=== PATIENT | female | born 1955 | race Caucasian/White ===

== ENCOUNTER 2020-02-27 14:11 | Emergency (ER) | payer MEDICARE, BC, SELFPAY ==
--- NOTE | 2020-02-27 14:30 | PC.NURSE ---
Left without being seen by nursing staff, left from the registration desk.
== END 2020-02-27 14:30 | disposition left against medical advice (07) ==
PROVIDERS: Emergency Provider Nurse Practitioner Family
DX: Z53.21 Procedure and treatment not carried out due to patient leaving prior to being seen by health care provider (principal)
CPT/HCPCS: 99199

== ENCOUNTER 2023-09-01 11:23 | Outpatient (CLI) | payer MEDICARE, BC, SELFPAY ==
[2023-09-01 12:21] LABS: Hematocrit 43.8 % (37.0-47.0); Hemoglobin 12.9 g/dL (12.0-15.0); Mean Corpuscular HGB Conc 29.5 g/dl (32-36); Mean Corpuscular Hemoglobin 30.9 pg (26-34); Mean Platelet Volume 9.6 fl (7.4-10.4); Platelet Count Result 325 k/mm3 (150-375); Red Blood Count 4.17 M/mm3 (4.2-5.4); Red Cell Distribution Width 13.3 % (11.5-14.5); White Blood Count 4.5 K/mm3 (4.5-10.0)
[2023-09-01 12:29] LABS: Add Urine Microscopic? YES; Appearance Urine Clear (Clear); Bacteria Urine 4+ /hpf; Bilirubin Urine Negative (Negative); Blood Urine Negative (Negative); Color Urine Yellow (Yellow); Glucose Urine UA 3+ mg/dL (Negative); Ketones Urine Negative (Negative); Leukocyte Esterase Ur Negative LEU/UL (Negative); Nitrate Urine Positive (Negative); Non Pathogenic Casts 0-2; Protein Urine Negative (Negative); RBC Urine 0-2 /hpf (0-2); Specific Grav Ur 1.027 (1.001-1.035); Squamous Epithelial Cell Urine None Seen /hpf (Few); Urobilinogen Urine 0.2 mg/dL (<2.0); WBC Urine 0-5 /hpf (0-3)
[2023-09-01 12:32] LABS: Anion Gap 9 mmol/L (8-16); Blood Urea Nitrogen 24 mg/dL (7-17); Calcium 9.4 mg/dL (8.4-10.2); Carbon Dioxide 19 mmol/L (22-30); Chloride 104 mmol/L (98-107); Estimated Glomerular Filt Rate 55; Glucose 195 mg/dL (65-110); INR 0.8; Potassium 4.1 mmol/L (3.4-5.0); Prothrombin Time 11.9 Seconds (11.1-14.7); Sodium 132 mmol/L (137-145)
[2023-09-01 12:33] LABS: Partial Thromboplastin Time 26.7 Seconds (22.3-36.8)
[2023-09-01 13:14] LABS: Hemoglobin A1C 8.6 % (<5.7)
== END 2023-09-01 11:24 | disposition home or self-care (01) ==
LOC: ANHSURGERY 11:29
PROVIDERS: PCP Registered Nurse; Visit Provider Neurological Surgery
DX: Z01.818 Encounter for other preprocedural examination (principal); G56.01 Carpal tunnel syndrome, right upper limb
CPT/HCPCS: 36415; 80048; 83036; 85027; 85610; 85730

== ENCOUNTER 2023-10-04 00:48 | Day surgery (SDC) | payer MEDICARE, BC, SELFPAY ==
[2023-08-31 10:31] VITALS: BMI 27.8
--- NOTE | 2023-08-31 11:53 | PC.NURSE ---
Report to the Outpatient Waiting Room, entrance under the green pavilion located off [facility], at time __9:00AM on date __09/06/23 . Planned Procedure Time: __11:00AM . Time changes happen often and if your time is changed the preop area will call you the afternoon before. - You and your visitor will be asked to self-screen and do not enter if you have any COVID symptoms. - A mask is optional within the hospital at this time. Patients may have clear liquids (water, carbonated beverages, clear teas, apple juice) until 3 hours prior to surgery with a maximum of 20 ounces. - No food from midnight until time of surgery. Take the following medications with a SIP of water the morning of surgery: __ANORO ELLIPTA INHALER, ALBUTEROL INHALER NEEDED DO NOT STOP ANY OF YOUR OTHER PRESCRIPTION MEDICATIONS PRIOR TO SURGERY ?EXCEPT THE FOLLOWING Medications to discontinue per physician ____HOLD ASPIRIN, VITAMINS/SUPPLEMENTS AND SEMAGLUTIDE 7 DAYS PRE-OP PER DR ORDONEZ PER PATIENT Date to take last dose 08/29/23 Please no make-up, nail ivorian, hairspray, perfume, deodorant, or body powder the day of surgery. No jewelry (including any body piercings) or valuables the day of surgery, leave them at home. Please take a shower or bath the night before, or the morning of, surgery with an antibacterial soap. Wear comfortable, loose fitting clothing. - Jewelry must be removed prior to entering the operating room. Rings and piercings that are not removed may be cut off. - The hospital will not accept responsibility for valuables. - Please leave all valuables, including medications, at home the day of surgery. If you are going home after surgery, a licensed interstate bus driver must drive you home. - NO public transportation without another adult if you receive anesthesia. - We recommend that an adult stay with you for 24 hours following discharge. - We also recommend that you do not drive, make important decision, drink alcoholic beverages, or take any drugs that were not prescribed by your health care provider for at least 24 hours after your discharge time. Follow any additional instructions given to you from your surgeon. If you or anyone in your household have experienced Covid symptoms in the past week, please notify your surgeon or the nurse liaison at the phone number below for possible testing. Telephone instructions given to ____PATIENT and asked if any additional questions and then verbalized understanding. Patient advised to call surgeon office or pre surgery nurse liaison [phone] if any additional questions.
--- NOTE | 2023-09-28 13:12 | PC.NURSE ---
Report to the Outpatient Waiting Room, entrance under the green pavilion located off [facility], at time __9:00AM on date _10/04/23 . Planned Procedure Time: __11:00AM . Time changes happen often and if your time is changed the preop area will call you the afternoon before. - You and your visitor will be asked to self-screen and do not enter if you have any COVID symptoms. - A mask is optional within the hospital at this time. Patients may have clear liquids (water, carbonated beverages, clear teas, apple juice) until 3 hours prior to surgery with a maximum of 20 ounces. - No food from midnight until time of surgery. Take the following medications with a SIP of water the morning of surgery: ____ANORO ELLIPTA INHALER. MAY USE ALBUTEROL INHALER NEEDED DO NOT STOP ANY OF YOUR OTHER PRESCRIPTION MEDICATIONS PRIOR TO SURGERY ?EXCEPT THE FOLLOWING Medications to discontinue per physician HOLD ASPIRIN AND ALL VITAMINS/SUPPLEMENTS 7 DAYS PRE-OP PER DR ORDONEZ(PER PATIENT) Date to take last dose 09/26/23 Please no make-up, nail swedish, hairspray, perfume, deodorant, or body powder the day of surgery. No jewelry (including any body piercings) or valuables the day of surgery, leave them at home. Please take a shower or bath the night before, or the morning of, surgery with an antibacterial soap. Wear comfortable, loose fitting clothing. Children are encouraged to wear pajamas. - Jewelry must be removed prior to entering the operating room. Rings and piercings that are not removed may be cut off. - The hospital will not accept responsibility for valuables. - Please leave all valuables, including medications, at home the day of surgery. If you are going home after surgery, a licensed log driver must drive you home. - NO public transportation without another adult if you receive anesthesia. - We recommend that an adult stay with you for 24 hours following discharge. - We also recommend that you do not drive, make important decision, drink alcoholic beverages, or take any drugs that were not prescribed by your health care provider for at least 24 hours after your discharge time. For Pediatric surgeries, we recommend two adults accompany the child home. Follow any additional instructions given to you from your surgeon. If you or anyone in your household have experienced Covid symptoms in the past week, please notify your surgeon or the nurse liaison at the phone number below for possible testing. Telephone instructions given to ___PATIENT and asked if any additional questions and then verbalized understanding. Patient advised to call surgeon office or pre surgery nurse liaison [phone] if any additional questions.
[2023-10-04] MEDS: LACTATED RINGERS 1,000 ML 30 ML IV CONT (10:12)
[2023-10-04 10:43] VITALS: BP 142/66; PULSE 51; RESP 18; TEMP 36.1; O2SAT 95
[2023-10-04 10:43] LABS: Glucose Point of Care 115 mg/dl (65-105)
--- NOTE | 2023-10-04 10:44 | WPDANESEPPF ---
Anes - Initial Pre Proc Eval Procedure: Operation Date: 10/04/23 11:00 Proposed Procedures p Left Carpal Tunnel Release - Agatha Scott MD Date/Time: 10/04/23 10:44 Surgeon: Agatha Scott MD Pre Op Diagnosis: left Carpal Tunnel syndrome Patient Data Age: 68 Gender: F Height: 1.65 m Weight: 75.7 kg Allergies Allergy/AdvReac Type Severity Reaction Status Date / Time Penicillins Allergy Rash Verified 10/04/23 09:58 meperidine [From Demerol] AdvReac Vomiting Verified 10/04/23 09:58 Home Medications Medication Instructions Recorded Confirmed Type albuterol sulfate 90 mcg/actuation 1 inh inhalation Q4H PRN Shortness 08/09/23 10/04/23 History aerosol inhaler Of Breath Or Wheezing aspirin 81 mg tablet,delayed 81 mg PO DAILY 08/09/23 10/04/23 History release (Adult Low Dose Aspirin) coenzyme Q10 200 mg capsule 200 mg PO DAILY 08/09/23 10/04/23 History dapagliflozin propanediol 10 mg 10 mg PO DAILY 08/09/23 10/04/23 History tablet (Farxiga) denosumab 60 mg/mL subcutaneous 60 mg subcut [id number] 08/09/23 10/04/23 History syringe ezetimibe 10 mg tablet 10 mg PO DAILY 08/09/23 10/04/23 History lisinopril 40 mg tablet 40 mg PO QAM 08/09/23 10/04/23 History metformin 500 mg tablet 1,000 mg PO BID 08/09/23 10/04/23 History metoclopramide HCl 5 mg tablet 5 mg PO QID PRN GERD 08/09/23 10/04/23 History multivitamin 1 tablet PO DAILY 08/09/23 10/04/23 History omega-3 fatty acids 1,000 mg 1,000 mg PO BID 08/09/23 10/04/23 History capsule omeprazole 20 mg tablet,delayed 20 mg PO HS 08/09/23 10/04/23 History release pantoprazole 40 mg tablet,delayed 40 mg PO QAM 08/09/23 10/04/23 History release pioglitazone 30 mg tablet 30 mg PO QAM 08/09/23 10/04/23 History rosuvastatin 10 mg tablet 10 mg PO 2XW 08/09/23 10/04/23 History semaglutide 3 mg tablet (Rybelsus) 3 mg PO QAM 08/09/23 10/04/23 History umeclidinium 62.5 mcg-vilanterol 1 inh inhalation DAILY 08/09/23 10/04/23 History 25 mcg/actuation powdr for inhalation (Anoro Ellipta) Laboratory Tests 10/04/23 10:31 POC Capillary Glucose 115 H mg/dl (65-105) Patient hx anesthesia problems: none Family hx anesthesia problems: none Results Review: All pre-operative results and documents have been reviewed as part of the pre-operative evaluation. PMF Past Medical History Medical History History of cancer Family History Family History Father Alcoholism Diabetes mellitus Hypertension Heart disease Mother Hypertension Heart disease Depression Sibling Alcoholism Diabetes mellitus Hypertension Heart disease Grandparent Diabetes mellitus Hypertension Depression Cerebrovascular accident Grandparent Hypertension Heart disease Social History Social History Smoking packs per day: 1 Smoking cigarettes per day: 20.0 Years smoked: 20 Smoking pack-years: 20.00 Smoking status: Former smoker Tobacco type: cigarettes Smoking end date: 12/10/92 Alcohol intake: never Substance use: never Substance use type: does not use Do You Feel Safe in your Home?: Yes Lack of Transportation: No Lack of Food: Never True Current Housing: I Have Housing Concerned About Future Housing: No Difficulty Paying Gas/Electric Bills: No Difficulty Paying for Meds: No Currently Unemployed: No Education: Bachelor's Degree Difficulty w/ Childcare or Family Care: No Living arrangements: alone Spiritual care concerns: No Anes - Eval Final PreProcedure Day of Procedure 10/04/23 10:44 Patient weight: overweight Heart: regular rate and rhythm Lungs: clear to auscultation Airway: Mallampati scale and special considerations (Implants. ) Neurological: alert and oriented Last oral intake: >/= 8 hours A
--- NOTE | 2023-10-04 10:53 | PM.IMHP ---
H&P: HPI History of Present Illness Date/Time: 10/04/23 10:53 Chief Complaint: carpal tunnel syndrome Narrative: Ms. Mcgarry is a? 68-year-old female with history of diabetes, hypertension, coronary artery disease, COPD and breast cancer who was referred by Dr. Hyde for evaluation of carpal tunnel syndrome.? She reports several years of progressive symptoms in the form of numbness in her 2nd through 4th fingers in particular and loss of fine motor function in her hands.? She has seemed this is related to her diabetes, but when she mentioned it to Dr. Hyde on an EMG being performed for her lower extremities, she was told that she had fairly severe bilateral carpal tunnel syndrome.? She denies ever having significant pain in her hands.? Her symptoms are worst 1st thing in the morning.? Her symptoms have progressed to point that she is no longer able to tie her shoes or button clothing. ? She notably has a history of coronary artery disease for which she follows with Dr. Scott at [facility].? She takes a baby aspirin.? She has never had any stents or heart surgery.? She uses inhalers for her COPD but no oxygen.? Her A1c was recently found to be 7.8%, and she was prescribed an additional medication to help with this. Review of Systems Review of Systems: All systems reviewed & are unremarkable except as noted in HPI and below PMFSH Past Medical History Medical History History of cancer Family History Family History Father Alcoholism Diabetes mellitus Hypertension Heart disease Mother Hypertension Heart disease Depression Sibling Alcoholism Diabetes mellitus Hypertension Heart disease Grandparent Diabetes mellitus Hypertension Depression Cerebrovascular accident Grandparent Hypertension Heart disease Social History Social History Smoking packs per day: 1 Smoking cigarettes per day: 20.0 Years smoked: 20 Smoking pack-years: 20.00 Smoking status: Former smoker Tobacco type: cigarettes Smoking end date: 12/10/92 Alcohol intake: never Substance use: never Substance use type: does not use Do You Feel Safe in your Home?: Yes Lack of Transportation: No Lack of Food: Never True Current Housing: I Have Housing Concerned About Future Housing: No Difficulty Paying Gas/Electric Bills: No Difficulty Paying for Meds: No Currently Unemployed: No Education: Bachelor's Degree Difficulty w/ Childcare or Family Care: No Living arrangements: alone Spiritual care concerns: No Meds Home Medications and Allergies Home Medications Medication Instructions Recorded Confirmed Type albuterol sulfate 90 mcg/actuation 1 inh inhalation Q4H PRN Shortness 08/09/23 10/04/23 History aerosol inhaler Of Breath Or Wheezing aspirin 81 mg tablet,delayed 81 mg PO DAILY 08/09/23 10/04/23 History release (Adult Low Dose Aspirin) coenzyme Q10 200 mg capsule 200 mg PO DAILY 08/09/23 10/04/23 History dapagliflozin propanediol 10 mg 10 mg PO DAILY 08/09/23 10/04/23 History tablet (Farxiga) denosumab 60 mg/mL subcutaneous 60 mg subcut [id number] 08/09/23 10/04/23 History syringe ezetimibe 10 mg tablet 10 mg PO DAILY 08/09/23 10/04/23 History lisinopril 40 mg tablet 40 mg PO QAM 08/09/23 10/04/23 History metformin 500 mg tablet 1,000 mg PO BID 08/09/23 10/04/23 History metoclopramide HCl 5 mg tablet 5 mg PO QID PRN GERD 08/09/23 10/04/23 History multivitamin 1 tablet PO DAILY 08/09/23 10/04/23 History omega-3 fatty acids 1,000 mg 1,000 mg PO BID 08/09/23 10/04/23 History capsule omeprazole 20 mg tablet,delayed 20 mg PO HS 08/09/23 10/04/23 History release pantoprazole 40 mg tablet,delayed 40 mg PO QAM 08/09/23 10/04/23 History release pioglitazone 30 mg tabl
--- NOTE | 2023-10-04 10:55 | WPDHPUPDATE1 ---
History and Physical Update Update Date/Time: 10/04/23 10:55 History and Physical has been reviewed, including an updated exam of the patient. There are NO changes in the patient's condition. Risks, benefits, and alternatives have been discussed and questions answered. Patient agrees to proceed with procedure.
[2023-10-04] MEDS: ceFAZolin 2 GM/D5W 50 ML 2 GM/50 ML BAG IVPB (11:08)
[2023-10-04] MEDS: BUPivacaine HCL 0.5% 10 ML AMP INFILTRATE (11:21)
[2023-10-04 11:49] VITALS: BP 116/58; PULSE 74; RESP 14; O2SAT 98
--- NOTE | 2023-10-04 11:50 | PM.OP ---
Procedure Note - Brief Procedure Note - Brief Date of procedure: 10/04/23 left Carpal Tunnel syndrome Post-op diagnosis: Same Procedure performed: Left carpal tunnel release Surgeon: Agatha Scott MD Embedded Nurse: Sharmaine Anesthesia: GETA Findings: Left carpal tunnel release without complication Estimated blood loss (mL): 5 Drains: No Packing: No Pathology: None sent Complications: No immediate complications Condition: Stable Disposition: PACU
--- NOTE | 2023-10-04 11:51 | P.OP_ITS ---
Procedure Note - Detailed Date of Procedure 10/04/23 Pre-op Diagnosis left Carpal Tunnel syndrome Post-op Diagnosis Same Procedure Performed Left carpal tunnel release Surgeon Agatha Scott MD Mobile Application Development Lead Sharmaine Anesthesia General Indications Ms. Mcgarry is a 68-year-old female with history of diabetes, hypertension, coronary artery disease, COPD, and breast cancer presents with several years of progressive numbness in her hands as well as worsening fine motor function.? On physical exam, she does have decreased sensation light touch in the left hand, positive Phalen's bilaterally, and slight opponens pollicis weakness on the right side.? She had a recent EMG showing evidence of severe bilateral median neuropathy at the carpal tunnel.? Given the progression of her weakness in particular, I have recommended proceeding with surgery in the form of a left carpal tunnel release.?Risks were discussed including bleeding, pain, infection, failure to relieve symptoms, recurrent symptoms, and nerve damage. The patient provided written informed consent to proceed. Description of Procedure The patient was brought back to the operating room and transferred supine to the OR table. Sedation was administered by anesthesia. The planned incision was marked on the left hand. The arm was prepped and draped in usual sterile fashion. Time out was conducted. Local anesthesia was injected into the planned incision. A 15-blade scalpel was used to open the planned incision. Bleeding was controlled with the bipolar. The soft tissue was spread bluntly with a Metzenbaum scissors to expose the flexor retinaculum. A self-retaining retractor was placed. A new 15-blade scalpel was used to open the distal portion of the flexor retinaculum. A freer was then placed under the flexor retinaculum to protect the underlying structures. The tenotomy scissors were used to open the proximal portion of the flexor retinaculum. The freer was passed into the proximal portion of the exposure to ensure the carpal tunnel was fully decompressed. Hemostasis was achieved with the bipolar. The incision was copiously irrigated. The incision was closed with 3-0 nylon in vertical mattress fashion. Sterile dressings were applied. The patient was awoken from anesthesia and transferred to PACU without incident. Billing code: [id number] Estimated Blood Loss 5 Drains No Packing No Pathology None sent Complications None Condition Stable Disposition PACU [facility] Billing Surgery - Charge Forward: Surgery Billing
[2023-10-04 12:09] LABS: Glucose Point of Care 97 mg/dl (65-105)
[2023-10-04 12:10] VITALS: BP 116/81; PULSE 70; RESP 14; O2SAT 99
[2023-10-04 12:40] VITALS: BP 135/59; PULSE 69; RESP 14
== END 2023-10-04 12:57 | disposition home or self-care (01) ==
PROVIDERS: PCP Registered Nurse; Visit Provider Neurological Surgery
PROC: (CPT 64721; principal; 2023-10-04 11:00)
DX: G56.02 Carpal tunnel syndrome, left upper limb (principal); I25.10 Atherosclerotic heart disease of native coronary artery without angina pectoris; I10 Essential (primary) hypertension; E11.9 Type 2 diabetes mellitus without complications; J44.9 Chronic obstructive pulmonary disease, unspecified; Z85.3 Personal history of malignant neoplasm of breast; Z79.51 Long term (current) use of inhaled steroids; Z79.82 Long term (current) use of aspirin; Z79.84 Long term (current) use of oral hypoglycemic drugs; Z87.891 Personal history of nicotine dependence
CPT/HCPCS: 64721; 82948; A4565; A9270; J0690; J1100; J2250; J2405; J2704; J3010; J7120

== ENCOUNTER 2023-10-21 16:15 | Emergency (ER) | payer MEDICARE, BC, SELFPAY ==
--- NOTE | ~2023-10-21 | XR_ITS ---
EXAM: XR foot RT min 3V DATE: 10/21/2023 16:30 HISTORY: right foot pain off on for 2 weeks,worsening/no injury . COMPARISON: None available. FINDINGS: Decreased mineralization. No fracture or dislocation. No lytic or blastic lesion. Mild sca ttered degenerative changes. Plantar enthesopathy. No erosion or periosteal change. Soft tissues with in normal limits. IMPRESSION: No acute osseous finding in the right foot. Reviewed, dictated and finalized at location K.
[2023-10-21 16:37] VITALS: BP 137/63; PULSE 80; RESP 16; TEMP 36.6; O2SAT 100
[2023-10-21 16:39] VITALS: BP 137/63; PULSE 80; RESP 16; TEMP 36.6; O2SAT 100
--- NOTE | 2023-10-21 16:48 | ED.EXTPRO ---
HPI - Extremity Problem General Chief complaint: Extremity Problem,Nontraumatic Stated complaint: rt lower extremity pain Time Seen by Provider: 10/21/23 16:18 Source: patient Mode of arrival: ambulatory Limitations: no limitations History of Present Illness HPI Narrative: 5-year-old female presents to [facility] complaints of pain to right foot for the past 2 weeks. Patient reports that 3 weeks ago she started with numbness to the plantar aspect of her right foot after cutting grass. Patient reports that she had started 2 weeks ago with pain to her right foot. Patient reports that the pain became worse 4-5 days ago. 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 Patient has been taking [id number] ibuprofen with minimal relief. Patient denies swelling, erythema, open wounds or bruising. Patient reports that the pain is currently 0/10. Patient reports that pain increases with ambulation MD Complaint: extremity pain Location: right Radiation: none Associated symptoms: denies other symptoms Related Data Home Medications Medication Instructions Recorded Confirmed albuterol sulfate 90 mcg/actuation 1 inh inhalation Q4H Shortness Of 08/09/23 10/04/23 aerosol inhaler Breath Or Wheezing aspirin 81 mg tablet,delayed 81 mg PO DAILY 08/09/23 10/04/23 release (Adult Low Dose Aspirin) coenzyme Q10 200 mg capsule 200 mg PO DAILY 08/09/23 10/04/23 dapagliflozin propanediol 10 mg 10 mg PO DAILY 08/09/23 10/04/23 tablet (Farxiga) denosumab 60 mg/mL subcutaneous 60 mg subcut [id number] 08/09/23 10/04/23 syringe ezetimibe 10 mg tablet 10 mg PO DAILY 08/09/23 10/04/23 lisinopril 40 mg tablet 40 mg PO QAM 08/09/23 10/04/23 metformin 500 mg tablet 1,000 mg PO BID 08/09/23 10/04/23 metoclopramide HCl 5 mg tablet 5 mg PO QID GERD 08/09/23 10/04/23 multivitamin 1 tablet PO DAILY 08/09/23 10/04/23 omega-3 fatty acids 1,000 mg 1,000 mg PO BID 08/09/23 10/04/23 capsule omeprazole 20 mg tablet,delayed 20 mg PO HS 08/09/23 10/04/23 release pantoprazole 40 mg tablet,delayed 40 mg PO QAM 08/09/23 10/04/23 release pioglitazone 30 mg tablet 30 mg PO QAM 08/09/23 10/04/23 rosuvastatin 10 mg tablet 10 mg PO 2XW 08/09/23 10/04/23 semaglutide 3 mg tablet (Rybelsus) 3 mg PO QAM 08/09/23 10/04/23 umeclidinium 62.5 mcg-vilanterol 1 inh inhalation DAILY 08/09/23 10/04/23 25 mcg/actuation powdr for inhalation (Anoro Ellipta) ferrous sulfate 325 mg (65 mg 325 mg PO DAILY 10/21/23 10/21/23 iron) tablet fluticasone propionate 50 1 spray intranasal DAILY 10/21/23 10/21/23 mcg/actuation nasal spray,suspension Allergies Allergy/AdvReac Type Severity Reaction Status Date / Time Penicillins Allergy Rash Verified 10/21/23 16:37 meperidine [From Demerol] AdvReac Vomiting Verified 10/21/23 16:37 Review of Systems Constitutional: Constitutional: Denies fatigue, Denies fever(s) and Denies weakness ENT: Denies vertigo and Denies dizziness Cardiovascular: Cardiovascular: Denies chest pain Respiratory: Respiratory: Denies cough, Denies dyspnea and Denies wheezing Gastrointestinal: Gastrointestinal: Denies diarrhea, Denies nausea and Denies vomiting Musculoskeletal: Musculoskeletal: Reports arthralgias, Denies joint swelling and Denies muscle cramps Comments: Right foot pain Integumentary/Breasts: Skin/Breast: Denies rash Neurologic: Denies dizziness, Denies syncope and Denies headache(s) [facility] Past Medical History Medical History History of cancer Family History Family History Father Alcoholism Diabetes mellitus Hypertension Heart disease Mother Hypertension Heart disease Depression Sibling Alcoholism Diabetes mellitus Hypertension Heart disease Grandparent Diabetes mellitus Hypertension Depression Cerebrovascular accident
== END 2023-10-21 17:05 | disposition home or self-care (01) ==
PROVIDERS: Emergency Provider Nurse Practitioner Family; PCP Registered Nurse
DX: M79.671 Pain in right foot (principal); Z79.82 Long term (current) use of aspirin; Z87.891 Personal history of nicotine dependence
CPT/HCPCS: 73630; 99213; G0463

== ENCOUNTER 2025-01-25 15:36 | Emergency (ER) | payer MEDICARE, BC, SELFPAY ==
--- NOTE | ~2025-01-25 | XR_ITS ---
EXAMINATION: XR chest 2V Exam Date/Time: 01/25/2025 16:06 CDT HISTORY: cough, coarse LL lobe Comparison: None. RESULT: Lines, tubes, and devices: Cholecystectomy clips. Lungs and pleura: 7 mm right upper lung pulmonary nodule. Segmental focus of groundglass opacity in the left midlung. Cardiomediastinal silhouette: Stable. Other: No acute upper abdominal finding. Mild retrolisthesis at T11-12 with severe degenerative valerio ge. Mild anterior wedge deformity at T12 and L1. IMPRESSION: Segmental groundglass opacity in the left midlung concerning for infection. 7 mm right upper lobe pulmonary nodule, recommend nonemergent, outpatient low-dose noncontrast CT of the chest for confirmation and further characterization. Grade 1 retrolisthesis at T11-12 with severe degenerative disc disease at that level. Mild anterior wedge deformity at T12 and L1, presumably chronic in the absence of acute pain/tenderne ss. Reviewed, dictated and finalized at location K. IMPRESSION: Segmental groundglass opacity in the left midlung concerning for infection. 7 mm right upper lobe pulmonary nodule, recommend nonemergent, outpatient low-d ose noncontrast CT of the chest for confirmation and further characterization. Grade 1 retrolisthesis at T11-12 with severe degenerative disc disease at that level. Mild anterior wedge deformity at T12 and L1, presumably chronic in the absence of acute pain/tenderness.
--- OUTSIDE RECORDS SUMMARY | 2025-01-25 15:40 | XMS_ITS | Encounter Summary ---
Author Organization [facility] Address [facility] [place] [address] Care Team Providers Care Full Decator Operator Name Role Phone Kvng Wray MD Primary Care Provider U Emilee Daley APRN Primary Care Provider [phone] Genia Cortes PharmD Unavailable [phone] Zacarias Scott MD Unavailable [phone] Encounter Details Date Type Department Care Team (Late st Contact Info) Description 02/01/2022 MyCThe [employer] Message Enc [facility] Medical Group Family & Internal Medicine [address] [address] Kvng Wray MD Back MRI Social History Tobacco Use Types Packs/Day Years Used Date Smoking Tobacco: Former Cigarettes 1 15 0 10/16/1977 - 10/16/1992 Smokeless Tobacco: Never Alcohol Use Standard Drinks/Week Comments Not Currently 0 (1 standard drink = 0.6 oz pur e alcohol) AUDIT-C Answer Date Recorded Q1: How often do you have a drink containing alc ohol? Never 10/16/2020 Average Number of Drinks Not on file 021 Frequency of Binge Drinking Not on file 12/2020 PHQ-2 Answer Date Recorded PHQ-2 Score - If the patient scores above 3, please move on to questions 3-9 0 02/16/2021 Comments No Sex and Gender Information Value Date Recorded Sex Assigned at Female 06/25/2024 11:30 AM NATURAL FABRICATOR Legal Sex Female 10:25 AM CDT Gender Identity Female 10/22/2021 9:50 AM CDT Sexual Orientation Not on file COVID-19 Exposure Response Date Recorded In the last 10 days, have yo u been in contact with someone who was confirmed or suspected to have Coronavirus/COVID-19? No / Unsure 02/01/2022 9:42 AM CDT documented as of this encounter Progress Notes * Jami Medina RN - 02/03/2022 10:14 AM CDT Please advise. documented in this encounter Plan of Treatment Upcoming Encounters Date Type Department Care Team (Late st Contact Info) Description 02/14/2025 11:20 AM CDT Office Visit [facility] Family & Internal Medicine [facility] [id number] [place] [phone] Emilee Lehman APRN [address] [address] 03/28/2025 10:28 AM CDT Hospital Encounter [facility] [address] [place] [place] [address] Rodrigo Lomeli MD [address] [place] [address] 03/28/2025 10:28 AM CDT - 03/28/2025 10:50 AM CDT Surgery [facility] [address] [place] [address] Rodrigo Lomeli MD [address] [place] [address] EGD 11/14/2025 10:20 AM CDT Office Visit [facility], [address] [place] [phone] Cheryl Hancock MD [address] [place] [address] Scheduled Procedures Name Priority Associated Diagnoses Date/Ti me EGD Gastroesophageal reflux disease, unspecified whether esophagitis present HH (hiatus hernia) RUQ pain 03/28/2025 10:28 AM CDT documented as of this encounter Visit Diagnoses Not on filedocumented in this encounter Additional Health Concerns Infection Onset Date Last Indicated Resolved Time MRSA Comment:02/17/21 +MRSA Nasal 06/09/22 negative nares (JK) 02/18/2021 02/18/2021 COVID-19 Rule Out 10/14/2022 10/14/2022 10/14/2022 3:19 PM CDT Influenza - Seasonal 10/14/2022 10/14/2022 023 12:32 AM CDT COVID-19 Rule Out 06/02/2023 06/02/2023 06/02/2023 10:09 AM NATURAL FABRICATOR Influenza - Seasonal 06/02/2023 06/02/2023 024 12:32 AM NATURAL FABRICATOR COVID-19 Rule Out 06/30/2023 06/30/2023 06/30/2023 4:38 PM NATURAL FABRICATOR Influenza - Seasonal 06/30/2023 06/30/2023 024 12:32 AM NATURAL FABRICATOR COVID-19 Rule Out 11/21/2023 11/21/2023 11/21/2023 12:22 PM CDT Influenza - Seasonal 11/21/2023 11/21/2023 024 12:33 AM CDT COVID-19 Rule Out 07/17/2024 07/17/2024 07/17/2024 1:58 PM NATURAL FABRICATOR Influenza - Seasonal 07/17/2024 07/17/2024 025 12:32 AM NATURAL FABRICATOR Assessment Noted Time PHQ-9 Depression Total Score: 1 02/17/20 10:04 AM CDT documented as of this encounter Care Teams Full Decator Operator Relationship Specialty Start Date End Date Kvng Wray MD PCP - General INTERNAL MEDICINE 10/26/20 08/03/22 Emilee Lehman APRN [address] [place] [address] PCP - General NURSE PRACTITIONER 08/04/22 Genia Cortes, PharmD [address] [place] [address] Lead Manufacturing Technician (Ambulatory) Pharmacist 01/02/23 02/26/23 [place] [address] [place] [address] Consulting Physician CARDIOVASCULAR DISEASE 11/20/24 documented as of this encounter
--- OUTSIDE RECORDS SUMMARY | 2025-01-25 15:40 | XMS_ITS | Encounter Summary ---
Author Organization [facility] Address [facility] [place] [address] Care Team Providers Care Web Development Intern Name Role Phone Kvng Wray MD Primary Care Provider U Emilee Daley APRN Primary Care Provider [phone] Genia Cortes PharmD Unavailable [phone] Zacarias Scott MD Unavailable [phone] Encounter Details Date Type Department Care Team (Late st Contact Info) Description 01/18/2021 MyChart Message Enc [facility] Medical Group Family & Internal Medicine [address] [address] Kvng Wray MD RE: Medication Questions Social History Tobacco Use Types Packs/Day Years Used Date Smoking Tobacco: Former Cigarettes 1 15 0 10/16/1996 - 10/17/2011 Smokeless Tobacco: Never Alcohol Use Standard Drinks/Week Comments Yes 0 (1 standard drink = 0.6 oz pur e alcohol) yearly AUDIT-C Answer Date Recorded Q1: How often do you have a drink containing alc ohol? Never 10/16/2020 Average Number of Drinks Not on file 021 Frequency of Binge Drinking Not on file 12/2020 Comments No Sex and Gender Information Value Date Recorded Sex Assigned at Female 06/25/2024 11:30 AM CREPE SOLE WIRE BRUSHER Legal Sex Female 10:25 AM CDT Gender Identity Female 10/22/2021 9:50 AM CDT Sexual Orientation Not on file COVID-19 Exposure Response Date Recorded In the last month, have you been in contact with someone who was confirmed or suspected to have Coronavirus / COVID-19? No / Unsure 01/08/2021 8:08 AM CDT documented as of this encounter Plan of Treatment Upcoming Encounters Date Type Department Care Team (Late st Contact Info) Description 02/14/2025 11:20 AM CDT Office Visit [facility] Family & Internal Medicine - [place] [address] [place] [address] Emilee Lehman, SHELLFISH FARMING SUPERVISOR [address] [phone] 03/28/2025 10:28 AM CDT Hospital Encounter [facility] [address] [place] [address] Rodrigo Lomeli MD [address] [place] [address] 03/28/2025 10:28 AM CDT - 03/28/2025 10:50 AM CDT Surgery [facility] [address] [place] [address] Rodrigo Lomeli MD [address] [place] [address] EGD 11/14/2025 10:20 AM CDT Office Visit [facility] Multispecialty Care - [address], [address] [phone] Cheryl Hancock MD [address] [place] [address] Scheduled Procedures Name Priority Associated Diagnoses Date/Ti [...] Rule Out 06/02/2023 06/02/2023 06/02/2023 10:09 AM CREPE SOLE WIRE BRUSHER Influenza - Seasonal 06/02/2023 06/02/2023 024 12:32 AM CREPE SOLE WIRE BRUSHER COVID-19 Rule Out 06/30/2023 06/30/2023 06/30/2023 4:38 PM CREPE SOLE WIRE BRUSHER Influenza - Seasonal 06/30/2023 06/30/2023 024 12:32 AM CREPE SOLE WIRE BRUSHER COVID-19 Rule Out 11/21/2023 11/21/2023 11/21/2023 12:22 PM CDT Influenza - Seasonal 11/21/2023 11/21/2023 024 12:33 AM CDT COVID-19 Rule Out 07/17/2024 07/17/2024 07/17/2024 1:58 PM CREPE SOLE WIRE BRUSHER Influenza - Seasonal 07/17/2024 07/17/2024 025 12:32 AM CREPE SOLE WIRE BRUSHER documented as of this encounter Care Teams Web Development Intern Relationship Specialty Start Date End Date Kvng Wray MD PCP - General INTERNAL MEDICINE 10/26/20 08/03/22 Emilee Lehman APRN [address] [facility] [address] [place] [address] PCP - General NURSE PRACTITIONER 08/04/22 Genia Cortes, PharmD [address] [place] [address] Surgical Supplies Sterilizer (Ambulatory) Pharmacist 01/02/23 02/26/23 [place] [address] [address] [address] Consulting Physician CARDIOVASCULAR DISEASE 11/20/24 documented as of this encounter
--- OUTSIDE RECORDS SUMMARY | 2025-01-25 15:40 | XMS_ITS | Encounter Summary ---
Author Organization [facility] Address [facility] [place] [address] Care Team Providers Care Heading Machine Operator Name Role Phone Kvng Wray MD Primary Care Provider U Emilee Daley APRN Primary Care Provider [phone] eGnia Cortes PharmD Unavailable [phone] Zacarias Scott MD Unavailable [phone] Encounter Details Date Type Department Care Team (Late st Contact Info) Description 03/01/[address] [facility] Medical Group Family & Internal Medicine [address] [address] Kvng Wray MD Herniated Disk Treatment Options Social History Tobacco Use Types Packs/Day Years [...] Sex Assigned at Female 06/25/2024 11:30 AM CAR CHECKER Legal Sex Female 10:25 AM CDT Gender Identity Female 10/22/2021 9:50 AM CDT Sexual Orientation Not on file COVID-19 Exposure Response Date Recorded In the last 10 days, have yo u been in contact with someone who was confirmed or suspected to have Coronavirus/COVID-19? No / Unsure 02/24/2022 7:49 AM CDT documented as of this encounter Plan of Treatment Upcoming Encounters Date Type Department Care Team (Late st Contact Info) Description 02/14/2025 11:20 AM CDT Office Visit [facility] Family & Internal Medicine - [place] [address] [place] [phone] Emilee Lehman APRN [address] [address] 03/28/2025 10:28 AM CDT Hospital Encounter [facility] [address] [place] [address] Rodrigo Lomeli MD [address] [place] [address] 03/28/2025 10:28 AM CDT - 03/28/2025 10:50 AM CDT Surgery [facility] [address] [place] [address] Rodrigo Lomeli MD [address] [place] [address] EGD 11/14/2025 10:20 AM CDT Office Visit [facility] Multispecialty Care - [address], [address] [place] [phone] Cheryl Hancock MD [address] [place] [address] Scheduled Procedures Name Priority Associated Diagnoses Date/Ti [...] Rule Out 06/02/2023 06/02/2023 06/02/2023 10:09 AM CAR CHECKER Influenza - Seasonal 06/02/2023 06/02/2023 024 12:32 AM CAR CHECKER COVID-19 Rule Out 06/30/2023 06/30/2023 06/30/2023 4:38 PM CAR CHECKER Influenza - Seasonal 06/30/2023 06/30/2023 024 12:32 AM CAR CHECKER COVID-19 Rule Out 11/21/2023 11/21/2023 11/21/2023 12:22 PM CDT Influenza - Seasonal 11/21/2023 11/21/2023 024 12:33 AM CDT COVID-19 Rule Out 07/17/2024 07/17/2024 07/17/2024 1:58 PM CAR CHECKER Influenza - Seasonal 07/17/2024 07/17/2024 025 12:32 AM CAR CHECKER Assessment Noted Time PHQ-9 Depression Total Score: 1 02/17/20 10:04 AM CDT documented as of this encounter Care Teams Heading Machine Operator Relationship Specialty Start Date End Date Kvng Wray MD PCP - General INTERNAL MEDICINE 10/26/20 08/03/22 Emilee Lehman APRN [address] [place] [address] PCP - General NURSE PRACTITIONER 08/04/22 Genia Cortes, PharmD [address] [place] [address] Conservation Specialist (Ambulatory) Pharmacist 01/02/23 02/26/23 [place] [address] [address] [place] [address] Consulting Physician CARDIOVASCULAR DISEASE 11/20/24 documented as of this encounter
--- OUTSIDE RECORDS SUMMARY | 2025-01-25 15:40 | XMS_ITS | Encounter Summary ---
Author Organization [facility] Address [facility] [place] [address] Care Team Providers Care Packing Floor Worker Name Role Phone Kvng Wray MD Primary Care Provider U Emilee Daley APRN Primary Care Provider [phone] Genia Cortes PharmD Unavailable [phone] Zacarias Scott MD Unavailable [phone] Encounter Details Date Type Department Care Team (Late st Contact Info) Description 12/17/2020 MyChart Message Enc [facility] Medical Group Family & Internal Medicine [address] [address] Kvng Wray MD RE: Other Social History Tobacco Use Types Packs/Day Years [...] Sex Assigned at Female 06/25/2024 11:30 AM DEPUTY COMMONWEALTH'S ATTORNEY Legal Sex Female 10:25 AM CDT Gender Identity Female 10/22/2021 9:50 AM CDT Sexual Orientation Not on file COVID-19 Exposure Response Date Recorded In the last month, have you been in contact with someone who was confirmed or suspected to have Coronavirus / COVID-19? No / Unsure 11/24/2020 2:27 PM CDT documented as of this encounter Progress Notes * Jami Medina RN - 12/21/2020 8:44 AM CDT Sent plan to [facility]-should be calling to set up injections * Wendy Candelario MA - 12/18/2020 8:07 AM CDT Please advise * Jami Medina RN - 12/17/2020 12:47 PM CDT Please advise documented in this encounter Plan of Treatment Upcoming Encounters Date Type Department Care Team (Late st Contact Info) Description 02/14/2025 11:20 AM CDT Office Visit [facility] Medical Group Family & Internal Medicine [facility] [address] [place] [address] Emilee Lehman APRN [address] [address] 03/28/2025 10:28 AM CDT Hospital Encounter [facility] [phone] [place] [address] Rodrigo Lomeli MD [address] [place] [address] 03/28/2025 10:28 AM CDT - 03/28/2025 10:50 AM CDT Surgery [facility] [address] [place] [address] Rodrigo Lomeli MD 3 [facility] [address] [place] [address] EGD 11/14/2025 10:20 AM CDT Office Visit [facility] Medical Group Mult[facility]ialty Care - [facility], [address] [place] [address] Cheryl Hancock MD 3 [place] [address] Scheduled Procedures Name Priority Associated Diagnoses Date/Ti [...] Rule Out 06/02/2023 06/02/2023 06/02/2023 10:09 AM DEPUTY COMMONWEALTH'S ATTORNEY Influenza - Seasonal 06/02/2023 06/02/2023 024 12:32 AM DEPUTY COMMONWEALTH'S ATTORNEY COVID-19 Rule Out 06/30/2023 06/30/2023 06/30/2023 4:38 PM DEPUTY COMMONWEALTH'S ATTORNEY Influenza - Seasonal 06/30/2023 06/30/2023 024 12:32 AM DEPUTY COMMONWEALTH'S ATTORNEY COVID-19 Rule Out 11/21/2023 11/21/2023 11/21/2023 12:22 PM CDT Influenza - Seasonal 11/21/2023 11/21/202311/30/2 024 12:33 AM CDT COVID-19 Rule Out 07/17/2024 07/17/2024 07/17/2024 1:58 PM DEPUTY COMMONWEALTH'S ATTORNEY Influenza - Seasonal 07/17/2024 07/17/2024 025 12:32 AM DEPUTY COMMONWEALTH'S ATTORNEY documented as of this encounter Care Teams Packing Floor Worker Relationship Specialty Start Date End Date Kvng Wray MD PCP - General INTERNAL MEDICINE 10/26/20 08/03/22 Emilee Lehman APRN [address] [place], [place] [phone] PCP - General NURSE PRACTITIONER 08/04/22 Genia Cortes, PharmD [address] [place] [address] Grain Handler (Ambulatory) Pharmacist 01/02/23 02/26/23 [place] [address] [place], [place] [phone] Consulting Physician CARDIOVASCULAR DISEASE 11/20/24 documented as of this encounter
--- OUTSIDE RECORDS SUMMARY | 2025-01-25 15:40 | XMS_ITS | Encounter Summary ---
Author Organization [facility] - [facility] Address [address] [place] [address] Care Team Providers Care Wool Dyer Name Role Phone Emilee Lehman APRN Primary Care Provider [phone] Zacarias Scott MD Unavailable [phone] Encounter Details Date Type Department Care Team (Late st Contact Info) Description 08/03/[address] [place] [address] [facility] Medical Group Multispecialty Care - [address] [place] [address] [employer], [facility] Provider test results Social History Tobacco Use Types Packs/Day Years Used Date Smoking Tobacco: Former Cigarettes 1 15 0 10/16/1977 - 10/16/1992 Smokeless Tobacco: Never Alcohol Use Standard Drinks/Week Comments Not Currently 0 (1 standard drink = 0.6 oz pur e alcohol) AUDIT-C Answer Date Recorded Q1: How often do you have a drink containing alcohol? Monthly or less 08/04/2022 Q2: How many drinks containi ng alcohol do you have on a typical day when you are drinking? Patient does not drink Q3: How often do you have si x or more drinks on one occasion? Never 08/04/2022 PHQ-2 Answer Date Recorded Patient Health Questionnaire-2 Score 0 06/30/2023 Comments No Sex and Gender Information Value Date Recorded Sex Assigned at Female 06/25/2024 11:30 AM FIELD MARKETING ASSOCIATE Legal Sex Female 10:25 AM CDT Gender Identity Female 10/22/2021 9:50 AM CDT Sexual Orientation Not on file documented as of this encounter Functional Status * RETIRED Are you deaf or do you have serious difficulty hearing Answer Date of Assessment Author Status No 06/15/2022 7:00 PM FIELD MARKETING ASSOCIATE Activ e * RETIRED Are you blind or do you have serious difficulty seeing, even when wearing glasses? Answer Date of Assessment Author Status No 06/15/2022 7:00 PM FIELD MARKETING ASSOCIATE Activ e * Do you have serious difficulty walking or climbing stairs? Answer Date of Assessment Author Status No 06/15/2022 7:00 PM Eufemia Lozano RN Active * Do you have difficulty dressing or bathing? Answer Date of Assessment Author Status No 06/15/2022 7:00 PM Eufemia Lozano RN Active * Because of a physical, mental, or emotional condition, do you have difficulty doing errands alone such as visiting a doctor's office or shopping? Answer Date of Assessment Author Status No 06/15/2022 7:00 PM Eufemia Lozano RN Active documented as of this encounter Mental Status * Because of a physical, mental, or emotional condition, do you have serious difficulty concentrating, remembering, or making decisions? Answer Entry Date Author Status No 06/15/2022 7:00 PM Eufemia Lozano RN Active documented in this encounter Plan of Treatment Upcoming Encounters Date Type Department Care Team (Late st Contact Info) Description 02/14/2025 11:20 AM CDT Office Visit [facility] Medical Group Family & Internal Medicine [facility] [address] [place] [address] Emilee Lehman, PNEUMATIC TUBE REPAIRER [address] [facility] [address] [place] [address] 03/28/2025 10:28 AM CDT Hospital Encounter [facility] [address] [place] [address] Rodrigo Lomeli MD [address] [place] [address] 03/28/2025 10:28 AM CDT - 03/28/2025 10:50 AM CDT Surgery [facility] [address] [place] [address] Rodrigo Lomeli MD 3 [facility] [address] [place] [address] EGD 11/14/2025 10:20 AM CDT Office Visit [facility] Medical Group Multispecialty Care - [facility], [address] [place] [address] Cheryl Hancock MD 3 [place] [address] Scheduled Procedures Name Priority Associated Diagnoses Date/Ti me EGD Gastroesophageal reflux disease, unspecified whether esophagitis present HH (hiatus hernia) RUQ pain 03/28/2025 10:28 AM CDT documented as of this encounter Goals Goal Patient Goal Type Associated Problems Recent Progress Patient-Stated? Author Blood Pressure < 140/90 Blood Pressure 120/60(2024 11:06 AM CDT) No Genia Cortes, PharmD Consistently Take Medications as Prescribed Lifestyle Not on track( 023 11:48 AM CDT) No Genia Cortes, PharmD Note: Hypertension: Patient will monitor B/P several times per week and report to physician or CC if B/P consistently >140/90 1. Check B/P several times per week and follow up with your provider as scheduled. 2. Eat healthy diet and stay physically active more than 3 times a week or as indicated by PCP. 3. Take blood pressure medication exactly as prescribed. 4. Patient will maintain a low sodium diet. 5. Patient will call provider with any CP, SOB, visual disturbances, headaches, lightheadedness, dizziness. Patient to take all medications as prescribed and have regular follow ups with provider as scheduled. Establish Plan for Symptom Monitoring Lifestyle Not on track( 023 11:48 AM CDT) No Chemo Cortesa P, PharmD Note: Diabetes: Patient will manage diabetes and report any symptoms of hypo/hyperglycemia to provider. Patient to follow diabetic medication regimen. Patient will maintain a carb consistent diet and avoid concentrated sweets. Patient will monitor blood sugar readings at least twice a day and call provider with consistent readings <80 and >200. If symptoms of excessive hunger, blurred vision, shakiness, light headedness, anxiety present, check blood sugar if able or treat the hypoglycemia. If glucose is less than 70, take 15 grams of glucose that is half a cup of juice or milk or regular soda or 3 glucose tablets and recheck in 15 minutes. Patient will take medications as prescribed. Patient will follow up with provider as scheduled HGB A1C < 7 Result Component 8(08/09/2024 12:00 AM FIELD MARKETING ASSOCIATE) Genia Atkins, PharmD documented as of this encounter Visit Diagnoses Not on filedocumented in this encounter Additional Health Concerns Infection Onset Date Last Indicated Resolved Time MRSA Comment:02/17/21 +MRSA Nasal 06/09/22 negative nares (JK) 02/18/2021 02/18/2021 COVID-19 Rule Out 11/21/2023 11/21/2023 11/21/2023 12:22 PM CDT Influenza - Seasonal 11/21/2023 11/21/2023 024 12:33 AM CDT COVID-19 Rule Out 07/17/2024 07/17/2024 07/17/2024 1:58 PM FIELD MARKETING ASSOCIATE Influenza - Seasonal 07/17/2024 07/17/2024 025 12:32 AM FIELD MARKETING ASSOCIATE Assessment Noted Time PHQ-9 Depression Total Score: 2 08/04/19 23 10:35 AM FIELD MARKETING ASSOCIATE documented as of this encounter Care Teams Wool Dyer Relationship Specialty Start Date End Date Emilee Lehman APRN [address] [employer] [facility] [address] [place], [place] [id number] PCP - General NURSE PRACTITIONER 08/04/22 [place] [address] [employer] [address] [address] Consulting Physician CARDIOVASCULAR DISEASE 11/20/24 documented as of this encounter
--- OUTSIDE RECORDS SUMMARY | 2025-01-25 15:40 | XMS_ITS | Encounter Summary ---
Author Organization [facility] Address [facility] [place] [address] Care Team Providers Care Sampling Theory Teacher Name Role Phone Kvng Wray MD Primary Care Provider U Emilee Daley APRN Primary Care Provider [phone] Genia Cortes PharmD Unavailable [phone] Zacarias Scott MD Unavailable [phone] Encounter Details Date Type Department Care Team (Late st Contact Info) Description 03/04/2021 [facility] Message Enc [facility] Medical Group Family & Internal Medicine [address] [address] [facility] Provider results Social History Tobacco Use Types Packs/Day Years Used Date Smoking Tobacco: Former Cigarettes 1 15 0 10/16/1977 - 10/16/1992 Smokeless Tobacco: Never Alcohol Use Standard Drinks/Week Comments Yes 0 (1 standard drink = 0.6 oz pur e alcohol) Once a year use AUDIT-C Answer Date Recorded Q1: How often [...] Sex Assigned at Female 06/25/2024 11:30 AM HEAD OF BUSINESS DEVELOPMENT Legal Sex Female 10:25 AM CDT Gender Identity Female 10/22/2021 9:50 AM CDT Sexual Orientation Not on file COVID-19 Exposure Response Date Recorded In the last month, have you been in contact with someone who was confirmed or suspected to have Coronavirus / COVID-19? No / Unsure 02/24/2021 7:44 AM CDT documented as of this encounter Plan of Treatment Upcoming Encounters Date Type Department Care Team (Late st Contact Info) Description 02/14/2025 11:20 AM CDT Office Visit [facility] Family & Internal Medicine [facility] [address] [place] [address] Emilee Lehman, WELT RANDER [address] [address] 03/28/2025 10:28 AM CDT Hospital Encounter [facility] [address] [place] [address] Rodrigo Lomeli MD [address] [place] [address] 03/28/2025 10:28 AM CDT - 03/28/2025 10:50 AM CDT Surgery [facility] [address] [place] [address] Rodrigo Lomeli MD [address] [place] [address] EGD 11/14/2025 10:20 AM CDT Office Visit [facility] Multispecialty Care - [address], Suite [facility] [place] [place] [address] Cheryl Hancock MD [address] [place] [address] Scheduled Procedures Name Priority Associated Diagnoses Date/Ti [...] Rule Out 06/02/2023 06/02/2023 06/02/2023 10:09 AM HEAD OF BUSINESS DEVELOPMENT Influenza - Seasonal 06/02/2023 06/02/2023 024 12:32 AM HEAD OF BUSINESS DEVELOPMENT COVID-19 Rule Out 06/30/2023 06/30/2023 06/30/2023 4:38 PM HEAD OF BUSINESS DEVELOPMENT Influenza - Seasonal 06/30/2023 06/30/2023 024 12:32 AM HEAD OF BUSINESS DEVELOPMENT COVID-19 Rule Out 11/21/2023 11/21/2023 11/21/2023 12:22 PM CDT Influenza - Seasonal 11/21/2023 11/21/2023 024 12:33 AM CDT COVID-19 Rule Out 07/17/2024 07/17/2024 07/17/2024 1:58 PM HEAD OF BUSINESS DEVELOPMENT Influenza - Seasonal 07/17/2024 07/17/2024 025 12:32 AM HEAD OF BUSINESS DEVELOPMENT Assessment Noted Time PHQ-9 Depression Total Score: 1 02/17/20 21 10:04 AM CDT documented as of this encounter Care Teams Sampling Theory Teacher Relationship Specialty Start Date End Date Kvng Wray MD PCP - General INTERNAL MEDICINE 10/26/20 08/03/22 Emilee Lehman APRN [address] [place] [address] PCP - General NURSE PRACTITIONER 08/04/22 Genia Cortes, PharmD [address] [place] [address] Erosion Control Coordinator (Ambulatory) Pharmacist 01/02/23 02/26/23 [place] [address] [address] Consulting Physician CARDIOVASCULAR DISEASE 11/20/24 documented as of this encounter
--- OUTSIDE RECORDS SUMMARY | 2025-01-25 15:40 | XMS_ITS | Encounter Summary ---
Author Organization [facility] Address [address] [facility] [place] [address] Care Team Providers Care Broadcast Supervisor Name Role Phone Zulay Carter MD Primary Care Provider [phone] Wes Frazier MD Unavailable [phone] Cielo Connell MD Unavailable Emile Carias MD Unavailable [phone] Last Paul MD Unavailable [phone] Martha Ziegler MD Unavailable [phone] Yakelin Kelley MD Unavailable Zulay Carter MD Unavailable [phone] Lisa Prado MD Unavailable [phone] Tobi Crews MD Unavailable Aditi Leon CHILD DEVELOPMENT TEACHER-INSOLE BUFFER Unavailable [phone] Kvng Wray MD Primary Care Provider + Emilee Lehman CHILD DEVELOPMENT TEACHER-INSOLE BUFFER Primary Care Provider Ariella Lee MD Unavailable [phone] Encounter Details Date Type Department Care Team (Late st Contact Info) Description 07/24/2019 Telephone [facility] Cancer Care - Radiation Oncology [address] [place] [address] Dyana Jorgensen Social History Tobacco Use Types Packs/Day Years Used Date Smoking Tobacco: Former Cigarettes 1 19 0 11/25/1973 - 11/25/1992 Smokeless Tobacco: Never Alcohol Use Standard Drinks/Week Comments No 0 (1 standard drink = 0.6 oz pur e alcohol) rare Comments No Sex and Gender Information Value Date Recorded Sex Assigned at Female 05/27/2020 7:00 AM HORSE RIDING COACH OR INSTRUCTOR Legal Sex Female 6:00 AM HORSE RIDING COACH OR INSTRUCTOR Gender Identity Female 05/27/2020 7:00 AM HORSE RIDING COACH OR INSTRUCTOR Sexual Orientation Straight 03/06/2023 11 :11 AM CDT 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 Not on file Not on file documented as of this encounter Plan of Treatment Upcoming Encounters Date Type Department Care Team (Late st Contact Info) Description 03/03/2025 10:40 AM CDT Office Visit [facility] - Hematology/Oncology [address] [place] [address] Ariella Lee MD [address] [address] 08/11/2025 10:00 AM HORSE RIDING COACH OR INSTRUCTOR Appointment [facility] [address] [place] [address] 09/16/2025 11:00 AM CDT Appointment [facility] Pulmonology [address] [place] [address] 09/17/2025 10:30 AM CDT Office Visit [facility] Pulmonology [address] [facility] [address] [place] [address] [place] [address] [facility] [address] [place] [address] documented as of this encounter Goals Goal Patient Goal Type Associated Problems Recent Progress Patient-Stated? Author Blood Pressure < 140/90 Blood Pressure 132/72(2024 10:54 AM CDT) No Avis, Mikaela, CHILD DEVELOPMENT TEACHER-INSOLE BUFFER HEMOGLOBIN A1C < 7.0 Result Component 8.1( 0 8:38 AM CDT) No Mikaela Albarran APRN-CNP documented as of this encounter Visit Diagnoses Not on filedocumented in this encounter Care Teams Broadcast Supervisor Relationship Specialty [place] [address] [place] [address] PCP - General 07/10/08 11/12/20 [place] [address] [place], [place] [address] PCP - Attributed-MSSP 11/10/18 09/09/20 Aditi Leon APRN-INSOLE BUFFER [address] [place] [address] PCP - Attributed-MSSP 09/10/20 07/01/21 Kvng Wray MD [address] [place] [address] PCP - General 11/13/20 09/12/23 Emilee Lehman CHILD DEVELOPMENT TEACHER-INSOLE BUFFER [address] [address] PCP - General 09/13/23 [place] [address] [place] [address] Pulmonary Disease 01/10/11 [place] [address] [place] [address] Ophthalmology 08/09/12 [place] [address] [place] [address] Otolaryngology 02/03/14 [place] [address] [place] [address] Gastroenterology 02/03/14 [place] [address] [place] [address] Hand Surgery 02/03/14 [place] [address] [place] [address] Hematology and Oncology 08/24/18 [place] [address] [place] [address] General Surgery 02/18/19 [place] [address] [place] [id number] Rheumatology 05/28/20 Ariella Lee MD [address] [facility] [address] [place], [place] [id number] Hematology and Oncology 03/04/24 documented as of this encounter
--- OUTSIDE RECORDS SUMMARY | 2025-01-25 15:40 | XMS_ITS | Encounter Summary ---
Author Organization [facility] Address [facility] [place] [address] Care Team Providers Care Engineering Supervisor Name Role Phone Kvng Wray MD Primary Care Provider U Emilee Daley APRN Primary Care Provider [phone] Genia Cortes PharmD Unavailable Zacarias Scott MD Unavailable [phone] Encounter Details Date Type Department Care Team (Late st Contact Info) Description 05/10/2021 [facility] Message Enc [facility] Medical Group Family & Internal Medicine [address] [address] Kvng Wray MD Bone Density Scan Social History Tobacco Use Types Packs/Day Years [...] Sex Assigned at Female 06/25/2024 11:30 AM TRAFFIC MONITOR SPECIALIST Legal Sex Female 10:25 AM CDT Gender Identity Female 10/22/2021 9:50 AM CDT Sexual Orientation Not on file COVID-19 Exposure Response Date Recorded In the last month, have you been in contact with someone who was confirmed or suspected to have Coronavirus / COVID-19? Unable to assess 05/13/2021 1:13 PM TRAFFIC MONITOR SPECIALIST documented as of this encounter Progress Notes * Jami Medina RN - 05/10/2021 1:52 PM CST Please advise FIC MONITOR SPECIALIST documented in this encounter Plan of Treatment Upcoming Encounters Date Type Department Care Team (Late st Contact Info) Description 02/14/2025 11:20 AM CDT Office Visit [facility] Family & Internal Medicine [facility] [address] [place] [phone] Emilee Lehman APRN [address] [address] 03/28/2025 10:28 AM CDT Hospital Encounter [facility] [address] [place] [address] Rodrigo Lomeli MD [address] [place] [address] 03/28/2025 10:28 AM CDT - 03/28/2025 10:50 AM CDT Surgery [facility] [address] [place] [address] Rodrigo Lomeli MD [address] [place] [address] EGD 11/14/2025 10:20 AM CDT Office Visit [facility] Multispecialty Care - [address] [place] [address] Cheryl Hancock MD 3 [place] [address] Scheduled Procedures Name Priority Associated Diagnoses Date/Ti [...] Rule Out 06/02/2023 06/02/2023 06/02/2023 10:09 AM TRAFFIC MONITOR SPECIALIST Influenza - Seasonal 06/02/2023 06/02/2023 024 12:32 AM TRAFFIC MONITOR SPECIALIST COVID-19 Rule Out 06/30/2023 06/30/2023 06/30/2023 4:38 PM TRAFFIC MONITOR SPECIALIST Influenza - Seasonal 06/30/2023 06/30/2023 024 12:32 AM TRAFFIC MONITOR SPECIALIST COVID-19 Rule Out 11/21/2023 11/21/2023 11/21/2023 12:22 PM CDT Influenza - Seasonal 11/21/2023 11/21/2023 024 12:33 AM CDT COVID-19 Rule Out 07/17/2024 07/17/2024 07/17/2024 1:58 PM TRAFFIC MONITOR SPECIALIST Influenza - Seasonal 07/17/2024 07/17/2024 025 12:32 AM TRAFFIC MONITOR SPECIALIST Assessment Noted Time PHQ-9 Depression Total Score: 1 02/17/20 10:04 AM CDT documented as of this encounter Care Teams Engineering Supervisor Relationship Specialty Start Date End Date Kvng Wray MD PCP - General INTERNAL MEDICINE 10/26/20 08/03/22 Emilee Lehman APRN [address] [place] [address] PCP - General NURSE PRACTITIONER 08/04/22 Genia Cortes, PharmD [address] [place] [address] Engineering Writer (Ambulatory) Pharmacist 01/02/23 02/26/23 [place] [address] [place] [address] Consulting Physician CARDIOVASCULAR DISEASE 11/20/24 documented as of this encounter
--- OUTSIDE RECORDS SUMMARY | 2025-01-25 15:40 | XMS_ITS ---
Author Organization [facility] Address [address] [place] [address] Care Team Providers Care Medical Billing Specialist Name Role Phone Emilee Lehman APRN Primary Care Provider [phone] Zacarias Scott MD Unavailable [phone] Active Problems * This document contains information received from the source organization and may not represent a complete record from that organization. Problem Noted Date Diagnosed Date Polyneuropathy due to type 2 diabetes mellitus ([facility]) 11/07/2024 Enteritis of small intestine due to enterotoxigenic Escherichia coli 08/19/2024 Intestinal infection due to bacteria causing bloody diarrhea 08/19/2024 Hypophosphatemia 08/19/2024 Generalized weakness 08/18/2024 High anion gap metabolic acidosis 08/18/2024 Lower abdominal pain 08/18/2024 Hypovolemia dehydration 08/18/2024 Hyponatremia 08/18/2024 Adrenal gland neoplasm 08/17/2024 Clostridium difficile colitis 08/17/2024 Clostridium difficile infection 08/17/2024 HH (hiatus hernia) 07/05/2024 RUQ pain 07/05/2024 Malignant neoplasm of upper- outer quadrant of left breast in female, estrogen receptor negative ([facility]) 06/03/2024 Overview (06/03/2024): 04/06/20 Aditi Leon APRN-SCRAP METAL PROCESSING WORKER Nurse Practitioner Migraine with aura 06/03/2024 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 ([facility]) 11/28/2023 Carpal tunnel syndrome 11/28/2023 Sacroiliitis 08/28/2023 Facet hypertrophy of lumbar region 08/28/2023 Foraminal stenosis of lumbar region 08/28/2023 Degeneration of lumbar intervertebral disc 06/27 Iron deficiency 04/03/2023 Chronic obstructive pulmonary disease ([facility]) 11/04/2022 Chronic bronchitis ([facility]) 11/04/2022 Biliary dyskinesia 05/02/2022 Overview (05/02/2022): Added automatically from request for surgery [id number] Sciatica 03/09/2022 Lumbosacral disc herniation 03/09/2022 Left sciatic nerve pain 02/01/2022 Chronic rhinitis 07/30/2021 Anemia, unspecified type 02/23/2021 Uncontrolled type 2 diabetes mellitus with hyperglycemia ([facility]) 02/09/2021 Age related osteoporosis 12/21/2020 Type II diabetes mellitus ([facility]) 10/10 BMI 29.0-29.9,adult 10/26/2020 Hx of breast cancer 10/26/2020 Elevated cholesterol 07/10/2008 Overview (06/03/2024): Pravachol- muscle aches 06/2009 Also tried Lipitor in the past. Adjustment reaction 09/17/2007 Benign neoplasm of colon 10/20/2006 Esophageal reflux 07/21/2006 Osteoarthrosis 07/22/2005 Essential hypertension 07/30/2004 Current Treatment and Therapy Plans No current plan information found. Past Treatment and Therapy Plans Resolved Problems Problem Noted Date Diagnosed Date Resolved Date Care Management 01/02/2023 02/27/2023 Cortical age-related cataract of both eyes 02/01/2022 04/03/2023 Preop exam for internal medicine 02/01/2022 05/30/2022 Age-related nuclear cataract of both eyes 07/05/2021 05/07/2023 Acute recurrent maxillary sinusitis 04/29/2021 07/05/2021 Chest pain on exertion 02/23/202108/04 Nose colonized with MRSA 02/23/202101/2023 Right upper quadrant abdominal pain 10/19/2020 04/29/2021
--- OUTSIDE RECORDS SUMMARY | 2025-01-25 15:40 | XMS_ITS | Encounter Summary ---
Author Organization [facility] Address [address] [place] [address] Care Team Providers Care Election Judge Name Role Phone Emilee Lehman APRN Primary Care Provider [phone] Zacarias Scott MD Unavailable [phone] Encounter Details Date Type Department Care Team (Late st Contact Info) Description 07/12/2023 Guidance Softwaret Message Enc [facility] Medical Group Family & Internal Medicine [facility] [address] [place] [address] Emilee eLhman APRN [address] [address] MRI Results Social History Tobacco Use Types Packs/Day Years [...] Sex Assigned at Female 06/25/2024 11:30 AM COLLAR SETTER Legal Sex Female 10:25 AM CDT Gender Identity Female 10/22/2021 9:50 AM CDT Sexual Orientation Not on file documented as of this encounter Functional Status * RETIRED Are you deaf or do you have serious difficulty hearing Answer Date of Assessment Author Status No 06/15/2022 7:00 PM COLLAR SETTER Activ e * RETIRED Are you blind or do you have serious difficulty seeing, even when wearing glasses? Answer Date of Assessment Author Status No 06/15/2022 7:00 PM COLLAR SETTER Activ e * Do you have serious difficulty walking or climbing stairs? Answer Date of Assessment Author Status No 06/15/2022 7:00 PM COLLAR SETTER Eufemia Jimenez RN Active * Do you have difficulty [...] Description 02/14/2025 11:20 AM CDT Office Visit [facility] Medical Group Family & Internal Medicine [facility] [address] [place] [address] Emilee Lehman, DIRECTOR OF ROOMS [address] [facility] [address] [place] [address] 03/28/2025 10:28 AM CDT Hospital Encounter [facility] [address] [place], [place] [address] Rodrigo Lomeli MD [address] [place] [address] 03/28/2025 10:28 AM CDT - 03/28/2025 10:50 AM CDT Surgery [facility] [address] [place] [address] Rodrigo Lomeli MD 3 [facility] [address] [place] [address] EGD 11/14/2025 10:20 AM CDT Office Visit [facility] Medical Group Multispecialty Care - [facility] [address] [facility], [address] [place] [address] Cheryl Hancock MD 3 [place] [address] Scheduled Procedures Name Priority Associated Diagnoses Date/Ti [...] on track( 023 11:48 AM CDT) No Genai Cortes, PharmD Note: Hypertension: Patient will monitor [...] Not on track( 023 11:48 AM CDT) Genia Atkins, PharmD Note: Diabetes: Patient will manage diabetes [...] < 7 Result Component 8(08/09/2024 12:00 AM COLLAR SETTER) Genia Atkins, PharmD documented as of this encounter Visit Diagnoses Not on filedocumented in this encounter Additional Health Concerns Infection Onset Date Last Indicated Resolved Time MRSA Comment:02/17/21 +MRSA Nasal 06/09/22 negative nares (JK) 02/18/2021 02/18/2021 COVID-19 Rule Out 11/21/2023 11/21/2023 11/21/2023 12:22 PM CDT Influenza - Seasonal 11/21/2023 11/21/2023 024 12:33 AM CDT COVID-19 Rule Out 07/17/2024 07/17/2024 07/17/2024 1:58 PM COLLAR SETTER Influenza - Seasonal 07/17/2024 07/17/2024 025 12:32 AM COLLAR SETTER Assessment Noted Time PHQ-9 Depression Total Score: 2 08/04/19 23 10:35 AM COLLAR SETTER documented as of this encounter Care Teams Election Judge Relationship Specialty Start Date End Date Emilee Lehman APRN [address] [address] PCP - General NURSE PRACTITIONER 08/04/22 [place] [address] [place] [address] Consulting Physician CARDIOVASCULAR DISEASE 11/20/24 documented as of this encounter
--- OUTSIDE RECORDS SUMMARY | 2025-01-25 15:40 | XMS_ITS | Encounter Summary ---
Author Organization [facility] Address [address] [place] [address] Care Team Providers Care Lock Plater Name Role Phone Emilee Lehman APRN Primary Care Provider [phone] Zacarias Scott MD Unavailable [phone] Encounter Details Date Type Department Care Team (Late st Contact Info) Description 09/14/2023 SwiftPayMD(TM) by Icon[employer] Datat Message Enc [facility] Medical Group Family & Internal Medicine [facility] [address] [place] [address] Emilee Lehman APRN [address] [address] Medication Refills Social History Tobacco Use Types Packs/Day Years [...] Sex Assigned at Female 06/25/2024 11:30 AM EXPORT SALES MANAGER Legal Sex Female 10:25 AM CDT Gender Identity Female 10/22/2021 9:50 AM CDT Sexual Orientation Not on file documented as of this encounter Functional Status * RETIRED Are you deaf or do you have serious difficulty hearing Answer Date of Assessment Author Status No 06/15/2022 7:00 PM EXPORT SALES MANAGER Activ e * RETIRED Are you blind or do you have serious difficulty seeing, even when wearing glasses? Answer Date of Assessment Author Status No 06/15/2022 7:00 PM EXPORT SALES MANAGER Activ e * Do you have serious difficulty walking or climbing stairs? Answer Date of Assessment Author Status No 06/15/2022 7:00 PM EXPORT SALES MANAGER Eufemia Jimenez RN Active * Do you have difficulty dressing or bathing? Answer Date of Assessment Author Status No 06/15/2022 7:00 PM EXPORT SALES MANAGER Eufemia Jimenez RN Active * Because of a physical, [...] Lozano RN Active documented in this encounter Progress Notes * Addie Valdovinos MA - 09/14/2023 9:58 AM CDT No worries, you have a great day! Addie Martino CMA documented in this encounter Plan of Treatment Upcoming Encounters Date Type Department Care Team (Late st Contact Info) Description 02/14/2025 11:20 AM CDT Office Visit [facility] Medical Group Family & Internal Medicine [address] [address] Emilee Lehman APRN [address] [place] [address] 03/28/2025 10:28 AM CDT Hospital Encounter [facility] [address] [place] [address] Rodrigo Lomeli MD 3 [facility] [address] [place] [address] 03/28/2025 10:28 AM CDT - 03/28/2025 10:50 AM CDT Surgery [facility] [address] [place] [address] Rodrigo Lomeli MD 3 [facility] [address] [place] [address] EGD 11/14/2025 10:20 AM CDT Office Visit [facility] Medical Group Multispecialty Care - [facility] 3 [facility], [address] [place] [address] Cheryl Hancock MD 3 [place] [address] Scheduled Procedures Name Priority Associated Diagnoses Date/Ti [...] < 7 Result Component 8(08/09/2024 12:00 AM EXPORT SALES MANAGER) Geina Atkins, PharmD documented as of this encounter Visit Diagnoses Not on filedocumented in this encounter Additional Health Concerns Infection Onset Date Last Indicated Resolved Time MRSA Comment:02/17/21 +MRSA Nasal 06/09/22 negative nares (JK) 02/18/2021 02/18/2021 COVID-19 Rule Out 11/21/2023 11/21/2023 11/21/2023 12:22 PM CDT Influenza - Seasonal 11/21/2023 11/21/2023 024 12:33 AM CDT COVID-19 Rule Out 07/17/2024 07/17/2024 07/17/2024 1:58 PM EXPORT SALES MANAGER Influenza - Seasonal 07/17/2024 07/17/2024 025 12:32 AM EXPORT SALES MANAGER Assessment Noted Time PHQ-9 Depression Total Score: 2 08/04/19 10:35 AM EXPORT SALES MANAGER documented as of this encounter Care Teams Lock Plater Relationship Specialty Start Date End Date Emilee Lehman APRN [address] [place] [address] PCP - General NURSE PRACTITIONER 08/04/22 [place] [address] [place] [address] Consulting Physician CARDIOVASCULAR DISEASE 11/20/24 documented as of this encounter
--- OUTSIDE RECORDS SUMMARY | 2025-01-25 15:40 | XMS_ITS | Encounter Summary ---
Author Organization [facility] Address [address] [facility] [place] [address] Care Team Providers Care Chief Resource Officer Name Role Phone Zulay Carter MD Primary Care Provider [phone] Wes Frazier MD Unavailable [phone] Cielo Connell MD Unavailable [phone] Emile Carias MD Unavailable [phone] Last Paul MD Unavailable [phone] Martha Ziegler MD Unavailable [phone] Vinnie Gomez MD Unavailable Mi Bejarano MD Unavailable Unavailable Yakelin Kelley MD Unavailable Zulay Carter MD Unavailable Lisa Prado MD Unavailable [phone] Tobi Crews MD Unavailable Aditi Leon CHIROPRACTIC PRACTICE MANAGER-DIE CUTTER Unavailable + [phone] Kvng Wray MD Primary Care Provider + Emilee Lehman CHIROPRACTIC PRACTICE MANAGER-DIE CUTTER Primary Care Provider Ariella Lee MD Unavailable [phone] Reason for Visit * Reason Onset Date Comments MEDICATION REFILL 08/21/2012 Encounter Details Date Type Department Care Team (Latest Contact Info) Description 08/21/2012 Refill TEST MEDICATION REFILL Social History Tobacco Use Types Packs/Day Years Used Date Smoking Tobacco: Former Cigarettes 1 19 0 11/25/1973 - 11/25/1992 Smokeless Tobacco: Never Alcohol Use Standard Drinks/Week Comments Yes 0 (1 standard drink = 0.6 oz pur e alcohol) rare Comments No Sex and Gender Information Value Date Recorded Sex Assigned at Female 05/27/2020 7:00 AM COMPRESSED GAS TESTER Legal Sex Female 6:00 AM COMPRESSED GAS TESTER Gender Identity Female 05/27/2020 7:00 AM COMPRESSED GAS TESTER Sexual Orientation Straight 03/06/2023 11 :11 AM CDT 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 file Not on file Not on file documented as of this encounter Plan of Treatment Upcoming Encounters Date Type Department Care Team (Late st Contact Info) Description 03/03/2025 10:40 AM CDT Office Visit [facility] - Hematology/Oncology [address] [place] [address] Ariella Lee MD [address] [address] 08/11/2025 10:00 AM COMPRESSED GAS TESTER Appointment [facility] [address] [place] [address] 09/16/2025 11:00 AM CDT Appointment [facility] Pulmonology [address] [place] [address] 09/17/2025 10:30 AM CDT Office Visit [facility] Pulmonology [address] [facility] [address] [place] [address] [place] [address] [facility] [address] [place], [place] [id number] documented as of this encounter Visit Diagnoses Not on filedocumented in this encounter Care Teams Chief Resource Officer Relationship Specialty [place] [address] [facility] [address] [place] [address] PCP - General 07/10/08 11/12/20 [place] [address] [place] [address] PCP - Attributed-MSSP 11/10/18 09/09/20 Aditi Leon, CHIROPRACTIC PRACTICE MANAGER-DIE CUTTER [address] [place] [address] PCP - Attributed-MSSP 09/10/20 07/01/21 Kvng Wray MD 4938 [place] [phone] PCP - General 11/13/20 09/12/23 Emilee Lehman, CHIROPRACTIC PRACTICE MANAGER-DIE CUTTER [address] [facility] [address] [place], [place] [id number] PCP - General 09/13/23 [place] [address] [place] [address] Pulmonary Disease 01/10/11 [place] [address] [place] [address] Ophthalmology 08/09/12 [place] [address] [place] [address] Otolaryngology 02/03/14 [place] [address] [place] [address] Gastroenterology 02/03/14 [place] [address] [place] [address] Hand Surgery 02/03/14 [place] [address] [place] [address] Hematology 03/09/16 08/23/18 [place] [address] [place] [address] Hematology and Oncology 03/08/1708/23 [place] [address] [place] [address] Hematology and Oncology 08/24/18 [place] [address] [place] [address] General Surgery 02/18/19 [place] [address] [place] [id number] Rheumatology 05/28/20 Ariella Lee MD 36[address] [facility] 3 [place] [address] Hematology and Oncology 03/04/24 documented as of this encounter
--- OUTSIDE RECORDS SUMMARY | 2025-01-25 15:40 | XMS_ITS | Encounter Summary ---
Author Organization [facility] Address [address] [facility] [place] [address] Care Team Providers Care Burnisher And Bumper Name Role Phone Zulay Carter MD Primary Care Provider [phone] Wes Frazier MD Unavailable [phone] Cielo Connell MD Unavailable [phone] Emile Carias MD Unavailable [phone] Last Paul MD Unavailable [phone] Martha Ziegler MD Unavailable [phone] Vinnie Gomez MD Unavailable Mi Bejarano MD Unavailable Unavailable Yakelin Kelley MD Unavailable Zulay Carter MD Unavailable [phone] Lisa Prado MD Unavailable [phone] Tobi Crews MD Unavailable Aditi Leon SAFETY MANAGER-LEAD QUALITY CONTROL TECHNICIAN Unavailable + [phone] Kvng Wray MD Primary Care Provider + Emilee Lehman SAFETY MANAGER-LEAD QUALITY CONTROL TECHNICIAN Primary Care Provider Ariella Lee MD Unavailable [phone] Reason for Visit * Reason Onset Date Comments MEDICATION REFILL 03/13/2012 Encounter Details Date Type Department Care Team (Latest Contact Info) Description 03/13/2012 Refill TEST MEDICATION REFILL Social History Tobacco Use Types Packs/Day Years Used Date Smoking Tobacco: Former Cigarettes 1 19 0 11/25/1973 - 11/25/1992 Smokeless Tobacco: Never Alcohol Use Standard Drinks/Week Comments Yes 0 (1 standard drink = 0.6 oz pur e alcohol) rare Comments No Sex and Gender Information Value Date Recorded Sex Assigned at Female 05/27/2020 7:00 AM MOLDER SWEEP Legal Sex Female 6:00 AM MOLDER SWEEP Gender Identity Female 05/27/2020 7:00 AM MOLDER SWEEP Sexual Orientation Straight 03/06/2023 11 :11 AM CDT 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 on file Not on file Not on file documented as of this encounter Plan of Treatment Upcoming Encounters Date Type Department Care Team (Late st Contact Info) Description 03/03/2025 10:40 AM CDT Office Visit [facility] - Hematology/Oncology [address] [place] [address] Ariella Lee MD [address] [address] 08/11/2025 10:00 AM MOLDER SWEEP Appointment [facility] [address] [place] [address] 09/16/2025 11:00 AM CDT Appointment [facility] Pulmonology [address] [place] [address] 09/17/2025 10:30 AM CDT Office Visit [facility] Pulmonology [address] [facility] [address] [place] [address] [place] [address] [facility] [address] [place], [place] [id number] documented as of this encounter Visit Diagnoses Not on filedocumented in this encounter Care Teams Burnisher And Bumper Relationship Specialty [place] [address] [facility] [address] [place] [address] PCP - General 07/10/08 11/12/20 [place] [address] [facility] [address] [place] [address] PCP - Attributed-MSSP 11/10/18 09/09/20 Aditi Leon, SAFETY MANAGER-LEAD QUALITY CONTROL TECHNICIAN [address] [place] [address] PCP - Attributed-MSSP 09/10/20 07/01/21 Kvng rWay MD 4938 [place] [phone] PCP - General 11/13/20 09/12/23 Emilee Lehman, SAFETY MANAGER-LEAD QUALITY CONTROL TECHNICIAN [address] [facility] [address] [place], [place] [phone] PCP - General 09/13/23 [place] [address] [facility] [address] [place] [address] Pulmonary Disease 01/10/11 [place] [address] [facility] [address] [place] [address] Ophthalmology 08/09/12 [place] [address] [facility] [address] [place] [address] Otolaryngology 02/03/14 [place] [address] [place] [address] Gastroenterology 02/03/14 [place] [address] [place] [address] Hand Surgery 02/03/14 [place] [address] [place] [address] Hematology 03/09/16 08/23/18 [place] [address] [place] [address] Hematology and Oncology 03/08/1708/23 [place] [address] [place] [address] Hematology and Oncology 08/24/18 [place] [address] [place] [address] General Surgery 02/18/19 [place] [address] [place] [address] Rheumatology 05/28/20 Ariella Lee MD 3665 [facility] 3 [place] [address] Hematology and Oncology 03/04/24 documented as of this encounter
--- OUTSIDE RECORDS SUMMARY | 2025-01-25 15:40 | XMS_ITS | Encounter Summary ---
Author Organization [facility] Address [address] [place] [address] Care Team Providers Care Brush Filler Hand Name Role Phone Emilee Lehman APRN Primary Care Provider [phone] Zac[place] Scott MD Unavailable [phone] Encounter Details Date Type Department Care Team (Late st Contact Info) Description 06/29/2023 [employer] Message Enc [facility] Medical [facility] Family & Internal Medicine [facility] [address] [place] [address] Emilee Lehman APRN [id number] [place] [address] [place] Prior Approval Expiring Social History Tobacco Use Types Packs/Day Years [...] Sex Assigned at Female 06/25/2024 11:30 AM AUTOMOBILE BODY WORKER Legal Sex Female 10:25 AM CDT Gender Identity Female 10/22/2021 9:50 AM CDT Sexual Orientation Not on file documented as of this encounter Functional Status * RETIRED Are you deaf or do you have serious difficulty hearing Answer Date of Assessment Author Status No 06/15/2022 7:00 PM AUTOMOBILE BODY WORKER Activ e * RETIRED Are you blind or do you have serious difficulty seeing, even when wearing glasses? Answer Date of Assessment Author Status No 06/15/2022 7:00 PM AUTOMOBILE BODY WORKER Activ e * Do you have serious [...] 7:00 PM Eufemia Lozano RN Active * Over the past 2 weeks, how often have you been bothered by any of the following problems? Question Answer Date of Assessment Author Status Little interest or pleasure in doing things Not at all 06/30/2023 3:46 PM Raisa Jimenez MA Active Feeling down, depressed, or hopeless Not at all 06/30/2023 3:46 PM Raisa Jimenez MA Activ e Patient Health Questionnaire-2 Score 0 06/30/2023 3:46 PM Raisa Jimenez MA Active * If you checked off any problems on this questionnaire so far, Question Answer Date of Assessment Author Status How difficult have these problems made it for you to do your work, take care of things at home, or get along with other people? Not difficult at all 06/30/2023 3:46 PM Raisa Jimenez MA Active documented as of this encounter Mental Status * Because of a physical, mental, or emotional condition, do you have serious difficulty concentrating, remembering, or making decisions? Answer Entry Date Author Status No 06/15/2022 7:00 PM AUTOMOBILE BODY WORKER Eufemia Jimenez RN Active documented in this encounter Progress Notes * Myranda Hunter MA - 06/29/2023 2:47 PM CST Can you start the PA for pt Lorena? MOBILE BODY WORKER documented in this encounter Plan of Treatment Upcoming Encounters Date Type Department Care Team (Late st Contact Info) Description 02/14/2025 11:20 AM CDT Office Visit [facility] Family & Internal Medicine - [place] [address] [place] [address] Emilee Lehman, STRUCTURAL STEEL WORKER APPRENTICE [address] [address] 03/28/2025 10:28 AM CDT Hospital Encounter [facility] [address] [place] [address] Rodrigo Lomeli MD [address] [place] [address] 03/28/2025 10:28 AM CDT - 03/28/2025 10:50 AM CDT Surgery [facility] [address] [place] [address] Rodrigo Lomeli MD [address] [place] [address] EGD 11/14/2025 10:20 AM CDT Office Visit [facility] Multispecialty Care - [facility] [address] [facility], [address] [place] [address] Cheryl Hancock MD 3 [place] [address] Scheduled Procedures Name Priority Associated Diagnoses Date/Ti [...] 11:48 AM CDT) Genia Atkins, PharmD Note: Hypertension: Patient will monitor B/P [...] < 7 Result Component 8(08/09/2024 12:00 AM AUTOMOBILE BODY WORKER) Genia Atkins, KayaD documented as of this encounter Visit Diagnoses Not on filedocumented in this encounter Additional Health Concerns Infection Onset Date Last Indicated Resolved Time MRSA Comment:02/17/21 +MRSA Nasal 06/09/22 negative nares (JK) 02/18/2021 02/18/2021 COVID-19 Rule Out 06/30/2023 06/30/2023 06/30/2023 4:38 PM AUTOMOBILE BODY WORKER Influenza - Seasonal 06/30/2023 06/30/2023 024 12:32 AM AUTOMOBILE BODY WORKER COVID-19 Rule Out 11/21/2023 11/21/2023 11/21/2023 12:22 PM CDT Influenza - Seasonal 11/21/2023 11/21/2023 024 12:33 AM CDT COVID-19 Rule Out 07/17/2024 07/17/2024 07/17/2024 1:58 PM AUTOMOBILE BODY WORKER Influenza - Seasonal 07/17/2024 07/17/2024 025 12:32 AM AUTOMOBILE BODY WORKER Assessment Noted Time PHQ-9 Depression Total Score: 2 08/04/19 23 10:35 AM AUTOMOBILE BODY WORKER documented as of this encounter Care Teams Brush Filler Hand Relationship Specialty Start Date End Date Emilee Lehman APRN [address] [place] [address] PCP - General NURSE PRACTITIONER 08/04/22 [place] [address] [facility] [address] [place] [address] Consulting Physician CARDIOVASCULAR DISEASE 11/20/24 documented as of this encounter
--- OUTSIDE RECORDS SUMMARY | 2025-01-25 15:40 | XMS_ITS | Encounter Summary ---
Author Organization [facility] Address [address] [place] [address] Care Team Providers Care Plush Finisher Name Role Phone Kvng Wray MD Primary Care Provider U Emilee Daley APRN Primary Care Provider [phone] Genia Cortes PharmD Unavailable [phone] Zacarias Scott MD Unavailable [phone] Encounter Details Date Type Department Care Team (Late st Contact Info) Description 03/23/[address] [facility] Family & Internal Medicine [address] [address] Kvng Wray MD Social History Tobacco Use Types Packs/Day Years [...] Sex Assigned at Female 06/25/2024 11:30 AM PRINCIPAL QUALITY ENGINEER Legal Sex Female 10:25 AM CDT Gender Identity Female 10/22/2021 9:50 AM CDT Sexual Orientation Not on file COVID-19 Exposure Response Date Recorded In the last 10 days, have yo u been in contact with someone who was confirmed or suspected to have Coronavirus/COVID-19? No / Unsure 03/24/2022 3:21 PM CDT documented as of this encounter Plan of Treatment Upcoming Encounters Date Type Department Care Team (Late st Contact Info) Description 02/14/2025 11:20 AM CDT Office Visit [facility] Family & Internal Medicine - [place] [address] [place] [phone] Emilee Lehman, EXECUTIVE PRODUCER PROMOS [address] [address] 03/28/2025 10:28 AM CDT Hospital Encounter [facility] [address] [place] [address] Rodrigo Lomeli MD [address] [place] [address] 03/28/2025 10:28 AM CDT - 03/28/2025 10:50 AM CDT Surgery [facility] [address] [place] [address] Rodrigo Lomeli MD [address] [place] [address] EGD 11/14/2025 10:20 AM CDT Office Visit [facility] Multispecialty Care - [address], [address] [place] [phone] Cheryl Hancock MD [address] [place] [address] Scheduled Procedures Name Priority Associated Diagnoses Date/Ti me EGD Gastroesophageal reflux disease, unspecified whether esophagitis present HH (hiatus hernia) RUQ pain 03/28/2025 10:28 AM CDT documented as of this encounter Visit Diagnoses Diagnosis 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 Gastroesophageal reflux disease, unspecified whether esophagitis present HH (hiatus hernia) Diaphragmatic hernia without mention of obstruction or gangrene RUQ pain Abdominal pain, right upper quadrant documented in this encounter Additional Health Concerns Infection Onset Date Last Indicated Resolved Time MRSA Comment:02/17/21 +MRSA Nasal 06/09/22 negative nares (JK) 02/18/2021 02/18/2021 COVID-19 Rule Out 10/14/2022 10/14/2022 10/14/2022 3:19 PM CDT Influenza - Seasonal 10/14/2022 10/14/2022 023 12:32 AM CDT COVID-19 Rule Out 06/02/2023 06/02/2023 06/02/2023 10:09 AM PRINCIPAL QUALITY ENGINEER Influenza - Seasonal 06/02/2023 06/02/2023 024 12:32 AM PRINCIPAL QUALITY ENGINEER COVID-19 Rule Out 06/30/2023 06/30/2023 06/30/2023 4:38 PM PRINCIPAL QUALITY ENGINEER Influenza - Seasonal 06/30/2023 06/30/2023 024 12:32 AM PRINCIPAL QUALITY ENGINEER COVID-19 Rule Out 11/21/2023 11/21/2023 11/21/2023 12:22 PM CDT Influenza - Seasonal 11/21/2023 11/21/2023 024 12:33 AM CDT COVID-19 Rule Out 07/17/2024 07/17/2024 07/17/2024 1:58 PM PRINCIPAL QUALITY ENGINEER Influenza - Seasonal 07/17/2024 07/17/2024 025 12:32 AM PRINCIPAL QUALITY ENGINEER Assessment Noted Time PHQ-9 Depression Total Score: 1 02/17/20 10:04 AM CDT documented as of this encounter Care Teams Plush Finisher Relationship Specialty Start Date End Date Kvng Wray MD PCP - General INTERNAL MEDICINE 10/26/20 08/03/22 Emilee Lehman APRN [address] [place] [address] PCP - General NURSE PRACTITIONER 08/04/22 Genia Cortes, PharmD [address] [place] [address] Clerical Assigner (Ambulatory) Pharmacist 01/02/23 02/26/23 [place] [address] [place] [address] Consulting Physician CARDIOVASCULAR DISEASE 11/20/24 documented as of this encounter
--- OUTSIDE RECORDS SUMMARY | 2025-01-25 15:40 | XMS_ITS | Encounter Summary ---
Author Organization [facility] Address [facility] [place] [address] Care Team Providers Care Executive Advisor Name Role Phone Kvng Wray MD Primary Care Provider U Emilee Daley APRN Primary Care Provider [phone] Genia Cortes PharmD Unavailable [phone] Zacarias Scott MD Unavailable [phone] Encounter Details Date Type Department Care Team (Late st Contact Info) Description 03/07/2021 [employer] Message Enc [facility] Medical Group Family & Internal Medicine [address] [address] Kvng Wray MD RE: Question Social History Tobacco Use Types Packs/Day Years [...] Sex Assigned at Female 06/25/2024 11:30 AM AQUACULTURIST Legal Sex Female 10:25 AM CDT Gender Identity Female 10/22/2021 9:50 AM CDT Sexual Orientation Not on file COVID-19 Exposure Response Date Recorded In the last month, have you been in contact with someone who was confirmed or suspected to have Coronavirus / COVID-19? No / Unsure 02/24/2021 7:44 AM CDT documented as of this encounter Progress Notes * Jami Medina RN - 03/08/2021 8:17 AM CDT Will route to MD documented in this encounter Plan of Treatment Upcoming Encounters Date Type Department Care Team (Late st Contact Info) Description 02/14/2025 11:20 AM CDT Office Visit [facility] Family & Internal Medicine [facility] [id number] [place] [phone] Emilee Lehman, SOLID CENTER WINDER [address] [place] [address] [address] 03/28/2025 10:28 AM CDT Hospital Encounter [facility] [address] [place] [address] Rodrigo Lomeli MD [address] [place] [address] 03/28/2025 10:28 AM CDT - 03/28/2025 10:50 AM CDT Surgery [facility] [address] [place] [address] Rodrigo Lomeli MD [address] [place] [address] EGD 11/14/2025 10:20 AM CDT Office Visit [facility] Multispecialty Care - [facility] [address] [facility], [address] [place] [phone] Cheryl Hancock MD 3 [place] [address] Scheduled Procedures Name Priority Associated Diagnoses Date/Ti [...] Rule Out 06/02/2023 06/02/2023 06/02/2023 10:09 AM AQUACULTURIST Influenza - Seasonal 06/02/2023 06/02/2023 024 12:32 AM AQUACULTURIST COVID-19 Rule Out 06/30/2023 06/30/2023 06/30/2023 4:38 PM AQUACULTURIST Influenza - Seasonal 06/30/2023 06/30/2023 024 12:32 AM AQUACULTURIST COVID-19 Rule Out 11/21/2023 11/21/2023 11/21/2023 12:22 PM CDT Influenza - Seasonal 11/21/2023 11/21/2023 024 12:33 AM CDT COVID-19 Rule Out 07/17/2024 07/17/2024 07/17/2024 1:58 PM AQUACULTURIST Influenza - Seasonal 07/17/2024 07/17/2024 025 12:32 AM AQUACULTURIST Assessment Noted Time PHQ-9 Depression Total Score: 1 02/17/20 10:04 AM CDT documented as of this encounter Care Teams Executive Advisor Relationship Specialty Start Date End Date Kvng Wray MD PCP - General INTERNAL MEDICINE 10/26/20 08/03/22 Emilee Lehman APRN [address] [place] [address] PCP - General NURSE PRACTITIONER 08/04/22 Genia Cortes, PharmD [address] [place] [address] Decal Maker (Ambulatory) Pharmacist 01/02/23 02/26/23 [place] [address] [place] [address] Consulting Physician CARDIOVASCULAR DISEASE 11/20/24 documented as of this encounter
--- OUTSIDE RECORDS SUMMARY | 2025-01-25 15:40 | XMS_ITS | Encounter Summary ---
Author Organization [facility] Address [address] [facility] [place] [address] Care Team Providers Care Fast Food Fry Cook Name Role Phone Zulay Carter MD Primary Care Provider [phone] Wes Frazier MD Unavailable [phone] Cielo Connell MD Unavailable [phone] Emile Carias MD Unavailable [phone] Last Paul MD Unavailable [phone] Martha Ziegler MD Unavailable [phone] Vinnie Gomez MD Unavailable Mi Bejarano MD Unavailable Unavailable Yakelin Kelley MD Unavailable Zulay Carter MD Unavailable [phone] Lisa Prado MD Unavailable [phone] Tobi Crews MD Unavailable Aditi Leon DIRECTOR INDUSTRIAL RELATIONS-CONSUMER RELATIONS COMPLAINT CLERK Unavailable + [phone] Kvng Wray MD Primary Care Provider + Emilee Lehman DIRECTOR INDUSTRIAL RELATIONS-CONSUMER RELATIONS COMPLAINT CLERK Primary Care Provider Ariella Lee MD Unavailable [phone] Reason for Visit * Reason Onset Date Comments MEDICATION REFILL 06/21/2013 Encounter Details Date Type Department Care Team (Latest Contact Info) Description 06/21/2013 Refill TEST MEDICATION REFILL Social History Tobacco Use Types Packs/Day Years Used Date Smoking Tobacco: Former Cigarettes 1 19 0 11/25/1973 - 11/25/1992 Smokeless Tobacco: Never Alcohol Use Standard Drinks/Week Comments No 0 (1 standard drink = 0.6 oz pur e alcohol) rare Comments No Sex and Gender Information Value Date Recorded Sex Assigned at Female 05/27/2020 7:00 AM SURVEILLANCE SPECIALIST Legal Sex Female 6:00 AM SURVEILLANCE SPECIALIST Gender Identity Female 05/27/2020 7:00 AM SURVEILLANCE SPECIALIST Sexual Orientation Straight 03/06/2023 11 :11 AM CDT 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 Not on file Not on file documented as of this encounter Plan of Treatment Upcoming Encounters Date Type Department Care Team (Late st Contact Info) Description 03/03/2025 10:40 AM CDT Office Visit [facility] - Hematology/Oncology [address] [place] [address] Ariella Lee MD [address] [address] 08/11/2025 10:00 AM SURVEILLANCE SPECIALIST Appointment [facility] [address] [place] [address] 09/16/2025 11:00 AM CDT Appointment [facility] Pulmonology [address] [place] [address] 09/17/2025 10:30 AM CDT Office Visit [facility] Pulmonology [address] [facility] [address] [place] [address] [place] [address] [facility] [address] [place], [place] [id number] documented as of this encounter Visit Diagnoses Not on filedocumented in this encounter Care Teams Fast Food Fry Cook Relationship Specialty [place] [address] [facility] [address] [place] [address] PCP - General 07/10/08 11/12/20 [place] [address] [place] [address] PCP - Attributed-MSSP 11/10/18 09/09/20 Aditi Leon, DIRECTOR INDUSTRIAL RELATIONS-CONSUMER RELATIONS COMPLAINT CLERK [address] [place] [address] [place] [address] PCP - Attributed-MSSP 09/10/20 07/01/21 Kvng Wray MD [address] [place] [phone] PCP - General 11/13/20 09/12/23 Emilee Lehman, DIRECTOR INDUSTRIAL RELATIONS-CONSUMER RELATIONS COMPLAINT CLERK [address] [facility] [address] [place], [place] [id number] PCP - General 09/13/23 [place] [address] [place] [address] Pulmonary Disease 01/10/11 [place] [address] [place] [address] Ophthalmology 08/09/12 [place] [address] [place] [address] Otolaryngology 02/03/14 [place] [address] [place] [address] Gastroenterology 02/03/14 [place] [address] [place] [address] Hand Surgery 02/03/14 [place] [address] [place] [address] Hematology 03/09/16 08/23/18 [place] [address] [place] [address] Hematology and Oncology 03/08/1708/23 [place] [address] [place] [address] Hematology and Oncology 08/24/18 [place] [address] [place] [address] General Surgery 02/18/19 [place] [address] [place] [id number] Rheumatology 05/28/20 Ariella Lee MD [address] [facility] 3 [place] [address] Hematology and Oncology 03/04/24 documented as of this encounter
--- OUTSIDE RECORDS SUMMARY | 2025-01-25 15:40 | XMS_ITS | Encounter Summary ---
Author Organization [facility] Address [facility] [place] [address] Care Team Providers Care Jack Spooler Tender Name Role Phone Kvng Wray MD Primary Care Provider U Emilee Daley APRN Primary Care Provider [phone] Genia Cortes PharmD Unavailable [phone] Zacarias Scott MD Unavailable [phone] Encounter Details Date Type Department Care Team (Late st Contact Info) Description 01/20/2021 studdex Message Enc [facility] Family & Internal Medicine [address] [address] An[facility]bal [facility] Provider RE:n/v Social History Tobacco Use Types Packs/Day Years [...] Sex Assigned at Female 06/25/2024 11:30 AM ICE CREAM CHEF Legal Sex Female 10:25 AM CDT Gender [...] Description 02/14/2025 11:20 AM CDT Office Visit [facility] Family & Internal Medicine [facility] [place] [address] [place] [address] Emilee Lehman, MIQUEL [address] [phone] 03/28/2025 10:28 AM CDT Hospital Encounter [facility] [address] [place] [address] Rodrigo Lomeli MD [address] [place] [address] 03/28/2025 10:28 AM CDT - 03/28/2025 10:50 AM CDT Surgery [facility] [address] [place] [address] Rodrigo Lomeli MD [address] [place] [address] EGD 11/14/2025 10:20 AM CDT Office Visit [facility] Multispecialty Care - [address], [address] [place] [phone] Cheryl Hancock MD [address] [place] [address] Scheduled Procedures Name Priority Associated Diagnoses Date/Ti [...] Rule Out 06/02/2023 06/02/2023 06/02/2023 10:09 AM ICE CREAM CHEF Influenza - Seasonal 06/02/2023 06/02/2023 024 12:32 AM ICE CREAM CHEF COVID-19 Rule Out 06/30/2023 06/30/2023 06/30/2023 4:38 PM ICE CREAM CHEF Influenza - Seasonal 06/30/2023 06/30/2023 024 12:32 AM ICE CREAM CHEF COVID-19 Rule Out 11/21/2023 11/21/2023 11/21/2023 12:22 PM CDT Influenza - Seasonal 11/21/2023 11/21/2023 024 12:33 AM CDT COVID-19 Rule Out 07/17/2024 07/17/2024 07/17/2024 1:58 PM ICE CREAM CHEF Influenza - Seasonal 07/17/2024 07/17/2024 025 12:32 AM ICE CREAM CHEF documented as of this encounter Care Teams Jack Spooler Tender Relationship Specialty Start Date End Date Kvng Wray MD PCP - General INTERNAL MEDICINE 10/26/20 08/03/22 Emilee Lehman APRN [address] [address] PCP - General NURSE PRACTITIONER 08/04/22 Genia Cortes, PharmD [address] [place] [address] Adult Care Provider (Ambulatory) Pharmacist 01/02/23 02/26/23 [place] [address] [address] [address] Consulting Physician CARDIOVASCULAR DISEASE 11/20/24 documented as of this encounter
--- OUTSIDE RECORDS SUMMARY | 2025-01-25 15:40 | XMS_ITS | Encounter Summary ---
Author Organization [facility] Address [address] [facility] [place] [address] Care Team Providers Care Residential Property Consultant Name Role Phone Zulay Carter MD Primary Care Provider [phone] Wes Frazier MD Unavailable [phone] Cielo Connell MD Unavailable [phone] Emile Carias MD Unavailable [phone] Last Paul MD Unavailable [phone] Martha Ziegler MD Unavailable [phone] Vinnie Gomez MD Unavailable Mi Bejarano MD Unavailable Unavailable Yakelin Kelley MD Unavailable Zulay Carter MD Unavailable [phone] Lisa Prado MD Unavailable [phone] Tobi Crews MD Unavailable Aditi Leon BACK ROLLER-ADMINISTRATIVE PERSONAL ASSISTANT Unavailable + [phone] Kvng Wray MD Primary Care Provider + Emilee Lehman BACK ROLLER-ADMINISTRATIVE PERSONAL ASSISTANT Primary Care Provider Ariella Lee MD Unavailable [phone] Reason for Visit * Reason Onset Date Comments MEDICATION REFILL 07/20/2012 Encounter Details Date Type Department Care Team (Latest Contact Info) Description 07/20/2012 Refill TEST MEDICATION REFILL Social History Tobacco Use Types Packs/Day Years Used Date Smoking Tobacco: Former Cigarettes 1 19 0 11/25/1973 - 11/25/1992 Smokeless Tobacco: Never Alcohol Use Standard Drinks/Week Comments Yes 0 (1 standard drink = 0.6 oz pur e alcohol) rare Comments No Sex and Gender Information Value Date Recorded Sex Assigned at Female 05/27/2020 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 Legal Sex Female 6:00 AM PV INSTALLER TECH Gender Identity Female 05/27/2020 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 Sexual Orientation Straight 03/06/2023 11 :11 AM CDT 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 Not on file Not on file Not on file documented as of this encounter Plan of Treatment Upcoming Encounters Date Type Department Care Team (Late st Contact Info) Description 03/03/2025 10:40 AM CDT Office Visit [facility] Physician Group - Hematology/Oncology [address] [place] [address] Ariella Lee MD [address] [address] 08/11/2025 10:00 AM PV INSTALLER TECH Appointment [facility] [address] [place] [address] 09/16/2025 11:00 AM CDT Appointment [facility] Pulmonology [address] [place] [address] 09/17/2025 10:30 AM CDT Office Visit [facility] Pulmonology [address] [facility] [address] [place] [address] [place] [address] [facility] [address] [place], [place] [phone] documented as of this encounter Visit Diagnoses Not on filedocumented in this encounter Care Teams Residential Property Consultant Relationship Specialty [place] [address] [facility] [address] [place] [address] PCP - General 07/10/08 11/12/20 [place] [address] [facility] [place] [address] PCP - Attributed-MSSP 11/10/18 09/09/20 Aditi Leon, BACK ROLLER-ADMINISTRATIVE PERSONAL ASSISTANT [address] [place] [address] PCP - Attributed-MSSP 09/10/20 07/01/21 Kvng Wray MD [address] [place] [phone] PCP - General 11/13/20 09/12/23 Emilee Lehman, BACK ROLLER-ADMINISTRATIVE PERSONAL ASSISTANT [address] [facility] [address] [place], [place] [phone] PCP - General 09/13/23 [place] [address] [facility] [address] [place] [address] Pulmonary Disease 01/10/11 [place] [address] [facility] [place] [address] Ophthalmology 08/09/12 [place] [address] [facility] [address] [place] [address] Otolaryngology 02/03/14 [place] [address] [place] [address] Gastroenterology 02/03/14 [place] [address] [place] [address] Hand Surgery 02/03/14 [place] [address] [place] [address] Hematology 03/09/16 08/23/18 [place] [address] [place] [address] Hematology and Oncology 03/08/1708/23 [place] [address] [place] [address] Hematology and Oncology 08/24/18 [place] [address] [place] [address] General Surgery 02/18/19 [place] [address] [place] [id number] Rheumatology 05/28/20 Ariella Lee MD [address] [facility] [address] [place] [address] Hematology and Oncology 03/04/24 documented as of this encounter
--- OUTSIDE RECORDS SUMMARY | 2025-01-25 15:40 | XMS_ITS | Encounter Summary ---
Author Organization [facility] Address [facility] [place] [address] Care Team Providers Care Hospital Secretary Name Role Phone Kvng Wray MD Primary Care Provider Emilee Cuevas APRN Primary Care Provider [phone] Genia Cortes PharmD Unavailable [phone] Zacarias Scott MD Unavailable [phone] Encounter Details Date Type Department Care Team (Late st Contact Info) Description 01/20/2021 iWeebo Message Enc [facility] Medical Group Family & Internal Medicine [address] [address] Aníbal, [facility] Provider nausea and vomiting Social History Tobacco Use Types Packs/Day Years [...] Sex Assigned at Female 06/25/2024 11:30 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 Legal Sex Female 10:25 AM CDT Gender [...] Description 02/14/2025 11:20 AM CDT Office Visit [facility] Family & Internal Medicine - [place] [address] [place] [address] Emilee Lehman, MIQUEL [address] [facility] [address] [place], [place] [phone] 03/28/2025 10:28 AM CDT Hospital Encounter [facility] [address] [place] [address] Rodrigo Lomeli MD [address] [place] [address] 03/28/2025 10:28 AM CDT - 03/28/2025 10:50 AM CDT Surgery [facility] [address] [place] [address] Rodrigo Lomeli MD [address] [place] [address] EGD 11/14/2025 10:20 AM CDT Office Visit [facility] Multispecialty Care - [address], [address] [address] Cheryl Hancock MD [address] [place] [address] Scheduled Procedures Name Priority Associated Diagnoses Date/Ti [...] Rule Out 06/02/2023 06/02/2023 06/02/2023 10:09 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 Influenza - Seasonal 06/02/2023 06/02/2023 024 12:32 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 COVID-19 Rule Out 06/30/2023 06/30/2023 06/30/2023 4:38 PM ASSEMBLER TRUCK TRAILER Influenza - Seasonal 06/30/2023 06/30/2023 024 12:32 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 COVID-19 Rule Out 11/21/2023 11/21/2023 11/21/2023 12:22 PM CDT Influenza - Seasonal 11/21/2023 11/21/2023 024 12:33 AM CDT COVID-19 Rule Out 07/17/2024 07/17/2024 07/17/2024 1:58 PM ASSEMBLER TRUCK TRAILER Influenza - Seasonal 07/17/2024 07/17/2024 025 12:32 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 documented as of this encounter Care Teams Hospital Secretary Relationship Specialty Start Date End Date Kvng Wray MD PCP - General INTERNAL MEDICINE 10/26/20 08/03/22 Emilee Lehman APRN [address] [address] PCP - General NURSE PRACTITIONER 08/04/22 Genia Cortes, PharmD [address] [place] [address] [employer] (Ambulatory) Pharmacist 01/02/23 02/26/23 [place] [address] [address] [address] Consulting Physician CARDIOVASCULAR DISEASE 11/20/24 documented as of this encounter
--- OUTSIDE RECORDS SUMMARY | 2025-01-25 15:40 | XMS_ITS | Clinical Summary ---
Author Organization [facility] Address [address] [place] [address] Care Team Providers Care Superintendent Building Name Role Phone Wes Frazier MD Unavailable [phone] Cielo Connell MD Unavailable [phone] Emile Carias MD Unavailable [phone] Last Paul MD Unavailable [phone] Martha Ziegler MD Unavailable Yakelin Kelley MD Unavailable Lisa Prado MD Unavailable Tobi Crews MD Unavailable [facility] Lehman [facility] Primary Care Provider Ariella Lee MD Unavailable [phone] Source Comments [facility], formerly [facility],non-owned Affiliates and Associated Physician Practices is amultiple site organization consisting of ambulatory clinics and hospital sitesin [place], [place], [place] and [place]. This disclosure is being madepursuant to the Care Everywhere program and may not contain all information available regarding this patient. Last updated 18.[facility] Allergies Active Allergy Reactions Criticality Noted Date Comments Prochlorperazine Urticaria Medium 03/25/2016 Meperidine Nausea and/or Vomiting Low 03/08/2016 Hmg-Coa-R Inhibitors Other Low 03/17/2016 Other reaction(s): Other (See Comments) Joint pain. Can take pravastatin at a lower dose. Lisinopril Angioedema,Swelling High 11/23/2023 Facial and lip swelling Penicillins Rash Medium 07/10/2008 Pravastatin Sodium Myalgias Medium 07/20/2009 Medications * Be aware that medications may not be up to date on this document. Alwaysverify current medications with the patient. multivitamins (ONE A DAY) tablet Take 1 (one) tablet by mouth once daily Active acetaminophen (TYLENOL) 325 MG tablet Take 2 (two) tablets by mouth every 6 hours 016 Active aspirin (ASPIRIN) 81 MG tablet Take 1 (one) tablet by mouth once daily Active [place]-3 Fatty Acids (FISH OIL PO) Take by mouth 2 times daily Active ezetimibe (ZETIA) 10 MG tablet Take 1 tablet by mouth once daily 30 tablet 5 Active pantoprazole EC (PROTONIX) 40 MG tabletIndications:Bart roesophageal reflux disease without esophagitis TAKE 1 TABLET BY MOUTH TWICE DAILY 30-60 MINUTES BEFORE BREAKFAST AND SUPPER 180 tablet 3 Active fluticasone propionate (FLONASE) 50 MCG/ACT nasal spray SHAKE WELL AND SPRAY TWICE IN EACH NOSTRIL ONCE DAILY Active Denosumab (PROLIA SC)Indications:1ST INJECTION WAS 2020 Inject subcutaneously Every 180 days Reasons: 1ST INJECTION WAS 2020 Active pioglitazone (ACTOS) 15 MG tablet Take 1 (one) tablet by mouth once daily 90 tablet 2 Active rosuvastatin (CRESTOR) 10 MG tablet Take 1 (one) tablet by mouth as directed TAKES IT ON TUESDAYS AND FRIDAYS. Active coenzyme Q10 100 MG capsule Take 200 (two hundred) mg by mouth once daily Active albuterol HFA (Proventil; Ventolin; Proair) 108 (90 Base) MCG/ACT inhalerIndications:Chr onic obstructive pulmonary disease, unspecified COPD type (HCC),Dyspnea on exertion,Chronic rhinitis Inhale 2 (two) puffs by mouth every 6 hours as needed for Shortness of Breath, Wheezing or Cough 54 g 2 022 Active omeprazole (PriLOSEC) 20 MG capsule Take 1 (one) capsule by mouth once daily 022 Active Farxiga 10 MG tablet Take 1 (one) tablet by mouth once daily 023 Active famotidine (Pepcid) 40 MG tablet 024 Active Rybelsus 14 MG tablet Take 1 (one) tablet by mouth once daily 024 Active losartan - hydroCHLOROthiazide (Hyzaar) 50-12.5 MG tablet Take 1 (one) tablet by mouth once daily Active Anoro Ellipta 62.5-25 MCG/ACT inhalerIndications:Chr onic obstructive pulmonary disease, unspecified COPD type (HCC),Shortness of breath INHALE 1 PUFF BY MOUTH DAILY 180 Each 3 025 Active Active Problems Problem Noted Date Diagnosed Date Clostridium difficile infection 08/17/2024 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 Carpal tunnel syndrome 11/28/2023 Iron deficiency 04/03/2023 Chronic obstructive pulmonary disease 11/04/2022 03/06/2023 Biliary dyskinesia 05/02/2022 03/06/2023 Overview (03/06/2023): Added automatically from request for surgery [id number] Lumbosacral disc herniation 03/09/2022 Left sciatic nerve pain 02/01/2022 Age related osteoporosis 12/21/2020 BMI 29.0-29.9,adult 10/26/2020 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 08/19/2019 Gastroesophageal reflux disease with esophagitis 06/26/2018 Overview (08/20/2018): EGD 08/2018 Normal HH Placed on high dose reflux rx trial for supra eso reflux sx Atherosclerosis of aorta (CHRISTINA) 03/23/2018 Overview (05/06/2020): 02/12/20 ct chest abd/pelvis CT Chest/Abd 01/24/18 CT Chest/Abd 01/27/17 Multiple pulmonary nodules d etermined by computed tomography of lung 03/08/2017 Adrenal nodule (CHRISTINA) 03/31/2016 Vitamin D deficiency 10/17/2013 Low back pain 06/25/2009 Overview (01/28/2010): Hx of degen discs and had PT in the distant past 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 Elevated cholesterol 07/10/2008 Overview (07/30/2009): Pravachol- muscle aches 06/2009 Also tried Lipitor in the past. Adjustment reaction 09/17/2007 03/06/2023 Benign neoplasm of colon 10/20/2006 023 Osteoarthrosis 07/22/2005 03/06/2023 CAFL (chronic airflow limitation) (CHRISTINA) Overview (05/06/2020): 08/19/19 Zulay Carter MD Internal Medicine Malignant neoplasm of upper- outer quadrant of left breast in female, estrogen receptor negative (CHRISTINA) Cancer Staging:Clinical stage from 03/09/2016:Stage IIA(T2(2), N0, M0) - Signed by Ariella Lee MD on 03/04/2024 Overview (05/06/2020): 04/06/20 Aditi Leon APRN-NEWS PRODUCTION ASSISTANT Nurse Practitioner Resolved Problems Problem Noted Date Diagnosed Date Resolved Date Chest pain at rest 07/10/2019 0 Assessment & Plan (07/10/2019 4:02 PM VP BIOLOGY): # stress echo within 1 month # f/u within 2 months # cont aspirin Cough 06/26/2018 07/24/2018 Screen for colon cancer 06/26/201808/10 Overview (08/20/2018): Colon 2001 and 2018 neg Next colom 2028 Solitary pulmonary nodule on lung CT 09/08/2016 08/24/2018 Chronic rhinitis 01/07/2011 02/19/2018 Sleep disturbance 11/25/2010 02/19/2018 Malaise and fatigue 11/25/2010 02/20/20 18 Dyspnea on exertion 06/28/2010 02/20/20 18 Chest tightness 06/28/2010 02/19/2018 Overview (08/02/2010): Thallium stress negative 06/2010 at [place]. Dizziness 06/28/2010 02/19/2018 Sinus congestion 07/30/2009 02/19/2018 Overview (07/30/2009): Pt with congestion 4-5 times per year. Used to see ENT 15 years ago. Kidney stone 07/10/2008 03/30/2018 Allergic state 07/10/2008 02/19/2018 Overview (03/12/2015): Heel spur 07/10/2008 02/19/2018 Type 2 diabetes mellitus wit h ophthalmic manifestations 10/20/2006 04/27/2017 Acid reflux 08/24/2018 Immunizations Immunization Administration Dates Next Due INFLUENZA VACCINE, TRIV. (AF LURIA, FLUZONE TRIVALENT; 6MO+) (IIV3) 03/24/2015,03/26/2013 COVID MODERNA 12+ yr 50mcg/0.5mL 04/02/2024,03/12 COVID MODERNA BIVALENT 12Y+ 50MCG/0.5ML 12/27/2022,02/21/2022 Covid Moderna primary monova lent 12+ yr 0.5mL 02/21/2022 Covid Pfizer primary monoval ent 12+ yr 0.3mL Purple cap 08/17/2020,07/20/2020 FLU VACCINE TRI IIV3 SPLIT P F IM (FLUVIRIN) 04/12/2016 INFLUENZA VACCINE 04/17/2023, 3,02/16/2022,2018,04/12/2016 INFLUENZA VACCINE, ADJUVANTE D, QUADR. (FLUAD QUADRIVALENT; 65Y+) (AIIV4) 03/30/2023 INFLUENZA VACCINE, ADJUVANTE D, TRIV. (FLUAD TRIVALENT; 65Y+) (AIIV3) 04/02/2024 INFLUENZA VACCINE, HIGH-DOSE , QUADR. (FLUZONE HIGH-DOSE QUADRIVALENT; 65Y+), 0.7 ML (HD-IIV4) 02/16/2022,03/10/2021,03/18/2020,2017 INFLUENZA VACCINE, QUADR. (A FLURIA, FLUZONE QUADRIVALENT; 6MO+) (IIV4) 03/19/2019 INFLUENZA VACCINE, QUADR. (F LUZONE; FLULAVAL; FLUARIX; AFLURIA QUADRIVALENT; 6MO+), 0.5 ML (IIV4) 03/19/2019,03/08/2017,03/24/2015 PNEUMOCOCCAL PPSV23 09/21/2020,06/25/2013,2004 Pneumococcal Pcv13 Conj 03/30/2018 TD (ADULT), 5 LF TETANUS TOX OID, ADSORBED, PF 06/30/2004 TD (AGE 5-ADULT) 06/30/2004 Family History Medical History Relation Name Comments Cancer - Esophageal Father Diabetes Father Heart Disease Father Cancer - Breast Maternal Aunt Maternal gr eat aunt Arthritis Maternal Grandmother Diabetes Maternal Grandmother Osteoporosis Maternal Grandmother Heart Disease Mother Cancer - Uterine Other Paternal fi rst cousin Stroke Paternal Grandfather Diabetes Sister 1 Heart Disease Sister 1 Hypercholesterolemia Sister 1 Cancer - Thyroid Sister 2 Diabetes Sister 2 Hypercholesterolemia Sister 2 Osteoporosis Sister 2 Relation Name Status Comments Father cancer, heart d isease, Maternal Aunt Maternal Grandfather Maternal Grandmother arthrit is, Mother heart disease, Other Paternal Grandfather stroke Paternal Grandmother Sister 1 Alive DM, heart disea se, high chol, Sister 2 Alive Social History Tobacco Use Types Packs/Day Years Used Date Smoking Tobacco: Former Cigarettes 1 23 0 1970 - 11/25/1992 Passive Smoke Exposure: Past Smokeless Tobacco: Never Tobacco Cessation:Counseling Given: Not Answered Alcohol Use Standard Drinks/Week Comments No 0 (1 standard drink = 0.6 oz pur e alcohol) AUDIT-C Answer Date Recorded Q1: How often do you have a drink containing alcohol? Never 03/04/2024 Q2: How many drinks containi ng alcohol do you have on a typical day when you are drinking? Patient does not drink Q3: How often do you have si x or more drinks on one occasion? Never 03/04/2024 Overall Financial Resource Strain (CARDIA) Answe r Date Recorded How hard is it for you to pa y for the very basics like food, housing, medical care, and heating? Not hard at all 03/04/2024 PHQ-2 Answer Date Recorded Patient Health Questionnaire-2 Score 0 03/04/2024 [facility] - Occupational Stress Questionnaire Answer Date Recorded Do you feel stress - tense, restless, nervous, or anxious, or unable to sleep at night because your mind is troubled all the time - these days? Only a little 03/04/2024 Hunger Vital Sign Answer Date Recorded Within the past 12 months, y ou worried that your food would run out before you got the money to buy more. Never true 03/04/20 24 Within the past 12 months, t he food you bought just didn't last and you didn't have money to get more. Never true 03/04/2024 PRAPARE - Transportation Answer Date Re corded In the past 12 months, has l ack of transportation kept you from medical appointments or from getting medications? No 02/11 In the past 12 months, has l ack of transportation kept you from meetings, work, or from getting things needed for daily living? No 03/04/2024 Housing Stability Vital Sign Answer Lokesh e Recorded In the last 12 months, was t here a time when you were not able to pay the mortgage or rent on time? No 03/04/2024 In the last 12 months, how many places have you lived? 1 03/04/2024 In the last 12 months, was t here a time when you did not have a steady place to sleep or slept in a custodial (including now)? No 03/04/2024 Education Answer Date Recorded What is the highest level of school you have completed or the highest degree you have received? 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 Not on file Not on file Not on file Last Filed Vital Signs Vital Sign Reading Time Taken Comments Blood Pressure 132/72 09/18/2024 10:54 AM CDT Pulse 72 09/18/2024 10:54 AM CDT Temperature 36.4 C (97.5 F) 09/18/2024 10:54 AM CDT Respiratory Rate 18 09/18/2024 10:54 AM CDT Oxygen Saturation 99% 09/18/2024 10:54 AM CDT roomair Inhaled Oxygen Concentration 21% 09/05/2017 1 :42 PM CDT [facility] Weight 73.5 kg (162 lb) 09/18/2024 10:54 AM CDT Height 165.1 cm (5' 5) 09/18/2024 10:54 AM CDT Body Mass Index 26.96 09/18/2024 10:54 AM CDT Plan of Treatment Upcoming Encounters Date Type Department Care Team (Late st Contact Info) Description 03/03/2025 10:40 AM CDT Office Visit [facility] - Hematology/Oncology [address] [place] [address] Ariella Lee MD [address] [place] [address] 08/11/2025 10:00 AM VP [facility] Appointment [facility] [address] [place] [address] 09/16/2025 11:00 AM CDT Appointment [facility] Pulmonology [address] [place] [address] 09/17/2025 10:30 AM CDT Office Visit [facility] - Pulmonology [address] [place] [address] [place] [address] [address] [place] [address] Health Maintenance Due Date Last Done Comments COLOGUARD (AGES 45-75) - COLON CA SCREENING 1955 CT COLONOGRAPHY - COLON CA SCREENING 1955 FIT - COLON CA SCREENING 1955 FLEX SIG - COLON CA SCREENING 1955 MEDICARE AWV 12 MONTHS 1955 ZOSTER VACCINE (1 of 2) 2003 Respiratory Syncytial Virus (RSV) Vaccine Pt: or over 60 yrs (1 - Risk 60-74 years 1-dose series) 2013 DTAP/TDAP/TD VACCINES (3 - Td or Tdap) 06/30/2014 06/30/2004, 06/30/2004 DIABETES-FOOT EXAM WITH MONOFILAMENT 02/19/2020 02/18/2019, 02/18/2019, 10/28/2016, Additional history exists DIABETES RETINOPATHY SCREENING 04/20/2021 04/20/2020, 04/05/2019, 04/03/2019, Additional history exists BONE DENSITY TESTING 05/20/2023 05/20/2021, 02/22/2019, 11/08/2016, Additional history exists DEPRESSION SCREENING 06/12/2024 03/04/2024 DIABETES - URINE PROTEIN SCREENING 06/12/2024 03/02/2023, 09/29/2017, 11/30/2016, Additional history exists COVID-19 VACCINE ( season) 2024 04/02/2024, 03/30/2023, 12/27/2022, Additional history exists INFLUENZA VACCINE (#1) 2025 , 04/17/2023, 03/30/2023, Additional history exists DIABETES-HGB A1C 02/19/2025 08/19/2024, , 06/03/2024, Additional history exists DIABETES-SERUM CREATININE 08/17/20252024, 08/17/2024, 07/08/2024, Additional history exists MAMMOGRAM 08/08/2026 08/08/2024, 06/13, 07/04/2023, Additional history exists COLON MONITORING 08/20/2028 08/20/2018, 08/20/2018 COLONOSCOPY - COLON CA SCREENING 08/20/2028 08/20/2018, 08/20/2018, 06/12/2005 Colorectal Cancer Screening 08/20/2028 HEPATITIS C SCREENING Completed 03/31/2016 PNEUMOCOCCAL VACCINE 50+ Completed 021, 03/30/2018, 06/25/2013, Additional history exists HEPATITIS B VACCINE Aged Out No longe r eligible based on patient's age to complete this topic HIB VACCINE Aged Out No longer eligi ble based on patient's age to complete this topic HPV VACCINE Aged Out No longer eligi ble based on patient's age to complete this topic MENINGOCOCCAL (Group B) VACCINE SHARED DECISION-MAKING Aged Out No longer eligible based on patient's age to complete this topic MENINGOCOCCAL GROUPS A/C/Y/W VACCINE Aged Out No longer eligible based on patient's age to complete this topic Goals Goal Patient Goal Type Associated Problems Recent Progress Patient-Stated? Author Blood Pressure < 140/90 Blood Pressure 132/72(2024 10:54 AM CDT) No Mikaela Albarran APRN-CNP HEMOGLOBIN A1C < 7.0 Result Component 8.1( 0 8:38 AM CDT) No Mikaela Albarran APRN-CNP Procedures Procedure Name Priority Date/Time Associated Diagnosis Comments MAMMO BILAT SCREENING W HARLEY Routine 08/08/2024 10:44 AM [facility] Breast cancer screening by mammogram CREATININE - POCT INTERFACED Routine 02/28/2024 9:33 AM CDT HM DIABETES EYE EXAM Routine 04/20/2020 HEMOGLOBIN A1C W EAG Routine 04/09/2020 8:38 AM CDT Type 2 diabetes mellitus with right eye affected by mild nonproliferative retinopathy without macular edema, without long-term current use of insulin DEXA BONE DENSITY AXIAL SKELETON Routine 02/22/2019 Menopause ENDOSCOPY, COLON, SCREENING Routine 08/20/2018 10:40 AM CDT MICROALB/CREAT RATIO URINE RANDOM PANEL Routine 09/29/2017 7:49 AM CDT Type 2 diabetes mellitus without complication, unspecified whether 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 RECOMMENDATION: Screening mammography in one year, pending no interval breast concerns. Patient was notified of the results at the time of the exam and will see Dr. Amezquita in the breast clinic today. Patient will also receive the exam results by lay letter. OVERALL ASSESSMENT: BI-RADS CATEGORY 2: BENIGN. Report dictated by Nader Osman M.D. (enrollment management vice president). I, Britta Lazar MD, FACR have personally reviewed and interpreted this examination/study. > Interpreting Provider: Britta Lazar MD, FACR on 08/08/2024 3:36 PM Narrative 08/08/2024 3:36 PM [facility] EXAMINATIONS: BILATERAL DIGITAL SCREENING MAMMOGRAM AND BILATERAL BREAST TOMOSYNTHESIS LOCATION: [facility] EXAM DATE: 08/08/2024 HISTORY: Screening. Personal history of left-sided breast malignancy status post breast conservation therapy 07/12/2016. Family history of breast cancer in maternal aunt. COMPARISON: Comparison is made to prior mammograms back to 2016. TECHNIQUE: Tomosynthesis (3D) and reconstructed synthetic 2-D images acquired and reviewed in the bilateral craniocaudal and mediolateral oblique projections. A total of 5 images obtained. Scar marker placed on the left breast. Transpara AI was utilized in the interpretation. BREAST PARENCHYMAL COMPOSITION: Category B: There are scattered areas of fibroglandular density. FINDINGS: There are no suspicious findings or evidence of malignancy on mammography. Changes of left breast conservation surgery. No change from prior. us Janae Amezquita MD MAMMO ORDERABLES Final Resu lt * (ABNORMAL) CREATININE - POCT INTERFACED (02/28/2024 9:33 AM CDT) Creatinine POCT 0.79 0.30 - 1.30 mg/dL 02/28/2024 9:47 AM CDT [facility] eGFR 80(L) >=90 mL/min/1.7 3 m2 02/28/2024 9:47 AM CDT [facility] Blood BLOOD SPECIMEN / Unknown 02/28/2024 9:33 AM CDT 02/28/2024 9:47 AM CDT us Becca Johnson APRN-NEWS PRODUCTION ASSISTANT LAB - POINT OF CARE ORDERAB LES Final Result [facility] [address] [place] [id number], [facility] [phone] * DIABETES EYE EXAM (04/20/2020) us Scanned Document HEALTH MAINTENANCE Final Result * (ABNORMAL) HEMOGLOBIN A1C W EAG (04/09/2020 8:38 AM CDT) Hemoglobin A1c 8.1(H) <5.7 % of total Hgb [facility] Comment: For someone without known diabetes, a hemoglobin A1c value of 6.5% or greater indicates that they may have diabetes and this should be confirmed with a follow-up test. For someone with known diabetes, a value <7% indicates that their diabetes is well controlled and a value greater than or equal to 7% indicates suboptimal control. A1c targets should be individualized based on duration of diabetes, age, comorbid conditions, and other considerations. Currently, no consensus exists regarding use of hemoglobin A1c for diagnosis of diabetes for children. Estimated Average Glucose 186 (calc) [facility] Estimated Average Glucose 10.3 (calc) [facility] Comment: REPORT COMMENT: FASTING:YES Test Performed at: [facility] [address] [place] [address] EJ RODRIGUEZ,DO,MPH Blood BLOOD SPECIMEN / Unknown 04/09/2020 8:38 AM CDT 04/09/2020 8:40 AM CDT us Aditi Leon MOTHER BABY RN-NEWS PRODUCTION ASSISTANT LAB - CHEMISTRY ORDERABL ES Final Result [facility] [id number] [place] [address] * DEXA BONE DENSITY AXIAL SKELETON (02/22/2019) Anatomical Region Laterality Modality Other us Zulay Carter MD DEXA ORDERABLES Final Result * ENDOSCOPY, COLON, SCREENING (08/20/2018 10:40 AM CDT) Report Endoscopy POC _ Patient Name: Ian Mcgarry Procedure Date: 08/20/2018 10:40 AM Date of : 1955 Admit Type: Outpatient Age: 63 Gender: Female Attending MD: Jus Patel MD _ Procedure: Colonoscopy Indications: Screening for colorectal malignant neoplasm, Last colonoscopy: 2001 Providers: Jus Patel MD (Doctor) Referring MD: Zulay Carter MD (Referring MD) Medicines: Monitored Anesthesia Care Complications: No immediate complications. _ Procedure: Pre-Anesthesia Assessment: - Prior to the procedure, a History and Physical was performed, and patient medications and allergies were reviewed. The patient is competent. The risks and benefits of the procedure and the sedation options and risks were discussed with the patient. All questions were answered and informed consent was obtained. Patient identification and proposed procedure were verified by the physician in the pre-procedure area. Mental Status Examination: alert and oriented. Airway Examination: normal oropharyngeal airway and neck mobility. Respiratory Examination: clear to auscultation. CV Examination: normal. Prophylactic Antibiotics: The patient does not require prophylactic antibiotics. Prior Anticoagulants: The patient has taken no previous anticoagulant or antiplatelet agents. ASA Grade Assessment: II - A patient with mild systemic disease. After reviewing the risks and benefits, the patient was deemed in satisfactory condition to undergo the procedure. The anesthesia plan was to use monitored anesthesia care (MAC). Immediately prior to administration of medications, the patient was re-assessed for adequacy to receive sedatives. The heart rate, respiratory rate, oxygen saturations, blood pressure, adequacy of pulmonary ventilation, and response to care were monitored throughout the procedure. The physical status of the patient was re-assessed after the procedure. After I obtained informed consent, the scope was passed under direct vision. Throughout the procedure, the patient's blood pressure, pulse, and oxygen saturations were monitored continuously. The Colonoscope was introduced through the anus and advanced to the cecum, identified by appendiceal orifice and ileocecal valve. The colonoscopy was performed without difficulty. The patient tolerated the procedure well. The quality of the bowel preparation was excellent. Findings: The perianal and digital rectal examinations were normal. Pertinent negatives include no palpable rectal lesions. Non-bleeding internal hemorrhoids were found during retroflexion. The hemorrhoids were moderate. The colon (entire examined portion) appeared normal. _ Impression: - Non-bleeding internal hemorrhoids. - The entire examined colon is normal. - No specimens collected. Recommendation: - Repeat colonoscopy in 10 years for surveillance. - Return to my office PRN. - Return to primary care physician as previously scheduled. Procedure Code(s): --- Professional --- G0121, Colorectal cancer screening; colonoscopy on individual not meeting criteria for high risk --- Technical --- G0121, Colorectal cancer screening; colonoscopy on individual not meeting criteria for high risk Diagnosis Code(s): --- Professional --- Z12.11, Encounter for screening for malignant neoplasm of colon K64.8, Other hemorrhoids --- Technical --- Z12.11, Encounter for screening for malignant neoplasm of colon K64.8, Other hemorrhoids CPT copyright 2017 [employer]. All rights reserved. The codes documented in this report are preliminary and upon floor worker transfer bay review may be revised to meet current compliance requirements. Dr. Jus Patel MD ___ Jus Patel MD 08/20/2018 12:13:26 PM This report has been signed electronically. Number of Addenda: 0 Note Initiated On: 08/20/2018 10:40 AM [facility] 08/20/2018 10:4 0 AM CDT Jus Patel MD GI PROCEDURE ORDERABLES Robin nicolas Result - Final [facility] ISAI [place] [id number] * MICROALB/CREAT RATIO URINE RANDOM PANEL (09/29/2017 7:49 AM CDT) Creatinine Urine 80 mg/dL LAB [employer] BILL Microalbumin Urine <0.5 mg/dL [facility] INSURANCE BILL Microalbumin/Crea tinine Ratio <6 <30 mg/g [facility] INSURANCE BILL Comment:FASTING Urine URINE SPECIMEN OBTAINED BY CLEAN CATCH PROCEDURE / Unknown 09/29/2017 7:49 AM CDT 09/29/2017 Narrative Resulting Agency Comment [facility] [place] [place] [address] [facility] [address] Stevenson ALEX [phone] us Zulay Carter MD LAB - URINE CHEMISTRY ORDERABL ES Final Result Performing Organization Address [facility] de Phone Number [facility] INSURANCE BILL [address] [place] [address] * HEPATITIS B + C PANEL (03/31/2016 9:32 AM CDT) Hepatitis B Virus Surface Antigen Screen Negative Negative [facility] ([facility]) Hepatitis Be Virus Antigen Negative Negative [facility]) Hepatitis B Core Virus Antibody IgM Negative Negative [facility] Hepatitis B Core Virus Antibody Total Negative Negative [facility]) Hepatitis Be Virus Antibody Negative Negative [facility]) Hepatitis B Virus Surface Antibody Non Reactive [facility] Comment: Non Reactive: Inconsistent with immunity, less than 10 mIU/mL Reactive: Consistent with immunity, greater than 9.9 mIU/mL Hepatitis C Antibody <0.1 0.0 - 0.9 s/co ratio [facility]) 03/31/2016 9:32 AM CDT 03/31/2016 12:25 PM CDT Narrative [facility]) - 04/01/2016 2:12 PM CDT Performed at: [address] [place] [id number] Overlock Hemmer: Reji Jose PhD, Phone: [phone] us Mi Bejarano MD LAB - SEROLOGY ORDERABLES Final Result Performing Organization Address [facility] Co de Phone Number [facility] ([facility]) [address] [phone], [facility] from Last 3 Months or Most Recently Relevant to Health Maintenance Insurance MEDICARE [facility] Advance Directives Documents on File Type Date Recorded Patient Paperhanger And Painter Expl anation Adv Directive/Living Will/POA 07/10/2008 Care Teams Superintendent Building Relationship Specialty Start Date End Date Lehman Emilee Janet, MOTHER BABY RN-NEWS PRODUCTION ASSISTANT [address] [place] [address] PCP - General 09/13/23 [place] [address] [place] [address] Pulmonary Disease 01/10/11 [place] [address] [place] [address] Ophthalmology 08/09/12 [place] [address] [place] [address] Otolaryngology 02/03/14 [place] [address] [place] [address] Gastroenterology 02/03/14 [place] [address] [place] [address] Hand Surgery 02/03/14 [place] [address] [place] [address] Hematology and Oncology 08/24/18 [place] [address] [place] [address] General Surgery 02/18/19 [place] [address] [place] [id number] Rheumatology 05/28/20 Ariella Lee MD [address] [address] Hematology and Oncology 03/04/24
--- OUTSIDE RECORDS SUMMARY | 2025-01-25 15:40 | XMS_ITS | Encounter Summary ---
Author Organization [facility] Address [address] [place] [address] Care Team Providers Care Can Filling Room Sweeper Name Role Phone Zulay Carter MD Primary Care Provider [phone] Wes Frazier MD Unavailable [phone] Cielo Connell MD Unavailable [phone] Emile Carias MD Unavailable [phone] Last Paul MD Unavailable [phone] Martha Ziegler MD Unavailable [phone] Vinnie Gomez MD Unavailable Mi Bejarano MD Unavailable Unavailable Yakelin Kelley MD Unavailable Zulay Carter MD Unavailable [phone] Lisa Prado MD Unavailable [phone] Tobi Crews MD Unavailable Aditi Leon EFFICIENCY CLERK-LUMBER TYING MACHINE OPERATOR Unavailable + [phone] Kvng Wray MD Primary Care Provider + Emilee Lehman EFFICIENCY CLERK-LUMBER TYING MACHINE OPERATOR Primary Care Provider Ariella Lee MD Unavailable [phone] Reason for Visit * Reason Onset Date Comments MEDICATION REFILL 07/22/2013 Encounter Details Date Type Department Care Team (Latest Contact Info) Description 07/22/2013 Refill TEST MEDICATION REFILL Social History Tobacco Use Types Packs/Day Years Used Date Smoking Tobacco: Former Cigarettes 1 19 0 11/25/1973 - 11/25/1992 Smokeless Tobacco: Never Alcohol Use Standard Drinks/Week Comments No 0 (1 standard drink = 0.6 oz pur e alcohol) rare Comments No Sex and Gender Information Value Date Recorded Sex Assigned at Female 05/27/2020 7:00 AM CAN FILLING ROOM SWEEPER Legal Sex Female 6:00 AM CAN FILLING ROOM SWEEPER Gender Identity Female 05/27/2020 7:00 AM CAN FILLING ROOM SWEEPER Sexual Orientation Straight 03/06/2023 11 :11 AM CDT 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 Not on file Not on file documented as of this encounter Plan of Treatment Upcoming Encounters Date Type Department Care Team (Late st Contact Info) Description 03/03/2025 10:40 AM CDT Office Visit [facility] - Hematology/Oncology [address] [place] [address] Ariella Lee MD [address] [address] 08/11/2025 10:00 AM CAN FILLING ROOM SWEEPER Appointment [facility] [address] [place] [address] 09/16/2025 11:00 AM CDT Appointment [facility] Pulmonology [address] [place] [address] 09/17/2025 10:30 AM CDT Office Visit [facility] Pulmonology [address] [facility] [address] [place] [address] [place] [address] [facility] [address] [place], [place] [id number] documented as of this encounter Visit Diagnoses Not on filedocumented in this encounter Care Teams Can Filling Room Sweeper Relationship Specialty Start [place] [address] [facility] [address] [place] [address] PCP - General 07/10/08 11/12/20 [place] [address] [place] [address] PCP - Attributed-MSSP 11/10/18 09/09/20 Aditi Leon, EFFICIENCY CLERK-LUMBER TYING MACHINE OPERATOR [address] [place] [address] PCP - Attributed-MSSP 09/10/20 07/01/21 Kvng Wray MD [address]38 [place] [address] PCP - General 11/13/20 09/12/23 Emilee Lehman, EFFICIENCY CLERK-LUMBER TYING MACHINE OPERATOR [address] [facility] [address] [place], [place] [id number] PCP - General 09/13/23 [place] [address] [place] [address] Pulmonary Disease 01/10/11 [place] [address] [place] [address] Ophthalmology 08/09/12 [place] [address] [place] [address] Otolaryngology 02/03/14 [place] [address] [place] [address] Gastroenterology 02/03/14 [place] [address] [place] [address] Hand Surgery 02/03/14 [place] [address] [place] [address] Hematology 03/09/16 08/23/18 [place] [address] [place] [address] Hematology and Oncology 03/08/1708/23 [place] [address] [place] [address] Hematology and Oncology 08/24/18 [place] [address] [place] [address] General Surgery 02/18/19 [place] [address] [place] [address] Rheumatology 05/28/20 Ariella Lee MD 36[address] [facility] [address] [place] [address] Hematology and Oncology 03/04/24 documented as of this encounter
--- OUTSIDE RECORDS SUMMARY | 2025-01-25 15:40 | XMS_ITS | Encounter Summary ---
Author Organization [facility] Address [facility] [place] [address] Care Team Providers Care Circular Clerk Name Role Phone Knvg Wray MD Primary Care Provider U Emilee Daley APRN Primary Care Provider [phone] Genia Cortes PharmD Unavailable [phone] Zacarias Scott MD Unavailable [phone] Encounter Details Date Type Department Care Team (Late st Contact Info) Description 04/15/2021 MyChart Message Enc [facility] Family & Internal Medicine [address] [address] Kvng Wray MD RE: Other [...] Sex Assigned at Female 06/25/2024 11:30 AM SALES CONSULTANT Legal Sex Female 10:25 AM CDT Gender Identity Female 10/22/2021 9:50 AM CDT Sexual Orientation Not on file COVID-19 Exposure Response Date Recorded In the last month, have you been in contact with someone who was confirmed or suspected to have Coronavirus / COVID-19? Unable to assess 04/15/2021 12:24 PM CDT documented as of this encounter Plan of Treatment Upcoming Encounters Date Type Department Care Team (Late st Contact Info) Description 02/14/2025 11:20 AM CDT Office Visit [facility] Family & Internal Medicine - [place] [address] [place] [address] Emilee Lehman, MIQUEL [address] [address] 03/28/2025 10:28 AM CDT Hospital Encounter [facility] [address] [place] [address] Rodrigo Lomeli MD [address] [place] [address] 03/28/2025 10:28 AM CDT - 03/28/2025 10:50 AM CDT Surgery [facility] [address] [place] [address] Rodrigo Lomeli MD [address] [place] [address] EGD 11/14/2025 10:20 AM CDT Office Visit [facility] Multispecialty Care - [address], [address] [place] [address] Cheryl Hancock MD [address] [place] [address] [phone] (work) Scheduled Procedures Name Priority Associated Diagnoses Date/Ti [...] Rule Out 06/02/2023 06/02/2023 06/02/2023 10:09 AM SALES CONSULTANT Influenza - Seasonal 06/02/2023 06/02/2023 024 12:32 AM SALES CONSULTANT COVID-19 Rule Out 06/30/2023 06/30/2023 06/30/2023 4:38 PM SALES CONSULTANT Influenza - Seasonal 06/30/2023 06/30/2023 024 12:32 AM SALES CONSULTANT COVID-19 Rule Out 11/21/2023 11/21/2023 11/21/2023 12:22 PM CDT Influenza - Seasonal 11/21/2023 11/21/2023 024 12:33 AM CDT COVID-19 Rule Out 07/17/2024 07/17/2024 07/17/2024 1:58 PM SALES CONSULTANT Influenza - Seasonal 07/17/2024 07/17/2024 025 12:32 AM SALES CONSULTANT Assessment Noted Time PHQ-9 Depression Total Score: 1 02/17/20 21 10:04 AM CDT documented as of this encounter Care Teams Circular Clerk Relationship Specialty Start Date End Date Kvng Wray MD PCP - General INTERNAL MEDICINE 10/26/20 08/03/22 Emilee Lehman APRN [address] [place] [address] PCP - General NURSE PRACTITIONER 08/04/22 Genia Cortes, PharmD [address] [place] [address] Seafood Farmer (Ambulatory) Pharmacist 01/02/23 02/26/23 [place] [address] [address] [id number] Consulting Physician CARDIOVASCULAR DISEASE 11/20/24 documented as of this encounter
--- OUTSIDE RECORDS SUMMARY | 2025-01-25 15:40 | XMS_ITS | Encounter Summary ---
Author Organization [facility] Address [address] [facility] [address] Care Team Providers Care Resource Management Planner Name Role Phone Zulay Carter MD Primary Care Provider [phone] Wes Frazier MD Unavailable [phone] Cielo Connell MD Unavailable [phone] Emile Carias MD Unavailable [phone] Last Paul MD Unavailable [phone] Martha Ziegler MD Unavailable [phone] Vinnie Gomez MD Unavailable Mi Bejarano MD Unavailable Unavailable Yakelin Kelley MD Unavailable Zulay Carter MD Unavailable [phone] Lisa Prado MD Unavailable [phone] Tobi Crews MD Unavailable Aditi Leon PRODUCTION TRUCK DRIVER-GRADE AND CENTER MARKER Unavailable + [phone] Kvng Wray MD Primary Care Provider + Emilee Lehman PRODUCTION TRUCK DRIVER-GRADE AND CENTER MARKER Primary Care Provider Ariella Lee MD Unavailable [phone] Reason for Visit * Reason Onset Date Comments MEDICATION REFILL 05/18/2015 Encounter Details Date Type Department Care Team (Late Contact Info) Description 05/18/2015 Refill [facility] [address] [place] [address] MEDICATION REFILL Social History Tobacco Use Types Packs/Day Years Used Date Smoking Tobacco: Former Cigarettes 1 19 0 11/25/1973 - 11/25/1992 Smokeless Tobacco: Never Alcohol Use Standard Drinks/Week Comments No 0 (1 standard drink = 0.6 oz pur e alcohol) rare Comments No Sex and Gender Information Value Date Recorded Sex Assigned at Female 05/27/2020 7:00 AM TAILORING TEACHER Legal Sex Female 6:00 AM TAILORING TEACHER Gender Identity Female 05/27/2020 7:00 AM TAILORING TEACHER Sexual Orientation Straight 03/06/2023 11 :11 AM CDT 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 Not on file Not on file documented as of this encounter Plan of Treatment Upcoming Encounters Date Type Department Care Team (Late Contact Info) Description 03/03/2025 10:40 AM CDT Office Visit [facility] - Hematology/Oncology [address] [place] [address] Ariella Lee MD [address] [address] 08/11/2025 10:00 AM TAILORING TEACHER Appointment [facility] [address] [place] [address] 09/16/2025 11:00 AM CDT Appointment [facility] Pulmonology [address] [place] [address] 09/17/2025 10:30 AM CDT Office Visit [facility] Pulmonology [address] [facility] [address] [place] [address] [place] [address] [facility] [address] [place] [address] documented as of this encounter Goals Goal Patient Goal Type Associated Problems Recent Progress Patient-Stated? Author Blood Pressure < 140/90 Blood Pressure 132/72(2024 10:54 AM CDT) No Mikaela Albarran APRN-CNP HEMOGLOBIN A1C < 7.0 Result Component 8.1( 8:38 AM CDT) No Mikaela Albarran APRN-CNP documented as of this encounter Visit Diagnoses Not on filedocumented in this encounter Care Teams Resource Management Planner Relationship Specialty [place] [address] [address] [place] [address] PCP - General 07/10/08 11/12/20 [place] [address] [address] [place] [address] PCP - Attributed-MSSP 11/10/18 09/09/20 Aditi Leon PRODUCTION TRUCK DRIVER-GRADE AND CENTER MARKER [address] [place] [address] PCP - Attributed-MSSP 09/10/20 07/01/21 Kvng Wray MD 4938 [place] [address] PCP - General 11/13/20 09/12/23 Emilee Lehman PRODUCTION TRUCK DRIVER-GRADE AND CENTER MARKER [address] [address] PCP - General 09/13/23 [place] [address] [address] [place] [address] Pulmonary Disease 01/10/11 [place] [address] [place] [address] Ophthalmology 08/09/12 [place] [address] [place] [address] Otolaryngology 02/03/14 [place] [address] [place] [address] Gastroenterology 02/03/14 [place] [address] [place] [phone] Hand Surgery 02/03/14 [place] [address] [facility] [address] [place] [phone] Hematology 03/09/16 08/23/18 [place] [address] [place] [address] Hematology and Oncology 03/08/1708/23 [place] [address] [facility] [address] [address] [place] [phone] Hematology and Oncology 08/24/18 [place] [address] [place] [address] General Surgery 02/18/19 [place] [address] [place] [phone] Rheumatology 05/28/20 Ariella Lee MD [address] [facility] 3 [place] [address] Hematology and Oncology 03/04/24 documented as of this encounter
--- OUTSIDE RECORDS SUMMARY | 2025-01-25 15:40 | XMS_ITS ---
Author Organization [facility] Address [address] [facility] [place] [address] Care Team Providers Care Supervisor Carbon Electrodes Name Role Phone Wes Frazier MD Unavailable Cielo Connell MD Unavailable [phone] Emile Carias MD Unavailable [phone] Last Paul MD Unavailable [phone] Martha Ziegler MD Unavailable Yakelin Kelley MD Unavailable Lisa Prado MD Unavailable [phone] Tobi Crews MD Unavailable Emilee Lehman TECHNICAL PROGRAMS MANAGER-[facility] Primary Care Provider Ariella Lee MD Unavailable [phone] Active Problems Problem Noted Date Diagnosed Date Clostridium difficile infection 08/17/2024 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 Carpal tunnel syndrome 11/28/2023 Iron deficiency 04/03/2023 Chronic obstructive pulmonary disease 11/04/2022 03/06/2023 Biliary dyskinesia 05/02/2022 03/06/2023 Overview (03/06/2023): Added automatically from request for surgery [id number] Lumbosacral disc herniation 03/09/2022 Left sciatic nerve pain 02/01/2022 Age related osteoporosis 12/21/2020 BMI 29.0-29.9,adult 10/26/2020 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 Elevated cholesterol [...] MD on 03/04/2024 Overview (05/06/2020): 04/06/20 Aditi Leon, TECHNICAL PROGRAMS MANAGER-UMBRELLA FRAME MAKER Nurse Practitioner Current Treatment and Therapy Plans No current plan information found. Past Treatment and Therapy Plans No past plan information found. Lifetime Dose Tracking * Chemical Lifetime Dose Automatic Entry Manual Entr y Dose Length Product 4,721 mGy-cm 4,721 mGy-cm 0 mGy-cm Resolved Problems Problem Noted Date Diagnosed Date Resolved Date Chest pain at rest 07/10/2019 0 Assessment & Plan (07/10/2019 4:02 PM CAREER PLACEMENT SPECIALIST): # stress echo within 1 month # [...]
--- OUTSIDE RECORDS SUMMARY | 2025-01-25 15:40 | XMS_ITS | Encounter Summary ---
Author Organization [facility] Address [facility] [place] [address] Care Team Providers Care Surveying Technician Name Role Phone Emilee Lehman APRN Primary Care Provider [phone] Genia Cortes PharmD Unavailable [phone] Zacarias Scott MD Unavailable [phone] Encounter Details Date Type Department Care Team (Late st Contact Info) Description 10/12/2022 MyCMapSenset Message Enc [facility] Family & Internal Medicine [facility] [address] [place] [address] Emilee Lehman APRN [address] [address] Medical Clearance for Upcoming Cataract Surgery Social History Tobacco Use Types Packs/Day Years [...] Date Recorded Patient Health Questionnaire-2 Score 0 08/19/2022 Comments No Sex and Gender Information Value Date Recorded Sex Assigned at Female 06/25/2024 11:30 AM DIRECTOR OF FIELD COORDINATION Legal Sex Female 10:25 AM CDT Gender Identity Female 10/22/2021 9:50 AM CDT Sexual Orientation Not on file COVID-19 Exposure Response Date Recorded In the last 10 days, have yo u been in contact with someone who was confirmed or suspected to have Coronavirus/COVID-19? No / Unsure 10/14/2022 2:37 PM CDT documented as of this encounter Functional Status * RETIRED Are you deaf or do you have serious difficulty hearing Answer Date of Assessment Author Status No 06/15/2022 7:00 PM DIRECTOR OF FIELD COORDINATION Activ e * RETIRED Are you blind or do you have serious difficulty seeing, even when wearing glasses? Answer Date of Assessment Author Status No 06/15/2022 7:00 PM DIRECTOR OF FIELD COORDINATION Activ e * Do you have serious [...] Author Status No 06/15/2022 7:00 PM Eufemia Lozano, RN Active documented as of this encounter [...] Description 02/14/2025 11:20 AM CDT Office Visit [facility] Family & Internal Medicine [facility] [address] [place] [address] Emilee Lehman APRN [address] [place] [address] 03/28/2025 10:28 AM CDT Hospital Encounter [facility] [address] [place] [address] Rodrigo Lomeli MD [address] [address] 03/28/2025 10:28 AM CDT - 03/28/2025 10:50 AM CDT Surgery [facility] [address] [place] [address] Rodrigo Lomeli MD [address] [place] [address] EGD 11/14/2025 10:20 AM CDT Office Visit [facility] Group Multispecialty Care - [address], [address] [place] [address] Cheryl Hancock MD [address] [place] [address] Scheduled Procedures Name Priority Associated Diagnoses Date/Ti [...] Rule Out 06/02/2023 06/02/2023 06/02/2023 10:09 AM DIRECTOR OF FIELD COORDINATION Influenza - Seasonal 06/02/2023 06/02/2023 024 12:32 AM DIRECTOR OF FIELD COORDINATION COVID-19 Rule Out 06/30/2023 06/30/2023 06/30/2023 4:38 PM DIRECTOR OF FIELD COORDINATION Influenza - Seasonal 06/30/2023 06/30/2023 024 12:32 AM DIRECTOR OF FIELD COORDINATION COVID-19 Rule Out 11/21/2023 11/21/2023 11/21/2023 12:22 PM CDT Influenza - Seasonal 11/21/2023 11/21/2023 024 12:33 AM CDT COVID-19 Rule Out 07/17/2024 07/17/2024 07/17/2024 1:58 PM DIRECTOR OF FIELD COORDINATION Influenza - Seasonal 07/17/2024 07/17/2024 025 12:32 AM DIRECTOR OF FIELD COORDINATION Assessment Noted Time PHQ-9 Depression Total Score: 2 08/04/19 10:35 AM DIRECTOR OF FIELD COORDINATION documented as of this encounter Care Teams Surveying Technician Relationship Specialty Start Date End Date Emilee Lehman APRN [address] [place], [place] [id number] PCP - General NURSE PRACTITIONER 08/04/22 Genia Cortes, PharmD [address] [place] [address] Tenter Frame Operator (Ambulatory) Pharmacist 01/02/23 02/26/23 [place] [address] [place] [address] Consulting Physician CARDIOVASCULAR DISEASE 11/20/24 documented as of this encounter
--- OUTSIDE RECORDS SUMMARY | 2025-01-25 15:40 | XMS_ITS | Encounter Summary ---
Author Organization [facility] Address [facility] [place] [address] Care Team Providers Care Telecommunications Repairer Name Role Phone LehmanEmilee Janet LAFLEUR Primary Care Provider [phone] Genia Cortes PharmD Unavailable [phone] Zacarias Scott MD Unavailable Encounter Details Date Type Department Care Team (Latest Contact Info) Description 08/08/2022 MyChart Message Enc [facility] G[facility]ology Special[facility] [address] [address] Rodrigo Lomeli MD [address] [place] [address] Question About Approval for Insurance Purposed Social History Tobacco Use Types Packs/Day Years [...] Date Recorded Patient Health Questionnaire-2 Score 0 08/04/2022 Comments No Sex and Gender Information Value Date Recorded Sex Assigned at Female 06/25/2024 11:30 AM JEWEL INSERTER Legal Sex Female 10:25 AM CDT Gender Identity Female 10/22/2021 9:50 AM CDT Sexual Orientation Not on file COVID-19 Exposure Response Date Recorded In the last 10 days, have yo u been in contact with someone who was confirmed or suspected to have Coronavirus/COVID-19? No / Unsure 08/04/2022 9:55 AM JEWEL INSERTER documented as of this encounter Functional Status * RETIRED Are you deaf or do you have serious difficulty hearing Answer Date of Assessment Author Status No 06/15/2022 7:00 PM JEWEL INSERTER Activ e * RETIRED Are you blind or do you have serious difficulty seeing, even when wearing glasses? Answer Date of Assessment Author Status No 06/15/2022 7:00 PM JEWEL INSERTER Activ e * Do you have serious difficulty walking or climbing stairs? Answer Date of Assessment Author Status No 06/15/2022 7:00 PM JEWEL INSERTER Eufemia Jimenez RN Active * Do you [...] Description 02/14/2025 11:20 AM CDT Office Visit [facility] Family & Internal Medicine [facility] [address] [place] [address] Emilee Lehman, POPULATION HEALTH COACH [address] [place] [address] 03/28/2025 10:28 AM CDT Hospital Encounter [facility] [address] [place] [address] Rodrigo Lomeli MD [address] [address] 03/28/2025 10:28 AM CDT - 03/28/2025 10:50 AM CDT Surgery [facility] [address] [place] [address] Rodrigo Lomeli MD [address] [place] [address] EGD 11/14/2025 10:20 AM CDT Office Visit [facility] Multispecialty Care - [address], [address] [place] [address] Cheryl Hancock MD [address] [place] [address] Scheduled Procedures Name Priority Associated Diagnoses Date/Ti [...] PM CDT Influenza - Seasonal 10/14/2022 10/14/2022 05/ 023 12:32 AM CDT COVID-19 Rule Out 06/02/2023 06/02/2023 06/02/2023 10:09 AM JEWEL INSERTER Influenza - Seasonal 06/02/2023 06/02/2023 024 12:32 AM JEWEL INSERTER COVID-19 Rule Out 06/30/2023 06/30/2023 06/30/2023 4:38 PM JEWEL INSERTER Influenza - Seasonal 06/30/2023 06/30/2023 024 12:32 AM JEWEL INSERTER COVID-19 Rule Out 11/21/2023 11/21/2023 11/21/2023 12:22 PM CDT Influenza - Seasonal 11/21/2023 11/21/2023 024 12:33 AM CDT COVID-19 Rule Out 07/17/2024 07/17/2024 07/17/2024 1:58 PM JEWEL INSERTER Influenza - Seasonal 07/17/2024 07/17/2024 025 12:32 AM JEWEL INSERTER Assessment Noted Time PHQ-9 Depression Total Score: 2 08/04/19 10:35 AM JEWEL INSERTER documented as of this encounter Care Teams Telecommunications Repairer Relationship Specialty Start Date End Date Emilee Lehman APRN [address] [place], [place] [id number] PCP - General NURSE PRACTITIONER 08/04/22 Genia Cortes, PharmD [address] [place] [address] Journalism Intern (Ambulatory) Pharmacist 01/02/23 02/26/23 [place] [address] [place] [address] Consulting Physician CARDIOVASCULAR DISEASE 11/20/24 documented as of this encounter
--- OUTSIDE RECORDS SUMMARY | 2025-01-25 15:40 | XMS_ITS | Encounter Summary ---
Author Organization [facility] Address [address] [place] [address] Care Team Providers Care Care Taker Name Role Phone Zulay Carter MD Primary Care Provider [phone] Wes Frazier MD Unavailable [phone] Cielo Connell MD Unavailable [phone] Emile Carias MD Unavailable [phone] Last Paul MD Unavailable Martha Ziegler MD Unavailable [phone] Vinnie Gomez MD Unavailable Mi Bejarano MD Unavailable Unavailable Yakelin Kelley MD Unavailable Zulay Carter MD Unavailable Lisa Prado MD Unavailable [phone] Tobi Crews MD Unavailable Aditi Leon STUDIO GRIP-HAT BAND ATTACHER Unavailable [phone] Kvng Wray MD Primary Care Provider + Emilee Lehman STUDIO GRIP-HAT BAND ATTACHER Primary Care Provider Ariella Lee MD Unavailable [phone] Encounter Details Date Type Department Care Team (Late Contact Info) Description 08/07/2008 SS Outpatient Visit [facility] Last Mcintosh MD [address] [place] [address] Social History Tobacco Use Types Packs/Day Years Used Date Smoking Tobacco: Never Alcohol Use Standard Drinks/Week Comments Yes 0 (1 standard drink = 0.6 oz pur e alcohol) rare Comments Unknown Sex and Gender Information Value Date Recorded Sex Assigned at Female 05/27/2020 7:00 AM CONTRACT DESIGN AGENT Legal Sex Female 6:00 AM CONTRACT DESIGN AGENT Gender Identity Female 05/27/2020 7:00 AM CONTRACT DESIGN AGENT Sexual Orientation Straight 03/06/2023 11 :11 AM CDT documented as of this encounter Plan of Treatment Upcoming Encounters Date Type Department Care Team (Late Contact Info) Description 03/03/2025 10:40 AM CDT Office Visit [facility] - Hematology/Oncology [address] [place] [phone] Ariella Lee MD [address] [address] 08/11/2025 10:00 AM CONTRACT DESIGN AGENT Appointment [facility] [address] [place] [address] 09/16/2025 11:00 AM CDT Appointment [facility] Pulmonology [address] [place] [address] 09/17/2025 10:30 AM CDT Office Visit [facility] - Pulmonology [address] [facility] [address] [place] [address] [place] [address] [facility] [address] [place] [address] documented as of this encounter Visit Diagnoses Not on filedocumented in this encounter Care Teams Care Taker Relationship Specialty [place] [address] [place], [place] [id number] PCP - General 07/10/08 11/12/20 [place] [address] [facility] [address] [place] [address] PCP - Attributed-MSSP 11/10/18 09/09/20 Aditi Leon, STUDIO GRIP-HAT BAND ATTACHER [address] [facility] [address] [place] [address] PCP - Attributed-MSSP 09/10/20 07/01/21 Kvng Wray MD [address] [place] [phone] PCP - General 11/13/20 09/12/23 Emilee Lehman, STUDIO GRIP-HAT BAND ATTACHER [address] [facility] [address] [id number] PCP - General 09/13/23 [place] [address] [facility] [address] [place] [address] Pulmonary Disease 01/10/11 [place] [address] [place] [address] Ophthalmology 08/09/12 [place] [address] [facility] [address] [place] [address] Otolaryngology 02/03/14 [place] [address] [place] [address] Gastroenterology 02/03/14 [place] [address] [place] [address] Hand Surgery 02/03/14 [place] [address] [place] [address] Hematology 03/09/16 08/23/18 [place] [address] [place] [address] Hematology and Oncology 03/08/1708/23 [place] [address] [place] [address] Hematology and Oncology 08/24/18 [place] [address] [place] [address] General Surgery 02/18/19 [place] [address] [place] [id number] Rheumatology 05/28/20 Ariella Lee MD [address] [facility] [address] [place] [address] Hematology and Oncology 03/04/24 documented as of this encounter
--- OUTSIDE RECORDS SUMMARY | 2025-01-25 15:40 | XMS_ITS | Patient Health Record ---
Author Organization [facility] [place] ([address]) Address [address] [place] [address] Care Team Providers Care Senior Category Manager Name Role Phone Radha Lehman Primary Care Provider Dr. Alistair Olsen Unavailable [phone] Allergies Allergen (clinical drug ingredient) Drug/Non Drug Allergy documented on EMR Reaction Allergy Type Onset Date Status meperidine Demerol vomiting Drug Allergy Active penicillin V Penicillin V Potassium rash Drug Allergy Active lisinopril Lisinopril angioedema Drug Allergy Acti ve Reason For Referral No Information Medications Medication SIG (Take, Route, Frequency, Duration) Notes Start Date End Date Status metFORMIN HCl ER 500 MG 1 tab(s) orally once a day Active Ezetimibe 10 MG 1 tab(s) orally once a day Active Rosuvastatin Calcium 10 MG 1 tab(s) orally once a day Active Omeprazole 20 MG 1 cap(s) orally once a day Active Pantoprazole Sodium 40 MG 1 tab(s) orally once a day Active Pioglitazone HCl 30 MG 1 tab(s) orally once a day Active Farxiga 10 MG 1 tab(s) orally once a day Active Lisinopril 40 MG 1 tab(s) orally once a day Not-Taking Losartan Potassium 50 MG 1 tablet Orally Once a day Active Mucinex 600 MG 1 tab(s) orally every 12 hours Active Colace 100 MG 1 cap(s) orally 2 times a day Active Tums 500 MG 1 tab(s) chewed once a day Active Ferrous Sulfate *Please review a nd pick correct strength-formulati on from Medispan options. If intended option is not shown, discontinue and re-order from Quick Search* Active Fish Oil 500 MG 1 cap(s) orally once a day Active Co Q 10 100 MG 1 cap(s) orally once a day Active Aspirin 81 MG 1 tab(s) chewed once a day Active Ibuprofen 400 MG 1 tab(s) orally every 6 hours Active Problems Problem Type SNOMED Code ICD Code Onset Dates Problem Status W/U Status Risk Notes Problem Polyneuropathy due to type 2 diabetes mellitus (115731003) Type 2 diabetes mellitus with diabetic polyneuropathy (E11.42) Active confirmed Problem Chronic migraine without aura, non-refractory (disorder) (079231664379491) Migraine without aura, not intractable, without status migrainosus (G43.009) Active confirmed Problem Migraine with aura (7918959) Migraine with aura, not intractable, without status migrainosus (G43.109) Active confirmed Problem Chronic migraine without aura, non-intractable (445810480623701) Chronic migraine without aura, not intractable, without status migrainosus (G43.709) Active confirmed Problem Carpal tunnel syndrome (76807277) Carpal tunnel syndrome, right upper limb (G56.01) Active confirmed Problem 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 (8883257) 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 Problem 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) (1555534607441046 3) 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 Problem Degeneration of lumbar intervertebral disc (54759812) Other intervertebral disc degeneration, lumbar region (M51.36) Active confirmed Problem Carpal tunnel syndrome (93669454) Carpal tunnel syndrome, bilateral upper limbs (G56.03) Active confirmed Vital Signs Oximetry 98 % 02/01/2024 Blood pressure diastolic 71 mm Hg 02/01/2024 Height 63.3 in 02/01/2024 Blood pressure systolic 139 mm Hg 02/01/2024 Weight 170.6 lbs 02/01/2024 BMI 29.93 kg/m2 02/01/2024 Encounters Encounter Location Date Provider Diagnosis [facility] [address] [facility] [address] [place] [address] 02/01/2024 Alistair Hyde Type 2 diabetes mellitus with diabetic polyneuropathy E11.42 ; Drug-induced polyneuropathy G62.0 ; Other intervertebral disc degeneration, lumbar region M51.36 and Carpal tunnel syndrome, right upper limb G56.01 Assessments Encounter Date Diagnosis (ICD Code) Assessment Notes Treatment Notes Treatment Clinical Notes Section Notes 02/01/2024 Type 2 diabetes mellitus with diabetic polyneuropathy (ICD-10 - E11.42) Stable, unchanged. Monitor. 02/01/2024 Drug-induced polyneuropathy (ICD-10 - G62.0) Stable, unchanged. Monitor. 02/01/2024 Other intervertebral disc degeneration, lumbar region (ICD-10 - M51.36) Improved after PT. Continue PT HEP. 02/01/2024 Carpal tunnel syndrome, right upper limb (ICD-10 - G56.01) Proceed with right carpal tunnel release. Plan Of Treatment Pending Test Test Name Order Date EMG (Electromyography) - 2 (two) Extremi ties 07/20/2023 Insurance Providers Payer Name Payer Address Payer Phone Subscriber Number Group Number Insured Name Patient Relationship to Insured Coverage Start Date Coverage End Date [employer] (Medicare) Attention Claims [address] [place] [address] [id number] Mary Mcgarry Self - patient is the insured 8 [facility] [address] [place] [address] [id number] Mary Mcgarry Self - patient is the insured 0 Medical (General) History Medical History History ICD Code DM2 HLD HTN CAD Breast Cancer GERD Lumbar DDD OA Surgical History Surgery Date(Month/Year) S/p breast lumpectomy S/p CCK S/p upper endoscopy S/p hysterectomy
--- OUTSIDE RECORDS SUMMARY | 2025-01-25 15:40 | XMS_ITS | Encounter Summary ---
Author Organization [facility] Address [facility] [place] [address] Care Team Providers Care Administrative Personal Assistant Name Role Phone Kvng Wray MD Primary Care Provider U Emilee Daley APRN Primary Care Provider [phone] Genia Cortes PharmD Unavailable [phone] Zacarias Scott MD Unavailable [phone] Encounter Details Date Type Department Care Team (Late st Contact Info) Description 03/04/2021 Skinfix Message Enc [facility] Medical [facility] Family & Internal Medicine [address] [address] [facility] Provider results Social History Tobacco Use Types [...] Sex Assigned at Female 06/25/2024 11:30 AM MEDICAL LABORATORY SCIENTIST Legal Sex Female 10:25 AM CDT Gender [...] Description 02/14/2025 11:20 AM CDT Office Visit [facility] Family & Internal Medicine [facility] [address] [place] [phone] Emilee Lehman, LOCKER ROOM MANAGER [address] [address] 03/28/2025 10:28 AM CDT Hospital Encounter [facility] [address] [place] [place] [address] Rodrigo Lomeli MD [address] [place] [address] 03/28/2025 10:28 AM CDT - 03/28/2025 10:50 AM CDT Surgery [facility] [address] [place] [place] [address] Rodrigo Lomeli MD [address] [place] [address] EGD 11/14/2025 10:20 AM CDT Office Visit [facility] Multispecialty Care - [address], Suite [facility] [place] [address] Cheryl Hancock MD [address] [place] [address] Scheduled Procedures Name Priority Associated Diagnoses Date/Ti [...] Rule Out 06/02/2023 06/02/2023 06/02/2023 10:09 AM MEDICAL LABORATORY SCIENTIST Influenza - Seasonal 06/02/2023 06/02/2023 024 12:32 AM MEDICAL LABORATORY SCIENTIST COVID-19 Rule Out 06/30/2023 06/30/2023 06/30/2023 4:38 PM MEDICAL LABORATORY SCIENTIST Influenza - Seasonal 06/30/2023 06/30/2023 024 12:32 AM MEDICAL LABORATORY SCIENTIST COVID-19 Rule Out 11/21/2023 11/21/2023 11/21/2023 12:22 PM CDT Influenza - Seasonal 11/21/2023 11/21/2023 024 12:33 AM CDT COVID-19 Rule Out 07/17/2024 07/17/2024 07/17/2024 1:58 PM MEDICAL LABORATORY SCIENTIST Influenza - Seasonal 07/17/2024 07/17/2024 025 12:32 AM MEDICAL LABORATORY SCIENTIST Assessment Noted Time PHQ-9 Depression Total Score: 1 02/17/20 21 10:04 AM CDT documented as of this encounter Care Teams Administrative Personal Assistant Relationship Specialty Start Date End Date Kvng Wray MD PCP - General INTERNAL MEDICINE 10/26/20 08/03/22 Emilee Lehman APRN [address] [place] [address] PCP - General NURSE PRACTITIONER 08/04/22 Genia Cortes, PharmD [address] [place] [address] Csr Retail (Ambulatory) Pharmacist 01/02/23 02/26/23 [place] [address] [address] Consulting Physician CARDIOVASCULAR DISEASE 11/20/24 documented as of this encounter
--- OUTSIDE RECORDS SUMMARY | 2025-01-25 15:40 | XMS_ITS | Encounter Summary ---
Author Organization [facility] Address [facility] [place] [address] Care Team Providers Care Pharmacy Director Name Role Phone Emilee Lehman APRN Primary Care Provider [phone] Zacarias Scott MD Unavailable [phone] Encounter Details Date Type Department Care Team (Late st Contact Info) Description 04/24/2023 Icanbesponsoredt Message Enc [facility] Medical Group Family & Internal Medicine [facility] [address] [place] [address] Emilee Lehman APRN [address] [address] Testing for Neurology Appointment Social History Tobacco Use Types Packs/Day Years [...] Date Recorded Patient Health Questionnaire-2 Score 0 01/02/2023 Comments No Sex and Gender Information Value Date Recorded Sex Assigned at Female 06/25/2024 11:30 AM LIGHTING ENGINEERING TECHNICIAN Legal Sex Female 10:25 AM CDT Gender Identity Female 10/22/2021 9:50 AM CDT Sexual Orientation Not on file documented as of this encounter Functional Status * RETIRED Are you deaf or do you have serious difficulty hearing Answer Date of Assessment Author Status No 06/15/2022 7:00 PM LIGHTING ENGINEERING TECHNICIAN Activ e * RETIRED Are you blind or do you have serious difficulty seeing, even when wearing glasses? Answer Date of Assessment Author Status No 06/15/2022 7:00 PM LIGHTING ENGINEERING TECHNICIAN Activ e * Do you have serious difficulty walking or climbing stairs? Answer Date of Assessment Author Status No 06/15/2022 7:00 PM LIGHTING ENGINEERING TECHNICIAN Eufemia Jimenez RN Active * Do you have difficulty dressing or bathing? Answer Date of Assessment Author Status No 06/15/2022 7:00 PM LIGHTING ENGINEERING TECHNICIAN Eufemia Jimenez RN Active * Because of a physical, mental, or emotional condition, do you have difficulty doing errands alone such as visiting a doctor's office or shopping? Answer Date of Assessment Author Status No 06/15/2022 7:00 PM LIGHTING ENGINEERING TECHNICIAN Eufemia Jimenez RN Active documented as of this encounter Mental Status * Because of a physical, mental, or emotional condition, do you have serious difficulty concentrating, remembering, or making decisions? Answer Entry Date Author Status No 06/15/2022 7:00 PM LIGHTING ENGINEERING TECHNICIAN Eufemia Jimenez RN Active documented in this encounter Progress Notes * Emilee Lehman APRN - 04/24/2023 7:36 PM CST Ok for MRI lumbar spine WO con. Lumbar radiculopathy. Low back pain radiating into right lower extremity to the ankle. No known injury. TING ENGINEERING TECHNICIAN * Devaughn Trejo RN - 04/24/2023 4:34 PM CST Please advise on what imaging you would like and dx? TING ENGINEERING TECHNICIAN * Myranda Hunter MA - 04/24/2023 4:34 PM CST Ok for mri order? TING ENGINEERING TECHNICIAN documented in this encounter Plan of Treatment Upcoming Encounters Date Type Department Care Team (Late st Contact Info) Description 02/14/2025 11:20 AM CDT Office Visit [facility] Family & Internal Medicine - [place] [address] [place] [address] Emilee Lehman, TYPE INSPECTOR [address] [address] 03/28/2025 10:28 AM CDT Hospital Encounter [facility] [address] [place] [address] Rodrgio Lomeli MD [address] [place] [address] 03/28/2025 10:28 AM CDT - 03/28/2025 10:50 AM CDT Surgery [facility] [address] [place] [address] Rodrigo Lomeli MD [address] [place] [address] EGD 11/14/2025 10:20 AM CDT Office Visit [facility] Multispecialty Care - [facility] [address] [place] [address], [address] [place] [phone] Cheryl Hancock MD [address] [place] [address] Scheduled Procedures Name Priority Associated Diagnoses Date/Ti me EGD Gastroesophageal reflux disease, unspecified whether esophagitis present HH (hiatus hernia) RUQ pain 03/28/2025 10:28 AM CDT documented as of this encounter Goals Goal Patient Goal Type Associated Problems Recent Progress Patient-Stated? Author Blood Pressure < 140/90 Blood Pressure 120/60(2024 11:06 AM CDT) No Genia Cortes, PharmKasey Consistently Take Medications as Prescribed Lifestyle Not on track( 023 11:48 AM CDT) No Genia Cortes, Elvira Note: Hypertension: Patient will monitor B/P several [...] AM CDT) No Genia Cortes, PharmD Note: Diabetes: Patient will manage diabetes [...] < 7 Result Component 8(08/09/2024 12:00 AM LIGHTING ENGINEERING TECHNICIAN) No Genia Cortes, PharmD documented as of this encounter Visit Diagnoses Not on filedocumented in this encounter Additional Health Concerns Infection Onset Date Last Indicated Resolved Time MRSA Comment:02/17/21 +MRSA Nasal 06/09/22 negative nares (JK) 02/18/2021 02/18/2021 COVID-19 Rule Out 06/02/2023 06/02/2023 06/02/2023 10:09 AM LIGHTING ENGINEERING TECHNICIAN Influenza - Seasonal 06/02/2023 06/02/2023 024 12:32 AM LIGHTING ENGINEERING TECHNICIAN COVID-19 Rule Out 06/30/2023 06/30/2023 06/30/2023 4:38 PM LIGHTING ENGINEERING TECHNICIAN Influenza - Seasonal 06/30/2023 06/30/2023 024 12:32 AM LIGHTING ENGINEERING TECHNICIAN COVID-19 Rule Out 11/21/2023 11/21/2023 11/21/2023 12:22 PM CDT Influenza - Seasonal 11/21/2023 11/21/2023 024 12:33 AM CDT COVID-19 Rule Out 07/17/2024 07/17/2024 07/17/2024 1:58 PM LIGHTING ENGINEERING TECHNICIAN Influenza - Seasonal 07/17/2024 07/17/2024 025 12:32 AM LIGHTING ENGINEERING TECHNICIAN Assessment Noted Time PHQ-9 Depression Total Score: 2 08/04/19 23 10:35 AM LIGHTING ENGINEERING TECHNICIAN documented as of this encounter Care Teams Pharmacy Director Relationship Specialty Start Date End Date Emilee Lehman APRN [address] [facility] [address] [place] [address] PCP - General NURSE PRACTITIONER 08/04/22 [place] [address] [facility] [address] [place] [address] Consulting Physician CARDIOVASCULAR DISEASE 11/20/24 documented as of this encounter
--- OUTSIDE RECORDS SUMMARY | 2025-01-25 15:40 | XMS_ITS | Encounter Summary ---
Author Organization [facility] Address [facility] [place] [address] Care Team Providers Care Metal Fabrication Supervisor Name Role Phone Emilee Lehman APRN Primary Care Provider [phone] Zacarias Scott MD Unavailable [phone] Encounter Details Date Type Department Care Team (Late st Contact Info) Description 01/16/2025 Results [facility] [address] [place] [phone] Genia Herndon, VEHICLE DYNAMICS ENGINEER [address] [address] [place] PHARM NUC STRESS TEST 1 DAY W TRACING Social History Tobacco Use Types Packs/Day Years [...] Date Recorded Patient Health Questionnaire-2 Score 0 11/14/2024 Comments No Sex and Gender Information Value Date Recorded Sex Assigned at Female 06/25/2024 11:30 AM LONG FILLER CIGAR ROLLER MACHINE Legal Sex Female 10:25 AM CDT Gender Identity Female 10/22/2021 9:50 AM CDT Sexual Orientation Not on file documented as of this encounter Functional Status * RETIRED Are you deaf or do you have serious difficulty hearing Answer Date of Assessment Author Status No 06/15/2022 7:00 PM LONG FILLER CIGAR ROLLER MACHINE Activ e * RETIRED Are you blind or do you have serious difficulty seeing, even when wearing glasses? Answer Date of Assessment Author Status No 06/15/2022 7:00 PM LONG FILLER CIGAR ROLLER MACHINE Activ e * Do you have serious difficulty walking or climbing stairs? Answer Date of Assessment Author Status No 06/15/2022 7:00 PM LONG FILLER CIGAR ROLLER MACHINE Eufemia Jimenez RN Active * Do you have difficulty dressing or bathing? Answer Date of Assessment Author Status No 06/15/2022 7:00 PM LONG FILLER CIGAR ROLLER MACHINE Eufemia Jimenez RN Active * Because of a physical, mental, or emotional condition, do you have difficulty doing errands alone such as visiting a doctor's office or shopping? Answer Date of Assessment Author Status No 06/15/2022 7:00 PM LONG FILLER CIGAR ROLLER MACHINE Eufemia Jimenez RN Active documented as of this encounter Mental Status * Because of a physical, mental, or emotional condition, do you have serious difficulty concentrating, remembering, or making decisions? Answer Entry Date Author Status No 06/15/2022 7:00 PM LONG FILLER CIGAR ROLLER MACHINE Eufemia Jimenez RN Active documented in this encounter Plan of Treatment Upcoming Encounters Date Type Department Care Team (Late st Contact Info) Description 02/14/2025 11:20 AM CDT Office Visit [facility] Medical [facility] Family & Internal Medicine [facility] [address] [place] [address] Emilee Lehman, MIQUEL [address] [facility] [address] [place] [address] 03/28/2025 10:28 AM CDT Hospital Encounter [facility] [address] [place], [place] [phone] Rodrigo Lomeli MD 3 [place] 4[address]79 03/28/2025 10:28 AM CDT - 03/28/2025 10:50 AM CDT Surgery [facility] Surgery [address] [place] [address] Rodrigo Lomeli MD 3 [facility] [address] [place] [address] EGD 11/14/2025 10:20 AM CDT Office Visit [facility] Medical Group Mult[facility]ialty Care - [facility] 3 [facility], [address] [place] [address] Cheryl Hancock MD 3 [place] [address] Scheduled Procedures Name Priority Associated Diagnoses Date/Ti [...] < 7 Result Component 8(08/09/2024 12:00 AM LONG FILLER CIGAR ROLLER MACHINE) Genia Atkins, PharmD documented as of this encounter Visit Diagnoses Not on filedocumented in this encounter Additional Health Concerns Infection Onset Date Last Indicated Resolved Time MRSA Comment:02/17/21 +MRSA Nasal 06/09/22 negative nares (JK) 02/18/2021 02/18/2021 Assessment Noted Time PHQ-9 Depression Total Score: 0 07/05/19 25 2:58 PM LONG FILLER CIGAR ROLLER MACHINE documented as of this encounter Care Teams Metal Fabrication Supervisor Relationship Specialty Start Date End Date Emilee Lehman APRN [address] [address] [place] [address] PCP - General NURSE PRACTITIONER 08/04/22 [place] [address] [facility] [address] [place] [address] Consulting Physician CARDIOVASCULAR DISEASE 11/20/24 documented as of this encounter
--- OUTSIDE RECORDS SUMMARY | 2025-01-25 15:40 | XMS_ITS | Encounter Summary ---
Author Organization [facility] Address [facility] [place] [address] Care Team Providers Care Cost Engineer Name Role Phone Fallon Emilee Gonzales APRN Primary Care Provider [phone] Zacarias Scott MD Unavailable [phone] Encounter Details Date Type Department Care Team (Latest Contact Info) Description 08/31/2023 ShipBobt Message Enc [facility] [address] [address] Rodrigo Lomeli MD [address] [place] [address] Pantoprazole Refill Social History Tobacco Use Types Packs/Day Years [...] Sex Assigned at Female 06/25/2024 11:30 AM MAKEUP ARTISTRY INSTRUCTOR Legal Sex Female 10:25 AM CDT Gender Identity Female 10/22/2021 9:50 AM CDT Sexual Orientation Not on file documented as of this encounter Functional Status * RETIRED Are you deaf or do you have serious difficulty hearing Answer Date of Assessment Author Status No 06/15/2022 7:00 PM MAKEUP ARTISTRY INSTRUCTOR Activ e * RETIRED Are you blind or do you have serious difficulty seeing, even when wearing glasses? Answer Date of Assessment Author Status No 06/15/2022 7:00 PM MAKEUP ARTISTRY INSTRUCTOR Activ e * Do you have serious difficulty walking or climbing stairs? Answer Date of Assessment Author Status No 06/15/2022 7:00 PM MAKEUP ARTISTRY INSTRUCTOR Eufemia Jimenez RN Active * Do you [...] Description 02/14/2025 11:20 AM CDT Office Visit [facility] Medical Group Family & Internal Medicine [facility] [address] [place] [address] Emilee Lehman, INGOT SUPERVISOR [address] [facility] [address] [place] [address] 03/28/2025 10:28 AM CDT Hospital Encounter [facility] [address] [place], [place] [phone] Rodrigo Lomeli MD [address] [place] [address] 03/28/2025 10:28 AM CDT - 03/28/2025 10:50 AM CDT Surgery [facility] Surgery [address] [place] [address] Rodrigo Lomeli MD 3 [facility] [address] [place] [address] EGD 11/14/2025 10:20 AM CDT Office Visit [facility] Medical Group Multispecialty Care - [facility] 3 [facility], [address] [place] [address] Cheryl Hancock MD 3 [place] [address] Scheduled Procedures Name Priority Associated Diagnoses Date/Ti wa EGD Gastroesophageal reflux disease, unspecified whether esophagitis [...] < 7 Result Component 8(08/09/2024 12:00 AM MAKEUP ARTISTRY INSTRUCTOR) Genia Atkins, PharmD documented as of this encounter Visit Diagnoses Not on filedocumented in this encounter Additional Health Concerns Infection Onset Date Last Indicated Resolved Time MRSA Comment:02/17/21 +MRSA Nasal 06/09/22 negative nares (JK) 02/18/2021 02/18/2021 COVID-19 Rule Out 11/21/2023 11/21/2023 11/21/2023 12:22 PM CDT Influenza - Seasonal 11/21/2023 11/21/2023 024 12:33 AM CDT COVID-19 Rule Out 07/17/2024 07/17/2024 07/17/2024 1:58 PM MAKEUP ARTISTRY INSTRUCTOR Influenza - Seasonal 07/17/2024 07/17/2024 025 12:32 AM MAKEUP ARTISTRY INSTRUCTOR Assessment Noted Time PHQ-9 Depression Total Score: 2 08/04/19 23 10:35 AM MAKEUP ARTISTRY INSTRUCTOR documented as of this encounter Care Teams Cost Engineer Relationship Specialty Start Date End Date Emilee Lehman APRN [address] [address] PCP - General NURSE PRACTITIONER 08/04/22 [place] [address] [place] [address] Consulting Physician CARDIOVASCULAR DISEASE 11/20/24 documented as of this encounter
--- OUTSIDE RECORDS SUMMARY | 2025-01-25 15:40 | XMS_ITS | Encounter Summary ---
Author Organization [facility] Address [facility] [place] [address] Care Team Providers Care Medical Record Technician Name Role Phone Kvng Wray MD Primary Care Provider U Emilee Daley APRN Primary Care Provider [phone] Genia Cortes PharmD Unavailable Zacarias Scott MD Unavailable [phone] Encounter Details Date Type Department Care Team (Late st Contact Info) Description 12/21/2020 Therapy Plan [facility] Medical Group Family & Internal Medicine [address] [address] Kvng Wray MD Social History [...] Sex Assigned at Female 06/25/2024 11:30 AM ACCOUNT SERVICES ASSOCIATE Legal Sex Female 10:25 AM CDT [...] Description 02/14/2025 11:20 AM CDT Office Visit [facility] Family & Internal Medicine - [place] [address] [place] [phone] Emilee Lehman, OPTICIANRY TEACHER [address] [phone] 03/28/2025 10:28 AM CDT Hospital Encounter [facility] [address] [place] [address] Rodrigo Lomeli MD [address] [place] [address] 03/28/2025 10:28 AM CDT - 03/28/2025 10:50 AM CDT Surgery [facility] [address] [place] [address] Rodrigo Lomeli MD [address] [place] [address] EGD 11/14/2025 10:20 AM CDT Office Visit [facility] Multispecialty Care - [address], [address] [phone] Cheryl Hancock MD [address] [place] [address] Scheduled Procedures Name Priority Associated Diagnoses Date/Ti [...] Rule Out 06/02/2023 06/02/2023 06/02/2023 10:09 AM ACCOUNT SERVICES ASSOCIATE Influenza - Seasonal 06/02/2023 06/02/2023 024 12:32 AM ACCOUNT SERVICES ASSOCIATE COVID-19 Rule Out 06/30/2023 06/30/2023 06/30/2023 4:38 PM ACCOUNT SERVICES ASSOCIATE Influenza - Seasonal 06/30/2023 06/30/2023 024 12:32 AM ACCOUNT SERVICES ASSOCIATE COVID-19 Rule Out 11/21/2023 11/21/2023 11/21/2023 12:22 PM CDT Influenza - Seasonal 11/21/2023 11/21/2023 024 12:33 AM CDT COVID-19 Rule Out 07/17/2024 07/17/2024 07/17/2024 1:58 PM ACCOUNT SERVICES ASSOCIATE Influenza - Seasonal 07/17/2024 07/17/2024 025 12:32 AM ACCOUNT SERVICES ASSOCIATE documented as of this encounter Care Teams Medical Record Technician Relationship Specialty Start Date End Date Kvng Wray MD PCP - General INTERNAL MEDICINE 10/26/20 08/03/22 Emilee Lehman APRN [phone] [address] PCP - General NURSE PRACTITIONER 08/04/22 Genia Cortes, PharmD [address] [place] [address] Book Cleaner (Ambulatory) Pharmacist 01/02/23 02/26/23 [place] [address] [address] Consulting Physician CARDIOVASCULAR DISEASE 11/20/24 documented as of this encounter
--- OUTSIDE RECORDS SUMMARY | 2025-01-25 15:40 | XMS_ITS | Encounter Summary ---
Author Organization [facility] Address [facility] [place] [address] Care Team Providers Care Cardiac Care Nurse Name Role Phone Kvng Wray MD Primary Care Provider U Emilee Daley APRN Primary Care Provider [phone] Genia Cortes PharmD Unavailable [phone] Zacarias Scott MD Unavailable [phone] Encounter Details Date Type Department Care Team (Late st Contact Info) Description 02/17/2021 MyChart Message Enc [facility] Medical Group Family & Internal Medicine [address] [address] Kvng Wray MD RE: Question [...] Sex Assigned at Female 06/25/2024 11:30 AM FLASK FITTER Legal Sex Female 10:25 AM CDT Gender Identity Female 10/22/2021 9:50 AM CDT Sexual Orientation Not on file COVID-19 Exposure Response Date Recorded In the last month, have you been in contact with someone who was confirmed or suspected to have Coronavirus / COVID-19? No / Unsure 02/17/2021 12:01 PM CDT documented as of this encounter Plan of Treatment Upcoming Encounters Date Type Department Care Team (Late st Contact Info) Description 02/14/2025 11:20 AM CDT Office Visit [facility] Medical [facility] Family & Internal Medicine - [place] [address] [place] [phone] Emilee Lehman APRN [address] [address] 03/28/2025 10:28 AM CDT Hospital Encounter [facility] [address] [place] [address] Rodrigo Lomeli MD [address] [place] [address] 03/28/2025 10:28 AM CDT - 03/28/2025 10:50 AM CDT Surgery [facility] [address] [place] [address] Rodrigo Lomeli MD [address] [place] [address] EGD 11/14/2025 10:20 AM CDT Office Visit [facility] Multispecialty Care - [address], [address] [place] [phone] Cheryl Hancock MD [address] [place] [address] Scheduled Procedures Name Priority Associated Diagnoses Date/Ti [...] Rule Out 06/02/2023 06/02/2023 06/02/2023 10:09 AM FLASK FITTER Influenza - Seasonal 06/02/2023 06/02/2023 024 12:32 AM FLASK FITTER COVID-19 Rule Out 06/30/2023 06/30/2023 06/30/2023 4:38 PM FLASK FITTER Influenza - Seasonal 06/30/2023 06/30/2023 024 12:32 AM FLASK FITTER COVID-19 Rule Out 11/21/2023 11/21/2023 11/21/2023 12:22 PM CDT Influenza - Seasonal 11/21/2023 11/21/2023 024 12:33 AM CDT COVID-19 Rule Out 07/17/2024 07/17/2024 07/17/2024 1:58 PM FLASK FITTER Influenza - Seasonal 07/17/2024 07/17/2024 025 12:32 AM FLASK FITTER Assessment Noted Time PHQ-9 Depression Total Score: 1 02/17/20 10:04 AM CDT documented as of this encounter Care Teams Cardiac Care Nurse Relationship Specialty Start Date End Date Kvng Wray MD PCP - General INTERNAL MEDICINE 10/26/20 08/03/22 Emilee Lehman APRN [address] [place] [phone] (Work) PCP - General NURSE PRACTITIONER 08/04/22 Genia Cortes, PharmD [address] [place] [address] Label Paster (Ambulatory) Pharmacist 01/02/23 02/26/23 [place] [address] [address] [facility] [address] [place] [address] Consulting Physician CARDIOVASCULAR DISEASE 11/20/24 documented as of this encounter
--- OUTSIDE RECORDS SUMMARY | 2025-01-25 15:40 | XMS_ITS | Encounter Summary ---
Author Organization [facility] Address [address] [place] [address] Care Team Providers Care Shipyard Painter Helper Name Role Phone Zulay Carter MD Primary Care Provider [phone] Wes Frazier MD Unavailable [phone] Cielo Connell MD Unavailable [phone] Emile Carias MD Unavailable [phone] Last Paul MD Unavailable [phone] Martha Ziegler MD Unavailable [phone] Vinnie Gomez MD Unavailable Mi Bejarano MD Unavailable Unavailable Yakelin Kelley MD Unavailable Zulay Carter MD Unavailable [phone] Lisa Prado MD Unavailable [phone] Tobi Crews MD Unavailable Aditi Leon DIGITAL ACCOUNT SUPERVISOR-STATION DETECTIVE Unavailable + [phone] Kvng Wray MD Primary Care Provider + Emilee Lehman DIGITAL ACCOUNT SUPERVISOR-STATION DETECTIVE Primary Care Provider Ariella Lee MD Unavailable [phone] Reason for Visit * Reason Onset Date Comments MEDICATION REFILL 08/20/2012 Encounter Details Date Type Department Care Team (Latest Contact Info) Description 08/20/2012 Refill TEST MEDICATION REFILL Social History Tobacco Use Types Packs/Day Years Used Date Smoking Tobacco: Former Cigarettes 1 19 0 11/25/1973 - 11/25/1992 Smokeless Tobacco: Never Alcohol Use Standard Drinks/Week Comments Yes 0 (1 standard drink = 0.6 oz pur e alcohol) rare Comments No Sex and Gender Information Value Date Recorded Sex Assigned at Female 05/27/2020 7:00 AM SPIRITUAL COUNSELOR Legal Sex Female 6:00 AM SPIRITUAL COUNSELOR Gender Identity Female 05/27/2020 7:00 AM SPIRITUAL COUNSELOR Sexual Orientation Straight 03/06/2023 11 :11 AM CDT 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 Physician Group - Hematology/Oncology [address] [place] [address] Ariella Lee MD [address] [address] 08/11/2025 10:00 AM SPIRITUAL COUNSELOR [facility]ointment [facility] [address] [place] [address] 09/16/2025 11:00 AM CDT Appointment [facility] Pulmonology [address] [place] [address] 09/17/2025 10:30 AM CDT Office Visit [facility]ology [address] [facility] [address] [place] [address] [place] [address] [facility] [address] [place], [place] [phone] documented as of this encounter Visit Diagnoses Not on filedocumented in this encounter Care Teams Shipyard Painter Helper Relationship Specialty [place] [address] [facility] [address] [place] [address] PCP - General 07/10/08 11/12/20 [place] [address] [place] [address] PCP - Attributed-MSSP 11/10/18 09/09/20 Aditi Leon, DIGITAL ACCOUNT SUPERVISOR-STATION DETECTIVE [address] [facility] [address] [place] [address] PCP - Attributed-MSSP 09/10/20 07/01/21 Kvng Wray MD [address] [place] [phone] PCP - General 11/13/20 09/12/23 Emilee Lehman, DIGITAL ACCOUNT SUPERVISOR-STATION DETECTIVE [address] [facility] [address] [place], [place] [phone] PCP - General 09/13/23 [place] [address] [place] [address] Pulmonary Disease 01/10/11 [place] [address] [place] [address] Ophthalmology 08/09/12 [place] [address] [place] [address] Otolaryngology 02/03/14 [place] [address] [place] [address] Gastroenterology 02/03/14 [place] [address] [place] [address] Hand Surgery 02/03/14 [place] [address] [place] [address] Hematology 03/09/16 08/23/18 [place] [address] [place] [address] Hematology and Oncology 03/08/1708/23 [place] [address] [place] [address] Hematology and Oncology 08/24/18 [place] [address] [place] [address] General Surgery 02/18/19 [place] [address] [place] [phone] Rheumatology 05/28/20 Ariella Lee MD [address] [facility] 3 [place] [address] Hematology and Oncology 03/04/24 documented as of this encounter
--- OUTSIDE RECORDS SUMMARY | 2025-01-25 15:40 | XMS_ITS | Encounter Summary ---
Author Organization [facility] Address [facility] [place] [address] Care Team Providers Care Pet Walker Name Role Phone Kvng Wray MD Primary Care Provider U Emilee Daley APRN Primary Care Provider [phone] Genia Cortes PharmD Unavailable [phone] Zacarias Scott MD Unavailable [phone] Reason for Referral * Injection (Routine) - Closed Specialty Diagnoses / Procedures Referred By Contac t Referred To Contact INFUSION THERAPY Diagnoses Age related osteoporosis Procedures INJ,DENOSUMAB,1 MG (XGEVA,PROLIA) For Prolia 60mg SQ every 6 mos x 2 doses [facility] [address] [place] [address] Phone: tel: Referral ID Status Reason Start Date Expiration Date V isits Requested Visits Authorized [id number] Closed Specialty Services 12/21/2020 01/21/2022 2 2 Scheduling Instructions For Prolia 60mg SQ q 6 mos x 2 doses Encounter Details Date Type Department Care Team (Late st Contact Info) Description 12/21/2020 Therapy Plan [facility] [address] [place] [address] Kvng Wray MD Social History Tobacco Use [...] Sex Assigned at Female 06/25/2024 11:30 AM INSULATION CUTTER AND FORMER Legal Sex Female 10:25 AM CDT Gender [...] Description 02/14/2025 11:20 AM CDT Office Visit [facility] Medical Group Family & Internal Medicine [facility] [address] [place] [address] Emilee Lehman APRN [address] [phone] 03/28/2025 10:28 AM CDT Hospital Encounter [facility] [address] [place] [address] Rodrigo Lomeli MD [address] [phone] 03/28/2025 10:28 AM CDT - 03/28/2025 10:50 AM CDT Surgery [facility] [address] [place] [address] Rodrigo Lomeli MD [address] [address] EGD 11/14/2025 10:20 AM CDT Office Visit [facility] Medical Group Multispecialty Care - [facility] 3 [facility], [address] [place] [address] Cheryl Hancock MD 3 [place] [address] Scheduled Procedures Name Priority Associated Diagnoses Date/Ti me EGD Gastroesophageal reflux disease, unspecified whether esophagitis present HH (hiatus hernia) RUQ pain 03/28/2025 10:28 AM CDT Scheduled Referrals Name Type Priority Associated Diagnoses Orde r Schedule Ambulatory referral to Infusion Therapy Referral Routine Age related osteoporosis Ordered: 12/21/2020 documented as of this encounter Visit Diagnoses [...] Rule Out 06/02/2023 06/02/2023 06/02/2023 10:09 AM INSULATION CUTTER AND FORMER Influenza - Seasonal 06/02/2023 06/02/2023 024 12:32 AM INSULATION CUTTER AND FORMER COVID-19 Rule Out 06/30/2023 06/30/2023 06/30/2023 4:38 PM INSULATION CUTTER AND FORMER Influenza - Seasonal 06/30/2023 06/30/2023 024 12:32 AM INSULATION CUTTER AND FORMER COVID-19 Rule Out 11/21/2023 11/21/2023 11/21/2023 12:22 PM CDT Influenza - Seasonal 11/21/2023 11/21/2023 024 12:33 AM CDT COVID-19 Rule Out 07/17/2024 07/17/2024 07/17/2024 1:58 PM INSULATION CUTTER AND FORMER Influenza - Seasonal 07/17/2024 07/17/2024 025 12:32 AM INSULATION CUTTER AND FORMER documented as of this encounter Care Teams Pet Walker Relationship Specialty Start Date End Date Kvng Wray MD PCP - General INTERNAL MEDICINE 10/26/20 08/03/22 Emilee Lehman APRN [address] [address] [facility] [address] [place] [address] PCP - General NURSE PRACTITIONER 08/04/22 Genia Cortes, PharmD [address] [place] [address] Dietetic Technician (Ambulatory) Pharmacist 01/02/23 02/26/23 [place] [address] [address] [place], [place] [address] Consulting Physician CARDIOVASCULAR DISEASE 11/20/24 documented as of this encounter
--- OUTSIDE RECORDS SUMMARY | 2025-01-25 15:41 | XMS_ITS | Encounter Summary ---
Author Organization [facility] Address [facility] [place] [address] Care Team Providers Care Tilt Tray Driver Name Role Phone Kvng Wray MD Primary Care Provider U Emilee Daley APRN Primary Care Provider [phone] Genia Cortes PharmD Unavailable [phone] Zacarias Scott MD Unavailable Encounter Details Date Type Department Care Team (Late st Contact Info) Description 05/17/2022 Off[employer] Message Enc [facility] Medical [facility] Family & Internal Medicine [address] [address] Kvng Wray MD OffScale shows conversation on May 15 Social History Tobacco Use Types Packs/Day Years [...] Sex Assigned at Female 06/25/2024 11:30 AM GLYCERIN SUPERVISOR Legal Sex Female 10:25 AM CDT Gender Identity Female 10/22/2021 9:50 AM CDT Sexual Orientation Not on file COVID-19 Exposure Response Date Recorded In the last 10 days, have yo u been in contact with someone who was confirmed or suspected to have Coronavirus/COVID-19? Unable to assess 05/19/2022 12:06 PM GLYCERIN SUPERVISOR documented as of this encounter Plan of Treatment Upcoming Encounters Date Type Department Care Team (Late st Contact Info) Description 02/14/2025 11:20 AM CDT Office Visit [facility] Family & Internal Medicine - [place] [address] [place] [phone] Emilee Lehman APRN [address] [address] 03/28/2025 10:28 AM CDT Hospital Encounter [facility] [address] [place] [address] Rodrigo Lomeli MD [address] [place] [address] 03/28/2025 10:28 AM CDT - 03/28/2025 10:50 AM CDT Surgery [facility] [address] [place] [address] Rodrigo Lomeli MD [address] [place] [address] EGD 11/14/2025 10:20 AM CDT Office Visit [facility] Multispecialty Care - [address], [address] [place] [address] Cheryl Hancock MD 3 [place] [address] Scheduled Procedures Name Priority Associated Diagnoses Date/Ti [...] Rule Out 06/02/2023 06/02/2023 06/02/2023 10:09 AM GLYCERIN SUPERVISOR Influenza - Seasonal 06/02/2023 06/02/2023 024 12:32 AM GLYCERIN SUPERVISOR COVID-19 Rule Out 06/30/2023 06/30/2023 06/30/2023 4:38 PM GLYCERIN SUPERVISOR Influenza - Seasonal 06/30/2023 06/30/2023 024 12:32 AM GLYCERIN SUPERVISOR COVID-19 Rule Out 11/21/2023 11/21/2023 11/21/2023 12:22 PM CDT Influenza - Seasonal 11/21/2023 11/21/2023 024 12:33 AM CDT COVID-19 Rule Out 07/17/2024 07/17/2024 07/17/2024 1:58 PM GLYCERIN SUPERVISOR Influenza - Seasonal 07/17/2024 07/17/2024 025 12:32 AM GLYCERIN SUPERVISOR Assessment Noted Time PHQ-9 Depression Total Score: 1 02/17/20 10:04 AM CDT documented as of this encounter Care Teams Tilt Tray Driver Relationship Specialty Start Date End Date Kvng Wray MD PCP - General INTERNAL MEDICINE 10/26/20 08/03/22 Emilee Lehman APRN [address] [phone] PCP - General NURSE PRACTITIONER 08/04/22 Genia Cortes, PharmD [address] [place] [address] Machine Tracer (Ambulatory) Pharmacist 01/02/23 02/26/23 [place] [address] [place] [address] Consulting Physician CARDIOVASCULAR DISEASE 11/20/24 documented as of this encounter
--- OUTSIDE RECORDS SUMMARY | 2025-01-25 15:41 | XMS_ITS ---
Author Organization Counts Include [facility] [employer] [place] ([address]) Address [address] [place] [address] Care Team Providers Care Director [employer] Name Role Phone Radha Lehman Primary Care Provider UnavailDr. Alistair Gilbert Unavailable [phone] [employer]Migration, Provider Unavailable Unavailab le Allergies Allergen (clinical drug ingredient) Drug/Non Drug Allergy documented on EMR Reaction Allergy Type Onset Date Status meperidine Demerol vomiting Drug Allergy Active penicillin V Penicillin V Potassium rash Drug Allergy Active REASON FOR VISIT [facility] To [facility] Conversion Encounter Medications Medication SIG (Take, Route, Frequency, Duration) Notes Start Date End Date Status Pantoprazole Sodium 40 MG 1 tab(s) orally once a day Active Farxiga 10 MG 1 tab(s) orally once a day Active Pioglitazone HCl 30 MG 1 tab(s) orally once a day Active metFORMIN HCl ER 500 MG 1 tab(s) orally once a day Active Lisinopril 40 MG 1 tab(s) orally once a day Active Co Q 10 100 MG 1 cap(s) orally once a day Active Fish Oil 500 MG 1 cap(s) orally once a day Active Omeprazole 20 MG 1 cap(s) orally once a day Active Rosuvastatin Calcium 10 MG 1 tab(s) orally once a day Active Ezetimibe 10 MG 1 tab(s) orally once a day Active Ibuprofen 400 MG 1 tab(s) orally every 6 hours Active Aspirin 81 MG 1 tab(s) chewed once a day Active Colace 100 MG 1 cap(s) orally 2 times a day Active Mucinex 600 MG 1 tab(s) orally every 12 hours Active Tums 500 MG 1 tab(s) chewed once a day Active Ferrous Sulfate *Please review a nd pick correct strength-formulatio n from Medispan options. If intended option is not shown, discontinue and re-order from Quick Search* Active Encounters Encounter Location Date Provider Diagnosis [address] [address] 11/25/2023 Provider ZZ-Migration Plan Of Treatment No Information Progress Notes * Mary BHANDARIDOB:1955 (69 yo F)Acc No.[id number]:11/25/2023 Patient: Mary PALAFOX Provider: Brannon Rojo :1955 A ge:68 Y S ex:Female Date:11/25/2023 Address:[address] [place], [place] [address] Pcp:Radha Lehman Subjective: * Chief Complaints: * 1 . Multum To Medispan Conversion Encounter. * Medical History: * Medications: T aking Ferrous Sulfate , Notes to Pharmacist: *Please review and pick correct strength-formulation from Medispan options. If intended option is not shown, discontinue and re-order from Quick Search*, Taking Tums 500 MG Tablet Chewable 1 tab(s) chewed once a day , Taking Colace 100 MG Capsule 1 cap(s) orally 2 times a day , Taking Mucinex 600 MG Tablet Extended Release 12 Hour 1 tab(s) orally every 12 hours , Taking Ibuprofen 400 MG Tablet 1 tab(s) orally every 6 hours , Taking Aspirin 81 MG Tablet Chewable 1 tab(s) chewed once a day , Taking Co Q 10 100 MG Capsule 1 cap(s) orally once a day , Taking Fish Oil 500 MG Capsule 1 cap(s) orally once a day , Taking Omeprazole 20 MG Capsule Delayed Release 1 cap(s) orally once a day , Taking Rosuvastatin Calcium 10 MG Tablet 1 tab(s) orally once a day , Taking Ezetimibe 10 MG Tablet 1 tab(s) orally once a day , Taking metFORMIN HCl ER 500 MG Tablet Extended Release 24 Hour 1 tab(s) orally once a day , Taking Lisinopril 40 MG Tablet 1 tab(s) orally once a day , Taking Farxiga 10 MG Tablet 1 tab(s) orally once a day , Taking Pioglitazone HCl 30 MG Tablet 1 tab(s) orally once a day , Taking Pantoprazole Sodium 40 MG Tablet Delayed Release 1 tab(s) orally once a day * Allergies: P enicillin V Potassium: rash - Side Effects, Demerol: vomiting - Side Effects. Objective: * Vitals: Assessment: Plan: * Treatment: * Billing Information: * Visit Code: * Procedure Codes: * Electronic signature of Keiko SCHAFFER-Migration on 01/25/2025 at 03:41 PM CDT Sign off status: Pending * Provider: Brannon smith Migration Date: 11/25/2023 Generated for Christine jarrell/Dylan/Vane on: 01/25/2025 03:41 PM CDT
--- OUTSIDE RECORDS SUMMARY | 2025-01-25 15:41 | XMS_ITS | Encounter Summary ---
Author Organization [facility] Address [facility] [place] [address] Care Team Providers Care Elevator Conductor Name Role Phone Kvng Wray MD Primary Care Provider U Emilee Daley APRN Primary Care Provider [phone] Genia Cortes PharmD Unavailable [phone] Zacarias Scott MD Unavailable [phone] Encounter Details Date Type Department Care Team (Late st Contact Info) Description 05/17/2022 Fugoot Message Enc [facility] General Surgery [address], [facility] [address] [place] [address] Boyd Taylor MD [address] [id number] Blood Work Question Social History Tobacco Use Types Packs/Day [...] Sex Assigned at Female 06/25/2024 11:30 AM TITLE SEARCH MANAGER Legal Sex Female 10:25 AM CDT Gender Identity Female 10/22/2021 9:50 AM CDT Sexual Orientation Not on file COVID-19 Exposure Response Date Recorded In the last 10 days, have yo u been in contact with someone who was confirmed or suspected to have Coronavirus/COVID-19? Unable to assess 05/19/2022 12:06 PM TITLE SEARCH MANAGER documented as of this encounter Progress Notes * Alex Quijano MA - 05/19/2022 11:53 AM CST LM for the patient to call me back. E SEARCH MANAGER documented in this encounter Plan of Treatment Upcoming Encounters Date Type Department Care Team (Late st Contact Info) Description 02/14/2025 11:20 AM CDT Office Visit [facility] Family & Internal Medicine [facility] [address] [place] [address] Emilee Lehman APRN [address] [phone] 03/28/2025 10:28 AM CDT Hospital Encounter [facility] [address] [place] [address] Rodrigo Lomeli MD [address] [address] 03/28/2025 10:28 AM CDT - 03/28/2025 10:50 AM CDT Surgery [facility] [address] [place] [address] Rodrigo Lomeli MD [address] [phone] EGD 11/14/2025 10:20 AM CDT Office Visit [facility] Multispecialty Care - [facility] 3 [facility], [address] [place] [address] Cheryl Hancock MD 3 [place] [address] Scheduled Procedures Name Priority Associated Diagnoses Date/Ti [...] Rule Out 06/02/2023 06/02/2023 06/02/2023 10:09 AM TITLE SEARCH MANAGER Influenza - Seasonal 06/02/2023 06/02/2023 024 12:32 AM TITLE SEARCH MANAGER COVID-19 Rule Out 06/30/2023 06/30/2023 06/30/2023 4:38 PM TITLE SEARCH MANAGER Influenza - Seasonal 06/30/2023 06/30/2023 024 12:32 AM TITLE SEARCH MANAGER COVID-19 Rule Out 11/21/2023 11/21/2023 11/21/2023 12:22 PM CDT Influenza - Seasonal 11/21/2023 11/21/2023 024 12:33 AM CDT COVID-19 Rule Out 07/17/2024 07/17/2024 07/17/2024 1:58 PM TITLE SEARCH MANAGER Influenza - Seasonal 07/17/2024 07/17/2024 025 12:32 AM TITLE SEARCH MANAGER Assessment Noted Time PHQ-9 Depression Total Score: 1 02/17/20 21 10:04 AM CDT documented as of this encounter Care Teams Elevator Conductor Relationship Specialty Start Date End Date vKng Wray MD PCP - General INTERNAL MEDICINE 10/26/20 08/03/22 Emilee Lehman APRN [address] [place], [place] [phone] PCP - General NURSE PRACTITIONER 08/04/22 Genia Cortes, PharmD [address] [place] [address] Retort Cooler (Ambulatory) Pharmacist 01/02/23 02/26/23 [place] [address] [place], [place] [phone] Consulting Physician CARDIOVASCULAR DISEASE 11/20/24 documented as of this encounter
--- OUTSIDE RECORDS SUMMARY | 2025-01-25 15:41 | XMS_ITS | Encounter Summary ---
Author Organization [facility] Address [facility] [place] [address] Care Team Providers Care Beadworker Name Role Phone Emilee Lehman Janet LAFLEUR Primary Care Provider [phone] Zacarias Scott MD Unavailable [phone] Encounter Details Date Type Department Care Team (Late st Contact Info) Description 12/31/2024 [employer] Message [facility] [address] [place] [address] Zacarias Scott MD [address] [address] Question About Test Preparation Social History Tobacco Use Types Packs/Day Years [...] Sex Assigned at Female 06/25/2024 11:30 AM WARP CLAMPER Legal Sex Female 10:25 AM CDT Gender Identity Female 10/22/2021 9:50 AM CDT Sexual Orientation Not on file documented as of this encounter Functional Status * RETIRED Are you deaf or do you have serious difficulty hearing Answer Date of Assessment Author Status No 06/15/2022 7:00 PM WARP CLAMPER Activ e * RETIRED Are you blind or do you have serious difficulty seeing, even when wearing glasses? Answer Date of Assessment Author Status No 06/15/2022 7:00 PM WARP CLAMPER Activ e * Do you have serious difficulty walking or climbing stairs? Answer Date of Assessment Author Status No 06/15/2022 7:00 PM WARP CLAMPER Eufemia Jimenez RN Active * Do you [...] Description 02/14/2025 11:20 AM CDT Office Visit [facility] Medical Group Family & Internal Medicine [facility] [address] [place] [address] Emilee Lehman, BIOFUELS PRODUCT DEVELOPMENT MANAGER [address] [facility] [address] [place] [address] 03/28/2025 10:28 AM CDT Hospital Encounter [facility] [address] [place], [place] [phone] Rodrigo Lomeli MD [address] [place] [address] 03/28/2025 10:28 AM CDT - 03/28/2025 10:50 AM CDT Surgery [facility] [address] [place] [address] Rodrigo Lomeli MD 3 [facility] [address] [place] [address] EGD 11/14/2025 10:20 AM CDT Office Visit [facility] Medical Group Multispecialty Care - [facility] [address] [facility], [address] [place] [address] Cheryl Hancock MD 3 [place] [address] Scheduled Procedures Name Priority Associated Diagnoses Date/Ti [...] < 7 Result Component 8(08/09/2024 12:00 AM WARP CLAMPER) Genia Atkins, PharmD documented as of this encounter Visit Diagnoses Not on filedocumented in this encounter Additional Health Concerns Infection Onset Date Last Indicated Resolved Time MRSA Comment:02/17/21 +MRSA Nasal 06/09/22 negative nares (JK) 02/18/2021 02/18/2021 Assessment Noted Time PHQ-9 Depression Total Score: 0 07/05/19 25 2:58 PM WARP CLAMPER documented as of this encounter Care Teams Beadworker Relationship Specialty Start Date End Date Emilee Lehman APRN [address] [place] [address] PCP - General NURSE PRACTITIONER 08/04/22 [place] [address] [address] [place] [address] Consulting Physician CARDIOVASCULAR DISEASE 11/20/24 documented as of this encounter
--- OUTSIDE RECORDS SUMMARY | 2025-01-25 15:41 | XMS_ITS | Encounter Summary ---
Author Organization [facility] Address [address] [place] [address] Care Team Providers Care Paperhanger And Painter Name Role Phone Emilee Lehman APRN Primary Care Provider [phone] Genia Cortes PharmD Unavailable [phone] Zacarias Scott MD Unavailable [phone] Encounter Details Date Type Department Care Team (Late st Contact Info) Description 11/22/2022 [employer] Message Enc [facility] Medical Group Family & Internal Medicine [address] [address] [facility] Social History Tobacco Use Types Packs/Day Years [...] Date Recorded Patient Health Questionnaire-2 Score 0 11/04/2022 Comments No Sex and Gender Information Value Date Recorded Sex Assigned at Female 06/25/2024 11:30 AM BANKING OFFICER Legal Sex Female 10:25 AM CDT Gender Identity Female 10/22/2021 9:50 AM CDT Sexual Orientation Not on file COVID-19 Exposure Response Date Recorded In the last 10 days, have yo u been in contact with someone who was confirmed or suspected to have Coronavirus/COVID-19? No / Unsure 11/17/2022 12:47 PM CDT documented as of this encounter Functional Status * RETIRED Are you deaf or do you have serious difficulty hearing Answer Date of Assessment Author Status No 06/15/2022 7:00 PM BANKING OFFICER Activ e * RETIRED Are you blind or do you have serious difficulty seeing, even when wearing glasses? Answer Date of Assessment Author Status No 06/15/2022 7:00 PM BANKING OFFICER Activ e * Do you have serious [...] Description 02/14/2025 11:20 AM CDT Office Visit [facility] Medical Group Family & Internal Medicine [facility] [address] [place] [address] Emilee Lehman APRN [address] [address] 03/28/2025 10:28 AM CDT Hospital Encounter [facility] [address] [place], [place] [phone] Rodrigo Lomeli MD 3 [facility] [address] [place] [address] 03/28/2025 10:28 AM CDT - 03/28/2025 10:50 AM CDT Surgery [facility] [address] [place] [address] Rodrigo Lomeli MD 3 [facility] [address] [place] [address] EGD 11/14/2025 10:20 AM CDT Office Visit [facility] Medical Group Multispecialty Care - [address], [address] [place] [address] Cheryl Hancock MD 3 [place] [address] Scheduled Procedures Name Priority Associated Diagnoses Date/Ti [...] Rule Out 06/02/2023 06/02/2023 06/02/2023 10:09 AM BANKING OFFICER Influenza - Seasonal 06/02/2023 06/02/2023 024 12:32 AM BANKING OFFICER COVID-19 Rule Out 06/30/2023 06/30/2023 06/30/2023 4:38 PM BANKING OFFICER Influenza - Seasonal 06/30/2023 06/30/2023 024 12:32 AM BANKING OFFICER COVID-19 Rule Out 11/21/2023 11/21/2023 11/21/2023 12:22 PM CDT Influenza - Seasonal 11/21/2023 11/21/2023 024 12:33 AM CDT COVID-19 Rule Out 07/17/2024 07/17/2024 07/17/2024 1:58 PM BANKING OFFICER Influenza - Seasonal 07/17/2024 07/17/2024 025 12:32 AM BANKING OFFICER Assessment Noted Time PHQ-9 Depression Total Score: 2 08/04/19 10:35 AM BANKING OFFICER documented as of this encounter Care Teams Paperhanger And Painter Relationship Specialty Start Date End Date Emilee Lehman APRN [address] [facility] [address] [place] [address] PCP - General NURSE PRACTITIONER 08/04/22 Genia Cortes, PharmD [address] [place] [address] Supervisor Cigar Making Machine (Ambulatory) Pharmacist 01/02/23 02/26/23 [place] [address] [place], [place] [id number] Consulting Physician CARDIOVASCULAR DISEASE 11/20/24 documented as of this encounter
--- OUTSIDE RECORDS SUMMARY | 2025-01-25 15:41 | XMS_ITS | Encounter Summary ---
Author Organization [facility] Address [address] [place] [address] Care Team Providers Care Veterans Services Specialist Name Role Phone Emilee Lehman APRN Primary Care Provider [phone] Genia Cortes PharmD Unavailable [phone] Zacarias Scott MD Unavailable [phone] Encounter Details Date Type Department Care Team (Late st Contact Info) Description 12/07/[address] [facility] - [facility] [address] [place] [address] Aníbal, [facility] Provider Air Quality Message Social History Tobacco Use Types Packs/Day Years [...] Sex Assigned at Female 06/25/2024 11:30 AM ANIMAL CAREGIVER Legal Sex Female 10:25 AM CDT Gender [...] Assessment Author Status No 06/15/2022 7:00 PM ANIMAL CAREGIVER Activ e * RETIRED Are you blind or do you have serious difficulty seeing, even when wearing glasses? Answer Date of Assessment Author Status No 06/15/2022 7:00 PM ANIMAL CAREGIVER Activ e * Do you have serious [...] 11:20 AM CDT Office Visit [facility] Family & Internal Medicine [facility] [address] [place] [address] Emilee Lehman APRN [address] [address] 03/28/2025 10:28 AM CDT Hospital Encounter [facility] [address] [place] [address] Rodrigo Lomeli MD 3 [facility] [address] [place] [address] 03/28/2025 10:28 AM CDT - 03/28/2025 10:50 AM CDT Surgery [facility] Surgery [address] [place] [address] Rodrigo Lomeli MD 3 [facility] [address] [place] [address] EGD 11/14/2025 10:20 AM CDT Office Visit [facility] Multispecialty Care - [address], [address] [place] [address] Cheryl Hancock MD 3 [place] [address] Scheduled Procedures Name Priority Associated Diagnoses Date/Ti [...] Rule Out 06/02/2023 06/02/2023 06/02/2023 10:09 AM ANIMAL CAREGIVER Influenza - Seasonal 06/02/2023 06/02/2023 024 12:32 AM ANIMAL CAREGIVER COVID-19 Rule Out 06/30/2023 06/30/2023 06/30/2023 4:38 PM ANIMAL CAREGIVER Influenza - Seasonal 06/30/2023 06/30/2023 024 12:32 AM ANIMAL CAREGIVER COVID-19 Rule Out 11/21/2023 11/21/2023 11/21/2023 12:22 PM CDT Influenza - Seasonal 11/21/2023 11/21/2023 024 12:33 AM CDT COVID-19 Rule Out 07/17/2024 07/17/2024 07/17/2024 1:58 PM ANIMAL CAREGIVER Influenza - Seasonal 07/17/2024 07/17/2024 025 12:32 AM ANIMAL CAREGIVER Assessment Noted Time PHQ-9 Depression Total Score: 2 08/04/19 10:35 AM ANIMAL CAREGIVER documented as of this encounter Care Teams Veterans Services Specialist Relationship Specialty Start Date End Date Emilee Lehman APRN [address] [place], [place] [phone] PCP - General NURSE PRACTITIONER 08/04/22 Genia Cortes, PharmD [address] [place] [address] Litigation Partner (Ambulatory) Pharmacist 01/02/23 02/26/23 [place] [address] [address] [place] [address] Consulting Physician CARDIOVASCULAR DISEASE 11/20/24 documented as of this encounter
--- OUTSIDE RECORDS SUMMARY | 2025-01-25 15:41 | XMS_ITS | Encounter Summary ---
Author Organization [facility] Address [facility] [place] [address] Care Team Providers Care Wine Merchant Name Role Phone Emilee Lehman Janet LAFLEUR Primary Care Provider [phone] Zacarias Scott MD Unavailable [phone] Encounter Details Date Type Department Care Team (Late st Contact Info) Description 01/14/2025 Endosense Message [facility] [address] [place] [phone] Zacarias Scott MD [address] [address] Question About Taking Medications Before Stress Echo Social History Tobacco Use Types Packs/Day Years [...] Sex Assigned at Female 06/25/2024 11:30 AM TOP LIFT COMPRESSER Legal Sex Female 10:25 AM CDT Gender Identity Female 10/22/2021 9:50 AM CDT Sexual Orientation Not on file documented as of this encounter Functional Status * RETIRED Are you deaf or do you have serious difficulty hearing Answer Date of Assessment Author Status No 06/15/2022 7:00 PM TOP LIFT COMPRESSER Activ e * RETIRED Are you blind or do you have serious difficulty seeing, even when wearing glasses? Answer Date of Assessment Author Status No 06/15/2022 7:00 PM TOP LIFT COMPRESSER Activ e * Do you have serious difficulty walking or climbing stairs? Answer Date of Assessment Author Status No 06/15/2022 7:00 PM TOP LIFT COMPRESSER Eufemia Jimenez RN Active * Do you have difficulty dressing or bathing? Answer Date of Assessment Author Status No 06/15/2022 7:00 PM TOP LIFT COMPRESSER Eufemia Jimenez, NADIA Active * Because of a physical, mental, or emotional condition, do you have difficulty doing errands alone such as visiting a doctor's office or shopping? Answer Date of Assessment Author Status No 06/15/2022 7:00 PM TOP LIFT COMPRESSER Eufemia Jimenez RN Active documented as of this encounter Mental Status * Because of a physical, mental, or emotional condition, do you have serious difficulty concentrating, remembering, or making decisions? Answer Entry Date Author Status No 06/15/2022 7:00 PM TOP LIFT COMPRESSER Eufemia Jimenez RN Active documented in this encounter Progress Notes * AZUCENA Watts - 01/15/2025 3:04 PM CDT Can you call her? documented in this encounter Plan of Treatment Upcoming Encounters Date Type Department Care Team (Late st Contact Info) Description 02/14/2025 11:20 AM CDT Office Visit [facility] Family & Internal Medicine [facility] [address] [place] [address] Emilee Lehman APRN [address] [place] [address] 03/28/2025 10:28 AM CDT Hospital Encounter [facility] [address] [place] [address] Rodrigo Lomeli MD 3 [facility] [address] [place] [address] 03/28/2025 10:28 AM CDT - 03/28/2025 10:50 AM CDT Surgery [facility] [address] [place] [address] Rodrigo Lomeli MD [address] [place] [address] EGD 11/14/2025 10:20 AM CDT Office Visit [facility] Multispecialty Care - [address], [address] [place] [address] Cheryl Hancock MD [address] [place] [address] Scheduled Procedures Name Priority Associated Diagnoses Date/Ti [...] < 7 Result Component 8(08/09/2024 12:00 AM TOP LIFT COMPRESSER) Genia Atkins, PharmD documented as of this encounter Visit Diagnoses Not on filedocumented in this encounter Additional Health Concerns Infection Onset Date Last Indicated Resolved Time MRSA Comment:02/17/21 +MRSA Nasal 06/09/22 negative nares (JK) 02/18/2021 02/18/2021 Assessment Noted Time PHQ-9 Depression Total Score: 0 07/05/19 25 2:58 PM TOP LIFT COMPRESSER documented as of this encounter Care Teams Wine Merchant Relationship Specialty Start Date End Date Emilee Lehman APRN [address] [place] [address] PCP - General NURSE PRACTITIONER 08/04/22 [place] [address] [address] [address] Consulting Physician CARDIOVASCULAR DISEASE 11/20/24 documented as of this encounter
--- OUTSIDE RECORDS SUMMARY | 2025-01-25 15:41 | XMS_ITS | Encounter Summary ---
Author Organization [facility] Address [address] [facility] [place] [address] Care Team Providers Care Outside Sales Manager Name Role Phone Zulay Carter MD Primary Care Provider [phone] Wes Frazier MD Unavailable [phone] Cielo Connell MD Unavailable [phone] Emiel Carias MD Unavailable [phone] Last Paul MD Unavailable [phone] Martha Ziegler MD Unavailable [phone] Vinnie Gomez MD Unavailable Mi Bejarano MD Unavailable Unavailable Yakelin Kelley MD Unavailable Zulay Carter MD Unavailable [phone] Lisa Prado MD Unavailable [phone] Tobi Crews MD Unavailable Aditi Leon LEASING SALES CONSULTANT-CAN TOP SETTER Unavailable [phone] Kvng Wray MD Primary Care Provider + Emilee Lehman LEASING SALES CONSULTANT-CAN TOP SETTER Primary Care Provider Ariella Lee MD Unavailable [phone] Encounter Details Date Type Department Care Team (Late Contact Info) Description 03/18/2016 [facility] Outpatient Visit [facility] - Family Medicine [address] [facility] [address] [place] [address] [place] [address] [facility] [address] [place] [address] Social History Tobacco Use Types Packs/Day Years Used Date Smoking Tobacco: Former Cigarettes 1 19 0 11/25/1973 - 11/25/1992 Smokeless Tobacco: Never Alcohol Use Standard Drinks/Week Comments No 0 (1 standard drink = 0.6 oz pur e alcohol) rare Comments No Sex and Gender Information Value Date Recorded Sex Assigned at Female 05/27/2020 7:00 AM HIGH SCHOOL ACADEMIC COACH Legal Sex Female 6:00 AM HIGH SCHOOL ACADEMIC COACH Gender Identity Female 05/27/2020 7:00 AM HIGH SCHOOL ACADEMIC COACH Sexual Orientation Straight 03/06/2023 11 :11 AM CDT 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 Not on file Not on file Not on file documented as of this encounter Plan of Treatment Upcoming Encounters Date Type Department Care Team (Late Contact Info) Description 03/03/2025 10:40 AM CDT Office Visit [facility] - Hematology/Oncology [address] [place] [phone] Ariella Lee MD [address] [address] 08/11/2025 10:00 AM HIGH SCHOOL ACADEMIC COACH Appointment [facility] [address] [place] [address] 09/16/2025 11:00 AM CDT Appointment [facility] [address] [place] [address] 09/17/2025 10:30 AM CDT Office Visit [facility] Pulmonology [address] [facility] [address] [place] [address] [place] [address] [facility] [address] [place] [address] documented as of this encounter Goals Goal Patient Goal Type Associated Problems Recent Progress Patient-Stated? Author Blood Pressure < 140/90 Blood Pressure 132/72(2024 10:54 AM CDT) No Mikaela Albarran APRN-CNP HEMOGLOBIN A1C < 7.0 Result Component 8.1( 0 8:38 AM CDT) No Mikaela Albarran APRN-CNP documented as of this encounter Visit Diagnoses Not on filedocumented in this encounter Care Teams Outside Sales Manager Relationship Specialty [place] [address] [employer] [address] [place] [address] PCP - General 07/10/08 11/12/20 [place] [address] [address] [address] [place] [address] PCP - Attributed-MSSP 11/10/18 09/09/20 Aditi Leon APRN-CAN TOP SETTER [address] [employer] [address] [place] [address] PCP - Attributed-MSSP 09/10/20 07/01/21 Kvng Wray MD [address] [place] [address] PCP - General 11/13/20 09/12/23 Emilee Lehman LEASING SALES CONSULTANT-CAN TOP SETTER [address] [facility] [address] [place] [address] PCP - General 09/13/23 [place] [address] [employer] [address] [place], [place] [id number] Pulmonary Disease 01/10/11 [place] [address] [place] [address] Ophthalmology 08/09/12 [place] [address] [place] [address] Otolaryngology 02/03/14 [place] [address] [place] [address] Gastroenterology 02/03/14 [place] [address] [place] [address] Hand Surgery 02/03/14 [place] [address] [place] [address] Hematology 03/09/16 08/23/18 [place] [address] [place] [address] Hematology and Oncology 03/08/1708/23 [place] [address] [place] [id number] Hematology and Oncology 08/24/18 [place] [address] [place] [address] General Surgery 02/18/19 [place] [address] [place] [phone] Rheumatology 05/28/20 Ariella Lee MD [address] [address] Hematology and Oncology 03/04/24 documented as of this encounter
--- OUTSIDE RECORDS SUMMARY | 2025-01-25 15:41 | XMS_ITS | Encounter Summary ---
Author Organization [facility] Address [address] [place] [address] Care Team Providers Care Delimer Name Role Phone Emilee Lehman APRN Primary Care Provider [phone] Zacarias Scott MD Unavailable [phone] Encounter Details Date Type Department Care Team (Late st Contact Info) Description 08/27/2024 Room 8 Studiot Message Enc [facility] [address] [place] [address] Emilee Lehman APRN [address] [address] Question about Losartin with HCTZ Social History Tobacco Use Types Packs/Day Years [...] Date Recorded Patient Health Questionnaire-2 Score 0 07/05/2024 Comments No Sex and Gender Information Value Date Recorded Sex Assigned at Female 06/25/2024 11:30 AM BUILDINGS AND GROUNDS SUPERINTENDENT Legal Sex Female 10:25 AM CDT Gender Identity Female 10/22/2021 9:50 AM CDT Sexual Orientation Not on file documented as of this encounter Functional Status * RETIRED Are you deaf or do you have serious difficulty hearing Answer Date of Assessment Author Status No 06/15/2022 7:00 PM BUILDINGS AND GROUNDS SUPERINTENDENT Activ e * RETIRED Are you blind or do you have serious difficulty seeing, even when wearing glasses? Answer Date of Assessment Author Status No 06/15/2022 7:00 PM BUILDINGS AND GROUNDS SUPERINTENDENT Activ e * Do you have serious difficulty walking or climbing stairs? Answer Date of Assessment Author Status No 06/15/2022 7:00 PM BUILDINGS AND GROUNDS SUPERINTENDENT Eufemia Jimenez RN Active * Do you have difficulty dressing or bathing? Answer Date of Assessment Author Status No 06/15/2022 7:00 PM BUILDINGS AND GROUNDS SUPERINTENDENT Eufemia Jimenez, NADIA Active * Because of a physical, mental, or emotional condition, do you have difficulty doing errands alone such as visiting a doctor's office or shopping? Answer Date of Assessment Author Status No 06/15/2022 7:00 PM BUILDINGS AND GROUNDS SUPERINTENDENT Eufemia Jiemnez RN Active documented as of this encounter Mental Status * Because of a physical, mental, or emotional condition, do you have serious difficulty concentrating, remembering, or making decisions? Answer Entry Date Author Status No 06/15/2022 7:00 PM BUILDINGS AND GROUNDS SUPERINTENDENT Eufemia Jimenez RN Active documented in this encounter Progress Notes * Emilee Lehman APRN - 08/27/2024 3:28 PM CDT Ok to resume losartan- HCTZ documented in this encounter Plan of Treatment Upcoming Encounters Date Type Department Care Team (Late st Contact Info) Description 02/14/2025 11:20 AM CDT Office Visit [facility] Family & Internal Medicine [address] [address] Emilee Lehman APRN [address] [place], [place] [id number] 03/28/2025 10:28 AM CDT Hospital Encounter [facility] [address] [place] [address] Rodrigo Lomeli MD 3 [facility] [address] [place] [address] 03/28/2025 10:28 AM CDT - 03/28/2025 10:50 AM CDT Surgery [facility] [address] [place] [address] Rodrigo Lomeli MD 3 [facility] [address] [place] [address] EGD 11/14/2025 10:20 AM CDT Office Visit [facility] Multispecialty Care - [facility] [address] [facility], [address] [place] [address] Cheryl Hancock MD [address] [place] [address] Scheduled Procedures Name Priority Associated Diagnoses Date/Ti [...] < 7 Result Component 8(08/09/2024 12:00 AM BUILDINGS AND GROUNDS SUPERINTENDENT) Genia Atkins, PharmD documented as of this encounter Visit Diagnoses Not on filedocumented in this encounter Additional Health Concerns Infection Onset Date Last Indicated Resolved Time MRSA Comment:02/17/21 +MRSA Nasal 06/09/22 negative nares (JK) 02/18/2021 02/18/2021 Assessment Noted Time PHQ-9 Depression Total Score: 0 07/05/19 25 2:58 PM BUILDINGS AND GROUNDS SUPERINTENDENT documented as of this encounter Care Teams Delimer Relationship Specialty Start Date End Date Emilee Lehman APRN [address] [place] [address] PCP - General NURSE PRACTITIONER 08/04/22 [place] [address] [address] [address] Consulting Physician CARDIOVASCULAR DISEASE 11/20/24 documented as of this encounter
--- OUTSIDE RECORDS SUMMARY | 2025-01-25 15:41 | XMS_ITS | Clinical Summary ---
Author Organization [facility] Address [address] [place] [address] Care Team Providers Care Polysom Tech Name Role Phone Emilee Lehman APRN Primary Care Provider [phone] Zacarias Scott MD Unavailable [phone] Allergies Active Allergy Reactions Criticality Noted Date Comments Lisinopril Swelling,Angioedema High 11/23/2023 Facial and lip swelling Meperidine Nausea and Vomiting Low 10/13/1980 Penicillin G Unknown 01/13/2022 Penicillins Rash,Hives Medium 10/13/1980 Prochlorperazine Rash,Unknown Medium 10/13/1981 Medications * This document contains information received from the source organization and may not represent a complete record from that organization. denosumab 60 MG/ML injection Inject 1 Dose into the skin every 6 (six) months. Active omega-3 acid 1000 MG capsule Take 1 capsule (1,000 mg total) by mouth 2 (two) times daily. Active multivitamin tablet Take 1 tablet by mouth daily. Active umeclidinium-vilan terol (ANORO ELLIPTA) 62.5-25 MCG/INH inhaler INHALE 1 PUFF BY MOUTH EVERY DAY 09/11/19 21 Active Coenzyme Q10 (COQ-10) 100 MG Cap Take 200 mg by mouth daily. 04/12/20 21 Active Aspirin 81 MG Cap Take 81 mg by mouth daily. Active ferrous sulfate EC 324 (65 Fe) MG tablet Take 1 tablet (324 mg total) by mouth daily with breakfast. Active Blood Pressure Monitoring (BLOOD PRESSURE MONITOR/L CUFF) MiscIndications:Es sential (primary) hypertension Take blood pressure as directed 1 each 05/25/20 23 Active OneTouch Delica Lancets 33G MiscIndications:Ty pe 2 diabetes mellitus without complication, without long-term current use of insulin ([facility]),Uncontrol led type 2 diabetes mellitus with hyperglycemia ([facility]) 2 Lancets by Does not apply route 2 (two) times daily. 100 each 1 12/25/19 24 Active OMEPRAZOLE OR Take 40 mg by mouth every evening. Active famotidine (PEPCID) 40 MG tablet daily. 02/02/20 24 Active docusate sodium (COLACE) 50 MG capsule Take 1 capsule (50 mg total) by mouth 2 (two) times daily. Active Semaglutide (RYBELSUS) 14 MG TabIndications:Claire betes Mellitus Take 14 mg by mouth daily. Indications: Diabetes 90 tablet 1 06/03/20 24 Active fluticasone propionate (FLONASE) 50 MCG/ACT nasal spray 2 sprays by Each Nostril route daily. Uses in summer, spring and fall Active albuterol sulfate HFA 108 (90 Base) MCG/ACT inhalerIndications :Influenza B Inhale 2 puffs into the lungs every 6 (six) hours as needed. 18 g 07/17/19 25 Active ONETOUCH ULTRA test stripIndications:T ype 2 diabetes mellitus without complication, without long-term current use of insulin ([facility]) Use as instructed to check blood sugars Daily 100 strip 2 10/22/19 25 Active ondansetron (ZOFRAN-ODT) 4 MG disintegrating tablet Take 1 tablet (4 mg total) by mouth every 8 (eight) hours as needed for Nausea. 08/21/19 25 Active ezetimibe (ZETIA) 10 MG tabletIndications: Mixed hyperlipidemia Take 1 tablet (10 mg total) by mouth daily. 90 tablet 12/03/19 25 Active pantoprazole EC (PROTONIX) 40 MG tabletIndications: Gastroesophageal reflux disease, unspecified whether esophagitis present Take 1 tablet (40 mg total) by mouth daily. 90 tablet 1 12/03/19 25 Active Lancets (ONETOUCH ULTRASOFT) lancetsIndications :Type 2 diabetes mellitus without complication, without long-term current use of insulin (CMS/HCC HHS/HCC) 1 each by Other route as needed. Use as instructed 100 each 1 12/12/19 25 Active rosuvastatin (CRESTOR) 10 MG tabletIndications: Mixed hyperlipidemia Take one tablet twice weekly 90 tablet 01/07/20 25 Active FARXIGA 10 MG tabletIndications: Uncontrolled type 2 diabetes mellitus with hyperglycemia (CMS/HCC HHS/HCC) Take 1 tablet (10 mg total) by mouth daily. 30 tablet 3 01/07/20 25 Active losartan-hydroCHLO ROthiazide (HYZAAR) 50-12.5 MG tabletIndications: Essential hypertension Take 1 tablet by mouth daily. 90 tablet 1 01/07/20 25 Active pioglitazone (ACTOS) 30 MG tabletIndications: Type 2 diabetes mellitus without complication, without long-term current use of insulin (CMS/HCC HHS/HCC) Take 1 tablet (30 mg total) by mouth daily. 90 tablet 3 01/14/20 25 Active albuterol sulfate HFA 108 (90 Base) MCG/ACT inhaler Inhale 2 puffs into the lungs every 4 (four) hours as needed for Wheezing or Shortness of breath. 01/21/20 20 025 Discontin ued(Thera py completed ) pioglitazone (ACTOS) 30 MG tabletIndications: Type 2 diabetes mellitus without complication, without long-term current use of insulin (CMS/HCC HHS/HCC) Take 1 tablet (30 mg total) by mouth daily. 90 tablet 3 01/07/20 24 025 Discontin ued(Reord er) rosuvastatin (CRESTOR) 10 MG tabletIndications: Mixed hyperlipidemia Take one tablet twice weekly 90 tablet 03/21/20 24 025 Discontin ued(Reord er) FARXIGA 10 MG tabletIndications: Uncontrolled type 2 diabetes mellitus with hyperglycemia (CMS/HCC HHS/HCC) Take 1 tablet (10 mg total) by mouth daily. 30 tablet 3 08/16/19 25 025 Discontin ued(Reord er) losartan-hydroCHLO ROthiazide (HYZAAR) 50-12.5 MG tabletIndications: Essential hypertension Take 1 tablet by mouth daily. 90 tablet 1 10/09/19 25 025 Discontin ued(Reord er) Active Problems Problem Noted Date Diagnosed Date Polyneuropathy due to type 2 diabetes mellitus ([facility]) 11/07/2024 Enteritis of small intestine due [...] left breast in female, estrogen receptor negative (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) 11/28/2023 Carpal tunnel syndrome 11/28/2023 Sacroiliitis 08/28/2023 Facet hypertrophy of lumbar region 08/28/2023 Foraminal stenosis of lumbar region 08/28/2023 Degeneration of lumbar intervertebral disc 06/27 Iron deficiency 04/03/2023 Chronic obstructive pulmonary disease ([facility]) 11/04/2022 Chronic bronchitis ([facility]) 11/04/2022 Biliary dyskinesia 05/02/2022 Overview (05/02/2022): Added automatically from request for surgery [id number] Sciatica 03/09/2022 Lumbosacral disc herniation 03/09/2022 Left sciatic nerve pain 02/01/2022 Chronic rhinitis 07/30/2021 Anemia, unspecified type 02/23/2021 Uncontrolled type 2 diabetes mellitus with hyperglycemia ([facility]) 02/09/2021 Age related osteoporosis 12/21/2020 Type II diabetes mellitus ([facility]) 10/10 BMI 29.0-29.9,adult 10/26/2020 Hx of breast cancer 10/26/2020 Elevated cholesterol 07/10/2008 Overview (06/03/2024): Pravachol- muscle aches 06/2009 Also tried Lipitor in the past. Adjustment reaction 09/17/2007 Benign neoplasm of colon 10/20/2006 Esophageal reflux 07/21/2006 Osteoarthrosis 07/22/2005 Essential hypertension 07/30/2004 Resolved Problems Problem Noted Date Diagnosed Date Resolved Date Care Management 01/02/2023 02/27/2023 Cortical age-related cataract of both eyes 02/01/2022 04/03/2023 Preop exam for internal medicine 02/01/2022 05/30/2022 Age-related nuclear cataract of both eyes 07/05/2021 05/07/2023 Acute recurrent maxillary sinusitis 04/29/2021 07/05/2021 Chest pain on exertion 02/23/202108/04 Nose colonized with MRSA 02/23/202101/2023 Right upper quadrant abdominal pain 10/19/2020 04/29/2021 Encounters Date Type Department Care Team Description 01/22/2025 1:55 PM CDT - 01/22/2025 11:59 PM CDT Hospital Encounter [facility] Ultrasound [address] [place] [address] Genia Herndon FNP Arrived Discharge Disposition: Home or Self Care (Routine Discharge) 01/22/2025 Travel 01/16/2025 9:16 AM CDT - 01/16/2025 11:59 PM CDT Hospital Encounter [facility] Cardiopulmonary Services [address] [place] [address] Genia Herndon FNP Discharge Disposition: Home or Self Care (Routine Discharge) 01/16/2025 9:16 AM CDT - 01/16/2025 11:59 PM CDT Hospital Encounter [facility] Nuclear Medicine [address] [place] [address] Genia Herndon FNP Discharge Disposition: Home or Self Care (Routine Discharge) 01/16/2025 Results Follow-Up [facility] [address] [phone] Genia Herndon FNP [place] PHARM NUC STRESS TEST 1 DAY W TRACING 01/16/2025 Travel 01/14/2025 MyChart Message Enc [address] [phone] Zacarias Scott MD Question About Taking Medications Before Stress Echo 12/31/2024 MyChart Message Enc [address] [phone] Zacarias Scott MD Question About Test Preparation 12/26/2024 11:15 AM CDT Office Visit [address] [phone] Genia Herndon FNP Coronary Artery Disease 12/26/2024 Travel 12/23/2024 12:44 PM CDT - 12/23/2024 12:58 PM CDT Hospital Encounter [facility] [address] [place] [address] Emilee Lehman APRN Discharge Disposition: Home or Self Care (Routine Discharge) 12/23/2024 Telephone [facility] One Day Services [address] [place] [phone] Emilee Lehman APRN Orders (Prolia order) 12/23/2024 Travel 12/11/2024 MyChart Message Enc [facility] [address] [phone] Emilee Lehman APRN Refill of OneTouch Lancets 11/29/2024 Orders Only [facility] [address] [phone] Emilee Lehman APRN 11/25/2024 [facility] Only [facility] Emergency Department - [address], [address] [place] [phone] Adria Lomeli MD 11/25/2024 Telephone [facility] - [address] [place] [phone] Adria Lomeli MD Schedule Procedure 11/25/[address] [facility] One Day Services [id number] [place] [address] Adria Lomeli MD Schedule Surgery (Pt will need to be rescheduled for her EGD per anesthesia. Pt did not stop her Farxiga. Pt was on for 11/27. Pt was scheduled for 11/27. ) 11/20/2024 10:32 AM CDT - 11/20/2024 11:59 PM CDT Hospital Encounter [facility] Cardiopulmonary Services [id number] [place] [phone] Adria Lomeli MD Discharge Disposition: Home or Self Care (Routine Discharge) 11/20/2024 Travel 11/19/2024 11:59 PM CDT An[address]hesia Event [facility] Surgery [id number] [place] [phone] Jayla Lopes CRNA 11/14/2024 10:00 AM CDT [facility] - [facility] [address] [facility], [address] [place] [phone] Cheryl Hancock MD New Patient (Neuropathy ) 11/14/2024 Travel 11/07/2024 9:40 AM CDT Office Visit [facility] - [place] [id number] [place] [phone] Emilee Lehman APRN Follow Up (Medication managment); Diabetes; Anemia; Fatigue 11/07/2024 Travel 11/05/2024 Telephone [facility] Mult[facility]pec[facility]ty [facility] - [address], [address] [place] [address] Adria Lomeli MD Prior Authorization ([id number]) from Last 3 Months Immunizations Immunization Administration Dates Next Due FLUAD (IIV, Trivalent, 0.5 M L Pre-filled Syringe) 04/02/2024 Fluzone High Dose - >Age 65 (Prefilled Syringe) 03/30/2023,02/16/2022,03/10/2021 Influenza (Generic) 04/17/2023,,04/12/2016,2014,03/26/2013 Influenza Adult (Generic) 03/10/2021,12/2019,03/19/2019,2017,03/08/2017 MODERNA COVID-19 BIVALENT (1 2+), MRNA, LNP-S, PF 12/27/2022,02/21/2022 MODERNA COVID-19 (12+) MRNA, LNP-S, PF, 100 MCG/ 0.5 ML DOSE 02/21/2022 PFIZER COVID-19 (WERNER CAP), MRNA, LNP-S, PF, 30 MCG/0.3 ML CINDY-SUCROSE, IM 09/10/2021 PFIZER COVID-19 (ORIGINAL FORMULATION, PURPLE CAP) mRNA, LNP-S, PF, 30 MCG/0.3 ML DOSE 04/07/2021,08/17/2020,07/20/2020 Pneumococcal (Pneumovax 23) 09/21/2020, 4,07/30/2004 Pneumococcal (Prevnar 13) 03/30/2018 Td (TDVAX) 06/30/2004 Td (Tenivac) preservative free 06/30/2004 Family History Medical History Relation Comments Alcohol Abuse Brother 1 Alcohol Abuse Brother 2 Alcohol Abuse Brother 3 Alcohol Abuse Brother 4 Alcohol Abuse Father Cancer Father esophageal Diabetes Father Early Father Heart Disease Father Hypertension Father Alcohol Abuse Maternal Aunt Early Hearing Loss Maternal Grandfather Heart Disease Maternal Grandfather Stroke Maternal Grandfather Arthritis Maternal Grandmother Depression Maternal Grandmother Diabetes Maternal Grandmother Retardation/Learning Difficulties Maternal Grand mother Heart Disease Mother Hypertension Mother Miscarriages / Stillbirths Mother Alcohol Abuse Paternal Aunt Heart Disease Paternal Grandfather Arthritis Sister 1 Cancer Sister 1 Depression Sister 1 Diabetes Sister 1 Early Sister 1 Heart Attack Sister 1 Heart Disease Sister 1 Hyperlipidemia Sister 1 Hypertension Sister 1 Kidney Disease Sister 1 Miscarriages / Stillbirths Sister 1 Vision loss Sister 1 Cancer Sister 2 thyroid Depression Sister 2 Diabetes Sister 2 Heart Disease Sister 2 Hypertension Sister 2 Kidney Disease Sister 2 Miscarriages / Stillbirths Sister 2 Stent Cardiac Sister 2 Arthritis Sister 3 Cancer Sister 3 Diabetes Sister 3 Heart Disease Sister 3 Hypertension Sister 3 Diabetes Sister 4 Early Sister 4 Heart Disease Sister 4 Kidney Disease Sister 4 Relation Status Comments Brother 1 Brother 2 Alive Brother 3 Alive Brother 4 Alive Father Maternal Aunt Alive Maternal Grandfather Maternal Grandmother Mother Paternal Aunt Paternal Grandfather Alive Paternal Grandmother Sister 1 Sister 2 Alive Sister 3 Alive Sister 4 Alive Social History Tobacco Use Types Packs/Day Years Used Date Smoking Tobacco: Former Cigarettes 1 15 0 10/16/1977 - 10/16/1992 Smokeless Tobacco: Never Tobacco Cessation:Counseling Given: Yes Alcohol Use Standard Drinks/Week Comments Not Currently [...] Sex Assigned at Female 06/25/2024 11:30 AM CAFETERIA MONITOR Legal Sex Female 10:25 AM CDT Gender Identity Female 10/22/2021 9:50 AM CDT Sexual Orientation Not on file Last Filed Vital Signs Vital Sign Reading Time Taken Comments Blood Pressure 120/60 12/26/2024 11:06 AM CDT Pulse 72 12/26/2024 11:06 AM CDT Temperature 36.8 C (98.2 F) 12/23/2024 12:55 PM CDT Respiratory Rate 16 11/07/2024 9:44 AM CDT Oxygen Saturation 100% 11/14/2024 10:03 AM CDT Inhaled Oxygen Concentration - - Weight 72.6 kg (160 lb) 12/26/2024 11:06 AM CDT Height 165.1 cm (5' 5) 12/26/2024 11:06 AM CDT Body Mass Index 26.63 12/26/2024 11:06 AM CDT Plan of Treatment Upcoming Encounters Date Type Department Care Team (Late st Contact Info) Description 02/14/2025 11:20 AM CDT Office Visit [facility] - [place] [address] [place] [phone] Emilee Lehman APRN [id number] [address] 03/28/2025 10:28 AM CDT Hospital Encounter [facility] [address] [place] [address] Adria Lomeli MD [address] [place] [address] 03/28/2025 10:28 AM CDT - 03/28/2025 10:50 AM CDT Surgery [facility] [address] [place] [address] Adria Lomeli MD 3 [facility] [address] [place] [address] EGD 11/14/2025 10:20 AM CDT Office Visit [facility] - [address], [address] [place] [phone] Cheryl Hancock MD 3 [place] [address] Scheduled Procedures Name Priority Associated Diagnoses Date/Ti me EGD Gastroesophageal reflux disease, unspecified whether esophagitis present HH (hiatus hernia) RUQ pain 03/28/2025 10:28 AM CDT Health Maintenance Due Date Last Done Comments Kidney Health Evaluation 1955 Zoster Vaccines (1 of 2) 2003 DTaP, Tdap and Td Vaccines (1 - Tdap) 07/01/2004 06/30/2004, 06/30/2004 RSV Immunization or 60+ Years (1 - Risk 60-74 years 1-dose series) 2013 Annual Medicare Wellness Visit 02/17/2022 02/16/2021 COVID-19 Vaccine ( season) 2024 04/02/2024, 03/30/2023, 12/27/2022, Additional history exists Hemoglobin A1C 11/17/2024 08/19/2024, 07/14, 06/03/2024, Additional history exists Lipid Panel 07/08/2025 07/08/2024, 02/11, 02/24/2021 Diabetes: Retinopathy Eye Exam 10/05/2025 10/06/2023, 06/21/2021, 04/20/2020 Mammogram Screening 08/08/2026 08/08/2024, 07/04/2023, 07/04/2022, Additional history exists Colorectal Cancer Screening Colonoscopy (10 Years) 08/20/2028 08/20/2018 Hepatitis C Completed 03/31/2016 Pneumococcal Vaccine: 50+ Years Completed 09/21/2020, 03/30/2018, 06/25/2013, Additional history exists Dexa Scan (General) Completed 05/20/2021, 02/22/2019, 02/22/2019, Additional history exists PHQ-2 (Physician [place]) Completed 11/14/2024 Meningococcal B Vaccine Aged Out No l onger eligible based on patient's age to complete this topic Meningococcal Vaccine Aged Out No nicolasa asha eligible based on patient's age to complete this topic RSV Immunizations Under 20 Months Aged Out No longer eligible based on patient's age to complete this topic Goals Goal Patient Goal Type Associated Problems Recent Progress Patient-Stated? Author Blood Pressure < 140/90 Blood Pressure 120/60(2024 11:06 AM CDT) Genia Atkins PharmD Consistently Take Medications as Prescribed Lifestyle Not on track( 023 11:48 AM CDT) Genia Atkins PharmD Note: Hypertension: Patient will monitor B/P [...] for Symptom Monitoring Lifestyle Not on track( 11:48 AM CDT) Genia Atkins PharmD Note: Diabetes: Patient will manage diabetes [...] < 7 Result Component 8(08/09/2024 12:00 AM CAFETERIA MONITOR) Genia Atkins PharmD Medical Devices Implanted Type Area Aircraft Instrument Engineer Device Identifier Shelf Expiration Date Model / Serial / Lot Agent Hemostatic Floseal Matrix 5 Ml - [id number] Implanted:Qty: 1 on 06/15/2022 [facility] [id number] 02/01/2024 [id number] / / [id number] Procedures Procedure Name Priority Date/Time Associated Diagnosis Comments NM PHARM NUC STRESS TEST 1DAY W TRACING Routine 01/16/2025 11:37 AM CDT Chest pain, unspecified type LUCAS (dyspnea on exertion) CARDIOLOGY STRESS TEST ONLY, EXERCISE Routine 01/16/2025 7:45 AM CDT Chest pain, unspecified type LUCAS (dyspnea on exertion) ECG 12-LEAD Routine 11/20/2024 10:46 AM CDT Pre-op testing HEMOGLOBIN, GLYCOSYLATED Routine 08/09/2024 Type 2 diabetes mellitus with hyperglycemia, without long-term current use of insulin ([facility]) LIPID PANEL Routine 07/08/2024 8:33 AM CAFETERIA MONITOR Hyperlipidemia, mixed DIABETIC RETINOPATHY EXAM (NEGATIVE)(SCAN ORDER) Routine 10/06/2023 MAMMOGRAM GENERIC (SCAN ORDER) Routine 07/04/2022 BONE DENSITY/DEXA Routine 05/20/2021 10: 51 AM CAFETERIA MONITOR Age related osteoporosis COLONOSCOPY GENERIC (SCAN ORDER) Routine 08/20/2018 from Last 3 Months or Most Recently Relevant to Health Maintenance Results * NM PHARM NUC STRESS TEST 1 DAY W TRACING (01/16/2025 11:37 AM CDT) Anatomical Region Laterality Modality Cardiac Nuclear Medicine 01/16/2025 1:05 PM CDT Impressions 01/16/2025 1:21 PM CDT IMPRESSION: 1. Normal rest and exercise myocardial perfusion. 2. Normal left ventricular size and systolic function. Ordered By: EGNIA HERNDON Interpreted By: Alexandro Orellana MD, 01/16/2025 1:05 PM Narrative 01/16/2025 1:21 [place] [address] EXAMINATION: NM PHARM NUC STRESS TEST 1DAY W TRACING HISTORY: Reason for examination (per EHR order): . Additional clinical information obtained from the EHR: 69 years Female with chest pain and dyspnea on exertion. RADIOPHARMACEUTICAL: 11.0 mCi, 32.4 mCi Tc-99m sestamibi i.v. TECHNIQUE: Standard myocardial perfusion SPECT images were obtained after resting tracer injection. Subsequently, 0.4 mg Regadenoson. Standard myocardial perfusion SPECT images were obtained after tracer injection. Images were obtained in a in a supine position. Additional prone post-stress images also were obtained to allow for better evaluation of the inferior wall. COMPARISON: Myocardial perfusion stress 04/26/2021. FINDINGS: The electrocardiographic portion of today's exercise stress examination was negative for ischemia. The stress test and EKG were performed under the supervision of Dr. Zacarias Scott. The projection images were reviewed for image quality, and reveal moderate motion degradation during the rest acquisition. No significant motion degradation is identified on the stress acquisition however. There is normal distribution of activity in the left and right ventricular myocardium on both stress and rest images. Gated post-stress images demonstrate normal left ventricular volume, normal left ventricular wall motion and? normal ejection fraction of 74 % (normal >45%). Procedure Note Alexandro Orellana MD - 01/16/[address] [place] [address] EXAMINATION: NM PHARM NUC STRESS TEST 1DAY W TRACING HISTORY: Reason for examination (per EHR order): . Additional clinical information obtained from the EHR: 69 years Femalewith chest pain and dyspnea on exertion. RADIOPHARMACEUTICAL: 11.0 mCi, 32.4 mCi Tc-99m sestamibi i.v. TECHNIQUE: Standard myocardial perfusion SPECT images were obtained afterresting tracer injection. Subsequently, 0.4 mg Regadenoson. Standardmyocardial perfusion SPECT images were obtained after tracer injection.Images were obtained in a in a supine position. Additional pronepost-stress images also were obtained to allow for better evaluation ofthe inferior wall. COMPARISON: Myocardial perfusion stress 04/26/2021. FINDINGS: The electrocardiographic portion of today's exercise stress examinationwas negative for ischemia. The stress test and EKG were performed under the supervision of Dr. Levy. The projection images were reviewed for image quality, and reveal moderatemotion degradation during the rest acquisition. No significant motiondegradation is identified on the stress acquisition however. There is normal distribution of activity in the left and right ventricularmyocardium on both stress and rest images. Gated post-stress images demonstrate normal left ventricular volume,normal left ventricular wall motion and? normal ejection fraction of 74 %(normal >45%). IMPRESSION: 1. Normal rest and exercise myocardial perfusion. 2. Normal left ventricular size and systolic function. 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1955 Requested By: ADRIA LOMELI Order Number: [id number] Reading MD: Zacarias Scott Measurements Intervals [place] Rate: 67 P: 67 MT: 152 QRS: -40 QRSD: 89 T: 59 QT: 393 QTc: 416 Interpretive Statements SINUS RHYTHM LEFT AXIS DEVIATION [QRS AXIS < -30] LOW QRS VOLTAGE IN PRECORDIAL LEADS [QRS DEFLECTION < 1.0 mV IN CHEST LEADS] POSSIBLE ANTERIOR MYOCARDIAL INFARCTION , OF INDETERMINATE AGE [30 ms Q WAVE IN V3/V4, OR R < 0.2 mV IN V4] Compared to ECG 02/17/2021 12:41:18 No significant changes Procedure Note Zacarias Scott MD - 06/13/2025 [facility] Test Date: 2024-11-20 Pat Name: IAN MCGARRY Department: 85 Room: Gender: Female 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1955 Requested By: ADRIA LOMELI Order Number: [id number] Reading MD: Zacarias Scott Measurements Intervals [place] Rate: 67 P: 67 MT: 152 QRS: -40 QRSD: 89 T: 59 QT: 393 QTc: 416 Interpretive Statements SINUS RHYTHM LEFT AXIS DEVIATION [QRS AXIS < -30] LOW QRS VOLTAGE IN PRECORDIAL LEADS [QRS DEFLECTION < 1.0 mV IN CHESTLEADS] POSSIBLE ANTERIOR MYOCARDIAL INFARCTION , OF INDETERMINATE AGE [30 ms QWAVE IN V3/V4, OR R < 0.2 mV IN V4] Compared to ECG 02/17/2021 12:41:18 No significant changes Adria Lomeli MD ECG ORDERABLES Final Result Performing Organization Address [facility] de Phone Number [facility] ([facility]) RAD * HEMOGLOBIN, GLYCOSYLATED (08/09/2024) HGB A1C 8.0 % [id number] [facility] 08/09/2024 Emilee Lehman APRN LABORATORY Final Resu lt Performing Organization Address [facility] Co de Phone Number [id number] [facility] [address] [place] [address], [place] [phone] * LIPID PANEL (07/08/2024 8:33 AM CAFETERIA MONITOR) CHOLESTEROL 184 <200.0 MG/DL 07/08/2024 9:24 AM CAFETERIA MONITOR [facility] TRIGLYCERIDES 83 <150 MG/DL 07/08/2024 9:24 AM CAFETERIA MONITOR [facility] HDL 99 >40.0 MG/DL 07/08/2024 9:24 AM [facility] LDL (CALCULATED) 68 <100 MG/DL 07/08/19 9:24 AM [facility] NON HDL CHOLESTEROL 85 <130 MG/DL 07/08 9:24 AM [facility] CHOL/HDL RATIO 1.9 0.0 - 4.5 07/08/2024 9:24 AM [facility] VLDL CALCULATION 17 5 - 55 MG/DL 07/08/2024 9:24 AM [facility] LIPID INTERPRETATION 07/08/2024 9:24 AM [facility] Comment: NIH CONCENSUS REPORT RECOMMENDATIONS: ADULT CHILD LOW RISK: CHOLESTEROL <200 <170 TRIGLYCERIDE <150 --- HDL >=60 --- LDL <100 <110 BORDERLINE: CHOLESTEROL 200-239 170-199 TRIGLYCERIDE 150-199 --- HDL 40-59 --- LDL 100-159 110-129 HIGH RISK: CHOLESTEROL >=240 >=200 TRIGLYCERIDE >=200 --- HDL <40 --- LDL >=160 >=130 07/08/2024 8:33 AM CAFETERIA MONITOR Zacarias Scott MD LABORATORY Final Resul t Performing Organization Address [facility]/ZIP Co de Phone Number [facility] [address] [place] [address], [place] [phone] * DIABETIC RETINOPATHY EXAM (NEGATIVE) (10/06/2023) [employer] [facility] Scanned SCANNING Final Resu lt Performing Organization Address City/[facility]/ZIP Co de Phone Number [facility] ONBASE * MAMMOGRAM (07/04/2022) Anatomical Region Laterality Modality Other [employer] [facility] Scanned SCANNING Final Resu lt * BONE DENSITY/DEXA (05/20/2021 10:51 AM CAFETERIA MONITOR) Anatomical Region Laterality Modality Bone Bone Density 05/20/2021 1:36 PM CAFETERIA MONITOR Impressions 05/20/2021 1:37 PM CAFETERIA MONITOR FINDINGS AND IMPRESSION: Examination performed on a TransEng[employer] Discovery SL .: LUMBAR SPINE L2-L4: 1. BMD: 1.034 g/cm2. 2. T score: -0.4. Previous T score: No previous available. 3. WHO classification: Normal young adult range. 4. Fracture risk: Very low. LEFT FEMORAL NECK: 1. BMD: 0.601 g/cm2. 2. T score: -2.2. Previous T score: No previous available. 3. WHO classification: Very osteopenic. 4. Fracture risk: Low. Recommendations: Recommend therapy and follow up to assess response. Voice recognition software utilized. Ordered By: RADHIKA PHIPPS Interpreted By: Jared Bailey, 05/20/2021 1:36 PM Narrative 05/20/2021 1:37 PM CAFETERIA MONITOR Examination: BONE DENSITY/DEXA Exam date/time: 05/20/2021 9:50 AM CLINICAL HISTORY: Screening . COMPARISON STUDIES: No previous available. Procedure Note Jared Bailey MD - 05/20/2021 Examination: BONE DENSITY/DEXA Exam date/time: 05/20/2021 9:50 AM CLINICAL HISTORY: Screening . COMPARISON STUDIES: No previous available. FINDINGS AND IMPRESSION: Examination performed on a [employer] Discovery SL .: LUMBAR SPINE L2-L4: 1. BMD: 1.034 g/cm2. 2. T score: -0.4. Previous T score: No previous available. 3. WHO classification: Normal young adult range. 4. Fracture risk: Very low. LEFT FEMORAL NECK: 1. BMD: 0.601 g/cm2. 2. T score: -2.2. Previous T score: No previous available. 3. WHO classification: Very osteopenic. 4. Fracture risk: Low. Recommendations: Recommend therapy and follow up to assess response. Voice recognition software utilized. Ordered By: RADHIKA PHIPPS Interpreted By: Jared Bailey, 05/20/2021 1:36 PM Radhika DANIELSON DEXA Final Result * COLONOSCOPY (08/20/2018) [facility] Scanned SCANNING Final Resu lt [facility] [address] [place] [address] from Last 3 Months or Most Recently Relevant to Health Maintenance Additional Health Concerns Infection Onset Date Last Indicated MRSA Comment:02/17/21 +MRSA Nasal 06/09/22 negative nares (JK) 02/18/2021 02/18/2021 Insurance [facility] MEDICARE Care Teams Polysom Tech Relationship Specialty Start Date End Date Emilee Lehman APRN [address] [address] PCP - General NURSE PRACTITIONER 08/04/22 [place] [address] [address] [address] Consulting Physician CARDIOVASCULAR DISEASE 11/20/24
--- OUTSIDE RECORDS SUMMARY | 2025-01-25 15:41 | XMS_ITS | Encounter Summary ---
Author Organization [facility] Address [facility] [place] [address] Care Team Providers Care Chemical Inspector Name Role Phone Fallon Emilee Gonzales APRN Primary Care Provider [phone]- [phone] Genia Cortes PharmD Unavailable [phone] Zacarias Scott MD Unavailable [phone] Encounter Details Date Type Department Care Team (Latest Contact Info) Description 11/21/2022 Tactilet Message Enc [facility] [place] [address] [place] [address] Rodrigo Lomeli MD [address] [place] [address] Pantoprazole Refill Social History Tobacco Use [...] Assigned at Female 06/25/2024 11:30 AM MEDICAL HOUSEKEEPER Legal Sex Female 10:25 AM CDT Gender [...] Assessment Author Status No 06/15/2022 7:00 PM MEDICAL HOUSEKEEPER Activ e * RETIRED Are you blind or do you have serious difficulty seeing, even when wearing glasses? Answer Date of Assessment Author Status No 06/15/2022 7:00 PM MEDICAL HOUSEKEEPER Activ e * Do you have serious [...] HOSPITAL Medical Group Family & Internal Medicine [facility] [address] [place] [address] Emilee Lehman, MACHINE LOAD CLERK [address] [place] [address] 03/28/2025 10:28 AM CDT Hospital Encounter [facility] [id number] [place] [address] Rodrigo Lomeli MD 3 [facility] [address] [place] [address] 03/28/2025 10:28 AM CDT - 03/28/2025 10:50 AM CDT Surgery [facility] [address] [place] [address] Rodrigo Lomeli MD [address] [place] [address] EGD 11/14/2025 10:20 AM CDT Office Visit [facility] Multispecialty Care - [address], [address] [place] [address] Cheryl Hancock MD [address] [place] [address] Scheduled Procedures Name Priority Associated Diagnoses Date/Ti [...] Out 06/02/2023 06/02/2023 06/02/2023 10:09 AM MEDICAL HOUSEKEEPER Influenza - Seasonal 06/02/2023 06/02/2023 024 12:32 AM MEDICAL HOUSEKEEPER COVID-19 Rule Out 06/30/2023 06/30/2023 06/30/2023 4:38 PM MEDICAL HOUSEKEEPER Influenza - Seasonal 06/30/2023 06/30/2023 024 12:32 AM MEDICAL HOUSEKEEPER COVID-19 Rule Out 11/21/2023 11/21/2023 11/21/2023 12:22 PM CDT Influenza - Seasonal 11/21/2023 11/21/2023 024 12:33 AM CDT COVID-19 Rule Out 07/17/2024 07/17/2024 07/17/2024 1:58 PM MEDICAL HOUSEKEEPER Influenza - Seasonal 07/17/2024 07/17/2024 025 12:32 AM MEDICAL HOUSEKEEPER Assessment Noted Time PHQ-9 Depression Total Score: 2 08/04/19 10:35 AM MEDICAL HOUSEKEEPER documented as of this encounter Care Teams Chemical Inspector Relationship Specialty Start Date End Date Emilee Lehman APRN [address] [address] [place], [place] [phone] PCP - General NURSE PRACTITIONER 08/04/22 Genia Cortes, PharmD [address] [place] [address] Hydrochloric Acid Operator (Ambulatory) Pharmacist 01/02/23 02/26/23 [place] [address] [address] [place] [address] Consulting Physician CARDIOVASCULAR DISEASE 11/20/24 documented as of this encounter
--- OUTSIDE RECORDS SUMMARY | 2025-01-25 15:41 | XMS_ITS | Encounter Summary ---
Author Organization [facility] Address [facility] [place] [address] Care Team Providers Care Supervisor Cell Operation Name Role Phone Emilee Lehman APRN Primary Care Provider [phone] Genia Cortes PharmD Unavailable [phone] Zacarias Scott MD Unavailable [phone] Encounter Details Date Type Department Care Team (Late st Contact Info) Description 12/12/20[address] [employer] [address] [facility] Family & Internal Medicine [facility] [address] [place] [address] Emilee Lehman APRN [address] [address] Appointment on December 15 Social History Tobacco Use Types Packs/Day [...] Sex Assigned at Female 06/25/2024 11:30 AM CUSTOMS VERIFIER Legal Sex Female 10:25 AM CDT Gender [...] Assessment Author Status No 06/15/2022 7:00 PM CUSTOMS VERIFIER Activ e * RETIRED Are you blind or do you have serious difficulty seeing, even when wearing glasses? Answer Date of Assessment Author Status No 06/15/2022 7:00 PM CUSTOMS VERIFIER Activ e * Do you have serious difficulty walking or climbing stairs? Answer Date of Assessment Author Status No 06/15/2022 7:00 PM CUSTOMS VERIFIER Eufemia Jimenez RN Active * Do you [...] documented in this encounter Progress Notes * Devaughn Trejo RN - 12/12/2022 1:21 PM CDT Please advise. documented in this encounter Plan of Treatment Upcoming Encounters Date Type Department Care Team (Late st Contact Info) Description 02/14/2025 11:20 AM CDT Office Visit [facility] Internal Medicine - [place] [address] [place] [phone] Emilee Lehman, AGENT SPA DESK [address] [facility] [address] [place] [address] 03/28/2025 10:28 AM CDT Hospital Encounter [facility] [address] [place] [address] Rodrigo Lomeli MD [address] [place] [address] 03/28/2025 10:28 AM CDT - 03/28/2025 10:50 AM CDT Surgery [facility] [address] [place] [address] Rodrigo Lomeli MD [address] [place] [address] EGD 11/14/2025 10:20 AM CDT Office Visit [facility] Multispecialty Care - [address], [address] [address] Cheryl Hancock MD [address] [place] [address] Scheduled Procedures Name Priority Associated Diagnoses Date/Ti [...] Rule Out 06/02/2023 06/02/2023 06/02/2023 10:09 AM CUSTOMS VERIFIER Influenza - Seasonal 06/02/2023 06/02/2023 024 12:32 AM CUSTOMS VERIFIER COVID-19 Rule Out 06/30/2023 06/30/2023 06/30/2023 4:38 PM CUSTOMS VERIFIER Influenza - Seasonal 06/30/2023 06/30/2023 024 12:32 AM CUSTOMS VERIFIER COVID-19 Rule Out 11/21/2023 11/21/2023 11/21/2023 12:22 PM CDT Influenza - Seasonal 11/21/2023 11/21/2023 024 12:33 AM CDT COVID-19 Rule Out 07/17/2024 07/17/2024 07/17/2024 1:58 PM CUSTOMS VERIFIER Influenza - Seasonal 07/17/2024 07/17/2024 025 12:32 AM CUSTOMS VERIFIER Assessment Noted Time PHQ-9 Depression Total Score: 2 08/04/19 10:35 AM CUSTOMS VERIFIER documented as of this encounter Care Teams Supervisor Cell Operation Relationship Specialty Start Date End Date Emilee Lehman APRN [address] [address] [place] [address] PCP - General NURSE PRACTITIONER 08/04/22 Genia Cortes, PharmD [address] [place] [address] Spot Welder Body Assembly (Ambulatory) Pharmacist 01/02/23 02/26/23 [place] [address] [place] [address] Consulting Physician CARDIOVASCULAR DISEASE 11/20/24 documented as of this encounter
--- OUTSIDE RECORDS SUMMARY | 2025-01-25 15:41 | XMS_ITS | Encounter Summary ---
Author Organization [facility] Address [facility] [place] [address] Care Team Providers Care Pinked Edge Sewing Machine Operator Name Role Phone Emilee Lehman Janet LAFLEUR Primary Care Provider [phone]- [phone] Zacarias Scott MD Unavailable [phone] Encounter Details Date Type Department Care Team (Late st Contact Info) Description 08/27/2024 [employer] Message [facility] [address] [place] [phone] Zacarias Scott MD [address] [address] Low Dose Aspirin Social History Tobacco Use Types Packs/Day Years [...] Sex Assigned at Female 06/25/2024 11:30 AM ART CRITIC Legal Sex Female 10:25 AM CDT Gender Identity Female 10/22/2021 9:50 AM CDT Sexual Orientation Not on file documented as of this encounter Functional Status * RETIRED Are you deaf or do you have serious difficulty hearing Answer Date of Assessment Author Status No 06/15/2022 7:00 PM ART CRITIC Activ e * RETIRED Are you blind or do you have serious difficulty seeing, even when wearing glasses? Answer Date of Assessment Author Status No 06/15/2022 7:00 PM ART CRITIC Activ e * Do you have serious difficulty walking or climbing stairs? Answer Date of Assessment Author Status No 06/15/2022 7:00 PM ART CRITIC Eufemia Jimenez RN Active * Do you [...] encounter Progress Notes * AZUCENA Watts - 08/28/2024 12:50 PM CDT Okay to trail back low dose ASA every other day dosing for now with a repeat CBC in 4 weeks. * AZUCENA Watts - 08/27/2024 3:27 PM CDT Would need to review hospital records before giving the okay to resume ASA since there was rectal bleeding. Where was she admitted at? Would want to see what GI's recs are regarding the ASA. documented in this encounter Plan of Treatment Upcoming Encounters Date Type Department Care Team (Late st Contact Info) Description 02/14/2025 11:20 AM CDT Office Visit [facility] Family & Internal Medicine [facility] [address] [place] [phone] Emilee Lehman APRN [address] [facility] [address] [place] [address] 03/28/2025 10:28 AM CDT Hospital Encounter [facility] [address] [place] [address] Rodrigo Lomeli MD [address] [place] [address] 03/28/2025 10:28 AM CDT - 03/28/2025 10:50 AM CDT Surgery [facility] [address] [place] [address] Rodrigo Lomeli MD [address] [place] [address] EGD 11/14/2025 10:20 AM CDT Office Visit [facility] Multispecialty Care - [facility] 3 [facility], [address] [place] [phone] Cheryl Hancock MD 3 [place] [address] Scheduled Procedures Name Priority Associated Diagnoses Date/Ti me EGD Gastroesophageal reflux disease, unspecified whether esophagitis present HH (hiatus hernia) RUQ pain 03/28/2025 10:28 AM CDT documented as of this encounter Goals Goal Patient Goal Type Associated Problems Recent Progress Patient-Stated? Author Blood Pressure < 140/90 Blood Pressure 120/60(2024 11:06 AM CDT) No Genia Cortes, Elvira Consistently Take Medications as Prescribed Lifestyle Not on track( 11:48 AM CDT) Genia Atkins, Elvira Note: Hypertension: Patient will monitor B/P [...] Lifestyle Not on track( 11:48 AM CDT) No Genia Cortes, PharmKasey Note: Diabetes: Patient will manage diabetes and [...] < 7 Result Component 8(08/09/2024 12:00 AM ART CRITIC) No Genia Cortes, Elvira documented as of this encounter Results * (ABNORMAL) CBC W/DIFF AUTOMATED (09/19/2024 1:21 PM CDT) WBC 4.37(L) 4.4 - 11.0 x10'3/uL 09/19/2024 1:45 PM CDT [facility] RBC 4.02(L) 4.50 - 5.10 x10'6/uL 09/19/2024 1:45 PM CDT [facility] HGB 13.0 12.3 - 15.3 G/DL 09/19/2024 1:45 PM CDT [facility] HCT 37.9 35.9 - 44.6 % 09/19/2024 1:45 PM CDT [facility] MCV 94.3 80.0 - 96.0 FL 09/19/2024 1:45 PM CDT [facility] MCH 32.3(H) 25.3 - 30.9 PG 09/19/2024 1:45 PM CDT [facility] MCHC 34.3(H) 31.0 - 34.1 G/DL 09/19/2024 1:45 PM CDT [facility] RDW 12.8 12.4 - 15.1 % 09/19/2024 1:45 PM CDT [facility] PLT 333 151 - 353 x10'3/uL 09/19/2024 1:45 PM T [facility] MPV 8.9(L) 9.6 - 12.0 FL 09/19/2024 1:45 PM CDT [facility] RBC MORPHOLOGY NORMAL 09/19/2024 1:45 PM T [facility] PLT MORPH. NORMAL 09/19/2024 1:45 PM CDT [facility] WBC MORPHOLOGY NORMAL 09/19/2024 1:45 PM CDT [facility] LYMPHOCYTES % 26.5 15.8 - 45.0 % 09/19/2024 1:45 PM CDT [facility] NEUTROPHILS % 60.9 42.1 - 71.9 % 09/19/2024 1:45 PM CDT [facility] MONOCYTES % 10.3 5.7 - 12.5 % 09/19/2024 1:45 PM CDT [facility] EOSINOPHILS 1.4 0.0 - 5.6 % 09/19/2024 1:45 PM CDT [facility] BASOPHILS 0.9 0.0 - 1.3 % 09/19/2024 1:45 PM CDT [facility] ABS. NEUTROPHILS 2.66 1.40 - 6.00 x10'3/uL 09/19/2024 1:45 PM CDT [facility] IMMATURE GRANS % 0.0 0.0 - 0.5 % 09/19/2024 1:45 PM CDT [facility] ABS. LYMPHOCYTES 1.16 0.80 - 4.70 x10'3/uL 09/19/2024 1:45 PM CDT [facility] 09/19/2024 1:21 PM CDT us Zacarias Scott MD LABORATORY Final Resul t [facility] [address] [place] [phone], documented in this encounter Visit Diagnoses Diagnosis Anticoagulated- Primary Encounter for long-term (current) use of anticoagulants Gastroesophageal reflux disease, unspecified whether esophagitis present HH (hiatus hernia) Diaphragmatic hernia without mention of obstruction or gangrene RUQ pain Abdominal pain, right upper quadrant documented in this encounter Additional Health Concerns Infection Onset Date Last Indicated Resolved Time MRSA Comment:02/17/21 +MRSA Nasal 06/09/22 negative nares (JK) 02/18/2021 02/18/2021 Assessment Noted Time PHQ-9 Depression Total Score: 0 07/05/19 25 2:58 PM ART CRITIC documented as of this encounter Care Teams Pinked Edge Sewing Machine Operator Relationship Specialty Start Date End Date Emilee Lehman APRN [address] [place] [address] PCP - General NURSE PRACTITIONER 08/04/22 [place] [address] [address] [place] [address] Consulting Physician CARDIOVASCULAR DISEASE 11/20/24 documented as of this encounter
--- OUTSIDE RECORDS SUMMARY | 2025-01-25 15:41 | XMS_ITS | Encounter Summary ---
Author Organization [facility] Address [address] [place] [address] Care Team Providers Care Concreter Name Role Phone Emilee Lehman APRN Primary Care Provider [phone]- [phone] Zacarias Scott MD Unavailable [phone] Encounter Details Date Type Department Care Team (Late Contact Info) Description 06/06/2024 [employer] Message Enc [facility] Family & Internal Medicine [facility] [address] [place] [address] Aníbal, [facility] Provider A1c results Social History Tobacco Use Types Packs/Day [...] Sex Assigned at Female 06/25/2024 11:30 AM CANCER REGISTRY MANAGER Legal Sex Female 10:25 AM CDT Gender Identity Female 10/22/2021 9:50 AM CDT Sexual Orientation Not on file documented as of this encounter Functional Status * RETIRED Are you deaf or do you have serious difficulty hearing Answer Date of Assessment Author Status No 06/15/2022 7:00 PM CANCER REGISTRY MANAGER Activ e * RETIRED Are you blind or do you have serious difficulty seeing, even when wearing glasses? Answer Date of Assessment Author Status No 06/15/2022 7:00 PM CANCER REGISTRY MANAGER Activ e * Do you have [...] Description 02/14/2025 11:20 AM CDT Office Visit [facility] Family & Internal Medicine [facility] [address] [place] [address] Emilee Lehman, BASKET BRAIDER [address] [address] 03/28/2025 10:28 AM CDT Hospital Encounter [facility] [address] [place] [address] Rodrigo Lomeli MD [address] [place] [address] 03/28/2025 10:28 AM CDT - 03/28/2025 10:50 AM CDT Surgery [facility] [address] [place] [address] Rodrigo Lomeli MD 3 [facility] [address] [place] [address] EGD 11/14/2025 10:20 AM CDT Office Visit [facility] Multispecialty Care - [facility] 3 [facility], [address] [place] [address] Cheryl Hancock MD 3 [place] [address] Scheduled Procedures Name Priority Associated Diagnoses Date/Ti [...] track( 023 11:48 AM CDT) No Genia Cortes P, PharmD Note: Diabetes: Patient will manage [...] < 7 Result Component 8(08/09/2024 12:00 AM CANCER REGISTRY MANAGER) Genia Atkins, PharmD documented as of this encounter Visit Diagnoses Not on filedocumented in this encounter Additional Health Concerns Infection Onset Date Last Indicated Resolved Time MRSA Comment:02/17/21 +MRSA Nasal 06/09/22 negative nares (JK) 02/18/2021 02/18/2021 COVID-19 Rule Out 07/17/2024 07/17/2024 07/17/2024 1:58 PM CANCER REGISTRY MANAGER Influenza - Seasonal 07/17/2024 07/17/2024 025 12:32 AM CANCER REGISTRY MANAGER Assessment Noted Time PHQ-9 Depression Total Score: 2 08/04/19 23 10:35 AM CANCER REGISTRY MANAGER documented as of this encounter Care Teams Concreter Relationship Specialty Start Date End Date Emilee Lehman APRN [address] [address] [place] [address] PCP - General NURSE PRACTITIONER 08/04/22 [place] [address] [address] [place] [address] Consulting Physician CARDIOVASCULAR DISEASE 11/20/24 documented as of this encounter
--- OUTSIDE RECORDS SUMMARY | 2025-01-25 15:41 | XMS_ITS | Encounter Summary ---
Author Organization [facility] Address [facility] [place] [address] Care Team Providers Care Transportation Solutions Manager Name Role Phone Fallon Emilee Gonzales APRN Primary Care Provider [phone] Zacarias Scott MD Unavailable [phone] Encounter Details Date Type Department Care Team (Latest Contact Info) Description 08/15/2024 Youth Noise Message Enc [facility] [address] [address] Rodrigo Lomeli MD [address] [place] [id number] Hiatal Hernia Question Social History Tobacco Use Types Packs/Day [...] Sex Assigned at Female 06/25/2024 11:30 AM RUBBER GOODS ASSEMBLER Legal Sex Female 10:25 AM CDT Gender Identity Female 10/22/2021 9:50 AM CDT Sexual Orientation Not on file documented as of this encounter Functional Status * RETIRED Are you deaf or do you have serious difficulty hearing Answer Date of Assessment Author Status No 06/15/2022 7:00 PM RUBBER GOODS ASSEMBLER Activ e * RETIRED Are you blind or do you have serious difficulty seeing, even when wearing glasses? Answer Date of Assessment Author Status No 06/15/2022 7:00 PM RUBBER GOODS ASSEMBLER Activ e * Do you have serious [...] 7:00 PM Eufemia Lozano RN Active * Calculated C-SSRS Risk Score (Lifetime/Recent) Answer Date of Assessment Author Status No Risk Indicated 08/17/2024 7:54 AM Anika Shaw RN Active * Morrison Suicide Severity Rating Scale (Screener/Recent Self-Report) Question Answer Date of Assessment Author Status 1. Wish to be (Past 1 Month) No 08/17/2024 7:54 AM Merced Shaw RN Ac tive 2. Non-Specific Active Suicidal Thoughts (Past 1 Month) No 08/17/2024 7:54 AM Merced Shaw RN Ac tive 6. Suicidal Behavior (Lifetime) No 08/17/2024 7:54 AM Merced Shaw RN Ac tive documented as of this encounter Mental Status [...] Description 02/14/2025 11:20 AM CDT Office Visit [facility] [place] [address] [place] [address] Emilee Lehman APRN [address] [facility] [address] [place] [address] 03/28/2025 10:28 AM CDT Hospital Encounter [facility] [address] [place] [address] Rodrigo Lomeli MD [address] [place] [address] 03/28/2025 10:28 AM CDT - 03/28/2025 10:50 AM CDT Surgery [facility] [address] [place] [address] Rodrigo Lomeli MD [address] [place] [address] EGD 11/14/2025 10:20 AM CDT Office Visit [facility] Multispecialty Care - [address], [address] [place] [id number] Cheryl Hancock MD [address] [place] [address] Scheduled Procedures Name Priority Associated Diagnoses Date/Ti me EGD Gastroesophageal reflux disease, unspecified whether esophagitis present HH (hiatus hernia) RUQ pain 03/28/2025 10:28 AM CDT documented as of this encounter Goals Goal Patient Goal Type Associated Problems Recent Progress Patient-Stated? Author Blood Pressure < 140/90 Blood Pressure 120/60(2024 11:06 AM CDT) Genia Atkins, PharmD Consistently Take Medications as Prescribed Lifestyle Not on track( 023 11:48 AM CDT) No Genia Cortes PharmD Note: Hypertension: Patient will monitor B/P [...] AM CDT) No Genia Cortes, Elvira Note: Diabetes: Patient will manage diabetes and [...] < 7 Result Component 8(08/09/2024 12:00 AM RUBBER GOODS ASSEMBLER) No Genia Cortes, Elvira documented as of this encounter Visit Diagnoses Not on filedocumented in this encounter Additional Health Concerns Infection Onset Date Last Indicated Resolved Time MRSA Comment:02/17/21 +MRSA Nasal 06/09/22 negative nares (RebaK) 02/18/2021 02/18/2021 Assessment Noted Time PHQ-9 Depression Total Score: 0 07/05/19 25 2:58 PM RUBBER GOODS ASSEMBLER documented as of this encounter Care Teams Transportation Solutions Manager Relationship Specialty Start Date End Date Lehman, Emilee A, TRANSFORMATION CONSULTANT [address] [place] [address] PCP - General NURSE PRACTITIONER 08/04/22 [place] [address] [place] [address] Consulting Physician CARDIOVASCULAR DISEASE 11/20/24 documented as of this encounter
--- OUTSIDE RECORDS SUMMARY | 2025-01-25 15:41 | XMS_ITS | Encounter Summary ---
Author Organization [facility] Address [facility] [place] [address] Care Team Providers Care Underwriting Internship Name Role Phone Emilee Lehman Janet LAFLEUR Primary Care Provider [phone] Zacarias Scott MD Unavailable [phone] Encounter Details Date Type Department Care Team (Late st Contact Info) Description 06/17/2024 ClasesD Message [facility] [address] [place] [phone] Zacarias Scott MD [address] [address] Stopping 81 mg aspirin before carpal tunnel surgery on 06/25 Social History Tobacco Use Types Packs/Day Years [...] Sex Assigned at Female 06/25/2024 11:30 AM PRIVATE MORTGAGE BANKER SAFE Legal Sex Female 10:25 AM CDT Gender Identity Female 10/22/2021 9:50 AM CDT Sexual Orientation Not on file documented as of this encounter Functional Status * RETIRED Are you deaf or do you have serious difficulty hearing Answer Date of Assessment Author Status No 06/15/2022 7:00 PM PRIVATE MORTGAGE BANKER SAFE Activ e * RETIRED Are you blind or do you have serious difficulty seeing, even when wearing glasses? Answer Date of Assessment Author Status No 06/15/2022 7:00 PM PRIVATE MORTGAGE BANKER SAFE Activ e * Do you have serious difficulty walking or climbing stairs? Answer Date of Assessment Author Status No 06/15/2022 7:00 PM PRIVATE MORTGAGE BANKER SAFE Eufemia Jimenez RN Active * Do you have difficulty dressing or bathing? Answer Date of Assessment Author Status No 06/15/2022 7:00 PM PRIVATE MORTGAGE BANKER SAFE Eufemia Jimenez RN Active * Because of a physical, mental, or emotional condition, do you have difficulty doing errands alone such as visiting a doctor's office or shopping? Answer Date of Assessment Author Status No 06/15/2022 7:00 PM PRIVATE MORTGAGE BANKER SAFE Eufemia Jimenez RN Active documented as of this encounter Mental Status * Because of a physical, mental, or emotional condition, do you have serious difficulty concentrating, remembering, or making decisions? Answer Entry Date Author Status No 06/15/2022 7:00 PM Eufemia Lozano RN Active documented in this encounter Progress Notes * AZUCENA Watts - 06/18/2024 9:35 AM CST Ok to hold ASA for 6-7 days prior if needed. ATE MORTGAGE BANKER SAFE documented in this encounter Plan of Treatment Upcoming Encounters Date Type Department Care Team (Late st Contact Info) Description 02/14/2025 11:20 AM CDT Office Visit [facility] Family & Internal Medicine [facility] [id number] [place] [phone] Emilee Lehman, CABLE TELEVISION PROGRAM DIRECTOR [address] [place] [address] 03/28/2025 10:28 AM CDT Hospital Encounter [facility] [address] [place] [address] Rodrigo Lomeli MD [address] [facility] [address] [place] [address] 03/28/2025 10:28 AM CDT - 03/28/2025 10:50 AM CDT Surgery [facility] [address] [place] [address] Rodrigo Lomeli MD [address] [place] [address] [address] [place] [address] EGD 11/14/2025 10:20 AM CDT Office Visit [facility] Multispecialty Care - [address], [address] [place] [address] Cheryl Hancock MD [address] [place] [address] Scheduled Procedures Name Priority Associated Diagnoses Date/Ti [...] < 7 Result Component 8(08/09/2024 12:00 AM PRIVATE MORTGAGE BANKER SAFE) Genia Atkins, PharmD documented as of this encounter Visit Diagnoses Not on filedocumented in this encounter Additional Health Concerns Infection Onset Date Last Indicated Resolved Time MRSA Comment:02/17/21 +MRSA Nasal 06/09/22 negative nares (JK) 02/18/2021 02/18/2021 COVID-19 Rule Out 07/17/2024 07/17/2024 07/17/2024 1:58 PM PRIVATE MORTGAGE BANKER SAFE Influenza - Seasonal 07/17/2024 07/17/2024 025 12:32 AM PRIVATE MORTGAGE BANKER SAFE Assessment Noted Time PHQ-9 Depression Total Score: 2 08/04/19 23 10:35 AM PRIVATE MORTGAGE BANKER SAFE documented as of this encounter Care Teams Underwriting Internship Relationship Specialty Start Date End Date Emilee Lehman APRN [address] [place] [address] PCP - General NURSE PRACTITIONER 08/04/22 [place] [address] [facility] [address] [place] [address] Consulting Physician CARDIOVASCULAR DISEASE 11/20/24 documented as of this encounter
[2025-01-25 15:50] VITALS: BP 139/60; PULSE 87; RESP 20; TEMP 36.6; O2SAT 100
[2025-01-25 16:49] LABS: EDCOVIDSCREEN Negative (Negative); EDINFLUASCREEN Negative (Negative); EDINFLUBSCREEN Negative (Negative)
--- NOTE | 2025-01-25 17:00 | ED_ITS ---
HPI - URI/Sore Throat General Chief Complaint: Upper Respiratory Infection Stated Complaint: Fever/chills/chest congestion/sinus pressure Time Seen by Provider: 01/25/25 16:35 Source: patient and RN notes reviewed Mode of arrival: ambulatory Limitations: no limitations History of Present Illness HPI Narrative: 69-year-old female presents Express Care complaining of cough, chest congestion, sinus pressure, chills, fevers for approximately 6 days. Patient has a history of pulmonary nodules, COPD states she has not smoked in over 30 years. Patient uses a daily inhaler. Patient says her symptoms having got much better. She also reports a mucopurulent cough that is worse than normal. Patient denies any difficulty breathing, chest pain, nausea vomiting, diarrhea, abdominal pain, or any other symptoms. Related Data Home Medications ?Medication ?Instructions ?Recorded ?Confirmed ?Last Taken ?Type albuterol sulfate 90 mcg/actuation 1 inh inhalation Q4H Shortness Of 08/09/23 10/04/23 10/04/23 History aerosol inhaler Breath Or Wheezing aspirin 81 mg tablet,delayed 81 mg PO DAILY 08/09/23 10/04/23 Unknown History release (Adult Low Dose Aspirin) coenzyme Q10 200 mg capsule 200 mg PO DAILY 08/09/23 10/04/23 Unknown History dapagliflozin propanediol 10 mg 10 mg PO DAILY 08/09/23 10/04/23 Unknown History tablet (Farxiga) denosumab 60 mg/mL subcutaneous 60 mg subcut [id number] 08/09/23 10/04/23 Unknown History syringe ezetimibe 10 mg tablet 10 mg PO DAILY 08/09/23 10/04/23 Unknown History multivitamin 1 tablet PO DAILY 08/09/23 10/04/23 Unknown History omega-3 fatty acids 1,000 mg 1,000 mg PO BID 08/09/23 10/04/23 Unknown History capsule omeprazole 20 mg tablet,delayed 20 mg PO HS 08/09/23 10/04/23 Unknown History release pantoprazole 40 mg tablet,delayed 40 mg PO QAM 08/09/23 10/04/23 Unknown History release pioglitazone 30 mg tablet 30 mg PO QAM 08/09/23 10/04/23 Unknown History rosuvastatin 10 mg tablet 10 mg PO 2XW 08/09/23 10/04/23 Unknown History semaglutide 3 mg tablet (Rybelsus) 3 mg PO QAM 08/09/23 10/04/23 Unknown History umeclidinium 62.5 mcg-vilanterol 1 inh inhalation DAILY 08/09/23 10/04/23 Unknown History 25 mcg/actuation powdr for inhalation (Anoro Ellipta) ferrous sulfate 325 mg (65 mg 325 mg PO DAILY 10/21/23 10/21/23 Unknown History iron) tablet fluticasone propionate 50 1 spray intranasal DAILY 10/21/23 10/21/23 Unknown History mcg/actuation nasal spray,suspension losartan 50 mg-hydrochlorothiazide tablet 01/25/25 Unknown History 12.5 mg tablet Allergies Allergy/AdvReac Type Severity Reaction Status Date / Time lisinopril Allergy Swelling Verified 01/25/25 15:55 Penicillins Allergy Rash Verified 01/25/25 15:55 meperidine (From Demerol) AdvReac Vomiting Verified 01/25/25 15:55 Review of Systems Review of Systems: CONSTITUTIONAL: Positive for fevers and chills. Negative for body aches or sweats. EYES: Denies visual changes, redness, or discharge. ENT: Denies rhinorrhea, congestion, sore throat, or otalgia. CARDIOVASCULAR: Denies chest pain, palpitations, dizziness, lightheadedness or edema. RESPIRATORY: Positive for cough. Negative for wheezing or dyspnea. GASTROINTESTINAL: Denies abdominal pain, nausea, vomiting, or diarrhea. GENITOURINARY: Denies dysuria or hematuria. SKIN: Denies rash or itching. MUSCULOSKELETAL: Denies back pain, joint pain, or myalgia. NEUROLOGIC: Denies headache, numbness, or weakness. PSYCHIATRIC: Denies anxiety or depression. All other systems reviewed are negative, except as documented in HPI. [facility] Past Medical History Medical History History of cancer Family History Family History Father Alcoholism Diabetes mellitus Hypertension Heart disease Mother Hypertension Heart disease Depression Sibling Alcoholism Diabetes mellitus Hypertension Heart disease Grandparent Diabetes mellitus Hypertension Depression Cerebrovascular accident Grandparent Hypertension Heart disease Social History Social History Smoking packs per day: 1 Smoking cigarettes per day: 20.0 Years smoked: 20 Smoking pack-years: 20.00 Smoking status: Former smoker Tobacco type: cigarettes Smoking end date: 12/10/92 Alcohol intake: never Substance use: never Substance use type: does not use Do You Feel Safe in your Home?: Yes Lack of Transportation: No Lack of Food: Never True Current Housing: I Have Housing Concerned About Future Housing: No Difficulty Paying Gas/Electric Bills: No Difficulty Paying for Meds: No Currently Unemployed: No Education: Bachelor's Degree Difficulty w/ Childcare or Family Care: No Living arrangements: alone Spiritual care concerns: No Comments At the time of my signature, I reviewed and agree with the nursing past medical, surgical, social, and family history. There is no relevant family history pertinent to the patient complaint. Exam Narrative: GENERAL: This is a well-nourished, well-developed adult, in no apparent distress. They are non ill-appearing, nontoxic appearing. HEAD: normocephalic, atraumatic. EYES: Sclera clear/white. Conjunctiva normal. Vision is grossly intact. Extraocular movements intact EARS: External ears normal, auditory canals clear and without drainage, TMs normal without perforation. Hearing grossly intact. NOSE: External nose normal with no obvious nasal discharge, nasal turbinates erythema without swelling, no rhinorrhea. THROAT: Mucous membranes moist, posterior pharynx body without erythema. No exudate. Uvula midline. Postnasal drip present. NECK: Neck supple, non-tender without lymphadenopathy, masses or thyromegaly. CARDIOVASCULAR: Regular rate and rhythm without murmurs, gallops, or rubs. RESPIRATORY: Lung sounds diminished.. Breath sounds equal bilaterally. No wheezes, rales, or rhonchi. SKIN: warm, Dry, intact with no suspicious lesions or rash, good texture and turgor. NEURO: awake, alert, and oriented to person, place and time. There were no obvious focal neurologic abnormalities. EXTREMITIES: No joint tenderness, effusion, or edema noted. BACK: Nontender without deformity. No CVA tenderness. No cervical, thoracic, or lumbar point tenderness, crepitus or step-off. Course Course Emergency Course: Portions of this record may have been created with voice recognition software Level of Care: Express Care Visit Vital Signs Vital signs: Vital Signs Temperature 98 F 01/25/25 15:50 Pulse Rate 87 01/25/25 15:50 Respiratory Rate 20 01/25/25 15:50 Blood Pressure 139/60 01/25/25 15:50 Pulse Oximetry 100 01/25/25 15:50 Oxygen Delivery Room Air 01/25/25 15:50 Temperature 98 F 01/25/25 15:50 Pulse Rate 87 01/25/25 15:50 Respiratory Rate 20 01/25/25 15:50 Blood Pressure 139/60 01/25/25 15:50 Pulse Oximetry 100 01/25/25 15:50 Oxygen Delivery Room Air 01/25/25 15:50 Reviewed MDM - URI/Sore Throat MDM Narrative Medical decision making narrative: Rapid COVID and flu were negative. Chest x-ray shows possible pneumonia at the left mid lobe. Incidental finding of a wedge deformity between T12 and L1 along with a grade 1 retrolisthesis at T11-T12 with degenerative disc disease. There is no point tenderness the patient's spine. Patient denies any recent falls or injuries. Patient states she does have a history of herniated disc in this region. Pulmonary nodule noted to right upper lobe. Patient says she has multiple pulmonary nodules and she is aware of there being followed by her head concierge. Given patient's history of COPD will go ahead and treat her with levofloxacin. Patient has an allergy to penicillins. Differential Diagnosis Differential diagnosis: Likely upper respiratory infection, viral infection and other (Pneumonia, COPD exacerbation) Lab Data Attestation: I reviewed the patient's lab results. Labs: Lab Results 01/25/25 Range/Units 16:47 POC Influenza A Ag Negative (Negative) POC Influenza B Ag Negative (Negative) POC SARS CoV-2 Ag Negative (Negative) Imaging Data Radiologist's impression: ITS Impressions Chest X-Ray 01/25/25 16:26 IMPRESSION: Segmental groundglass opacity in the left midlung concerning for infection. 7 mm right upper lobe pulmonary nodule, recommend nonemergent, outpatient low- dose noncontrast CT of the chest for confirmation and further characterization. Grade 1 retrolisthesis at T11-12 with severe degenerative disc disease at that level. Mild anterior wedge deformity at T12 and L1, presumably chronic in the absence of acute pain/tenderness. Critical Care Time Critical Care Time Critical Care Time: No Discharge Plan Discharge Clinical Impression: Pneumonia Qualifiers: Pneumonia type: due to unspecified organism Laterality: left Lung location: lower lobe of lung Qualified Code(s): J18.9 - Pneumonia, unspecified organism Patient Disposition: Home Condition: Stable Instructions: Antibiotic Form, Pneumonia (ED) Additional Instructions: Take antibiotics as directed until complete. eat small frequent meals. Get lots of rest and drink fluids. Use your inhaler as directed. Use Tylenol as needed for pain or fevers. You may take up to 1000 mg Tylenol every 6-8 hours. Do not exceed 1000 mg per dose, do exceed more than 4000 mg of Tylenol in a day. Follow-up with PCP in 3-5 days Go to the ER if you develop worsening shortness of breath, difficulty breathing, chest pains, fevers, nausea vomiting, weakness, confusion, or any serious concerns. Patient Language: Kenyan Prescriptions: New levofloxacin 750 mg tablet 750 mg PO DAILY 5 Days Qty: 5 0RF No Action ferrous sulfate 325 mg (65 mg iron) Tablet 325 mg PO DAILY fluticasone propionate [Flonase] 50 mcg/actuation [place],Suspension 1 spray INTRANASAL DAILY Rx Instructions: administer into each nostril losartan-hydrochlorothiazide 50-12.5 mg tablet Rybelsus 3 mg tablet 3 mg PO QAM dapagliflozin propanediol [Farxiga] 10 mg tablet 10 mg PO DAILY pioglitazone 30 mg tablet 30 mg PO QAM pantoprazole 40 mg tablet,delayed release (DR/EC) 40 mg PO QAM Anoro Ellipta 62.5-25 mcg/actuation blister with device 1 inh inhalation DAILY ezetimibe 10 mg tablet 10 mg PO DAILY rosuvastatin 10 mg tablet 10 mg PO 2XW omeprazole 20 mg tablet,delayed release (DR/EC) 20 mg PO HS denosumab 60 mg/mL syringe 60 mg subcut [id number] albuterol sulfate 90 mcg/actuation HFA aerosol inhaler 1 inh inhalation Q4H coenzyme Q10 200 mg capsule 200 mg PO DAILY omega-3 fatty acids 1,000 mg capsule 1,000 mg PO BID multivitamin Tablet 1 tablet PO DAILY aspirin [Adult Low Dose Aspirin] 81 mg tablet,delayed release (DR/EC) 81 mg PO DAILY Follow-up/Referrals: Fallon,Emilee Babin APRN [Primary Care Provider] - Time of Disposition: 16:55
== END 2025-01-25 16:58 | disposition home or self-care (01) ==
PROVIDERS: PCP Registered Nurse
DX: J18.9 Pneumonia, unspecified organism (principal); Z20.822 Contact with and (suspected) exposure to COVID-19; J44.9 Chronic obstructive pulmonary disease, unspecified; Z79.82 Long term (current) use of aspirin; Z87.891 Personal history of nicotine dependence; Z85.9 Personal history of malignant neoplasm, unspecified
CPT/HCPCS: 71046; 87426; 87804; 99213; G0463

== ENCOUNTER 2025-05-05 13:52 | Emergency (ER) | payer MEDICARE, BC, SELFPAY ==
[2025-05-05 14:02] VITALS: BP 158/71; PULSE 81; RESP 18; TEMP 36.6; O2SAT 100
--- NOTE | 2025-05-05 15:09 | ED.URI ---
HPI - URI/Sore Throat General Chief Complaint: Upper Respiratory Infection Stated Complaint: sinus Time Seen by Provider: 05/05/25 14:59 Source: patient and RN notes reviewed Mode of arrival: ambulatory Limitations: no limitations History of Present Illness HPI Narrative: 70-year-old female patient with history of diabetes and COPD presents today complaining of a 2 week history of sinus pressure, nasal congestion, frontal headache, and thick nasal mucus that has worsened over the past 2 days. Patient was initially diagnosed with influenza B 2 weeks ago and treated with Tamiflu, but has not felt better. Denies shortness of breath, fever, cough. She initially tried some Mucinex, but has not tried any OTC medication for several days. Related Data Home Medications ?Medication ?Instructions ?Recorded ?Confirmed ?Last Taken ?Type albuterol sulfate 90 mcg/actuation 1 inh inhalation Q4H Shortness Of 08/09/23 10/04/23 10/04/23 History aerosol inhaler Breath Or Wheezing aspirin 81 mg tablet,delayed 81 mg PO DAILY 08/09/23 10/04/23 Unknown History release (Adult Low Dose Aspirin) coenzyme Q10 200 mg capsule 200 mg PO DAILY 08/09/23 10/04/23 Unknown History dapagliflozin propanediol 10 mg 10 mg PO DAILY 08/09/23 10/04/23 Unknown History tablet (Farxiga) denosumab 60 mg/mL subcutaneous 60 mg subcut [id number] 08/09/23 10/04/23 Unknown History syringe ezetimibe 10 mg tablet 10 mg PO DAILY 08/09/23 10/04/23 Unknown History multivitamin 1 tablet PO DAILY 08/09/23 10/04/23 Unknown History omega-3 fatty acids 1,000 mg 1,000 mg PO BID 08/09/23 10/04/23 Unknown History capsule omeprazole 20 mg tablet,delayed 20 mg PO HS 08/09/23 10/04/23 Unknown History release pantoprazole 40 mg tablet,delayed 40 mg PO QAM 08/09/23 10/04/23 Unknown History release pioglitazone 30 mg tablet 30 mg PO QAM 08/09/23 10/04/23 Unknown History rosuvastatin 10 mg tablet 10 mg PO 2XW 08/09/23 10/04/23 Unknown History semaglutide 3 mg tablet (Rybelsus) 3 mg PO QAM 08/09/23 10/04/23 Unknown History umeclidinium 62.5 mcg-vilanterol 1 inh inhalation DAILY 08/09/23 10/04/23 Unknown History 25 mcg/actuation powdr for inhalation (Anoro Ellipta) ferrous sulfate 325 mg (65 mg 325 mg PO DAILY 10/21/23 10/21/23 Unknown History iron) tablet fluticasone propionate 50 1 spray intranasal DAILY 10/21/23 10/21/23 Unknown History mcg/actuation nasal spray,suspension losartan 50 mg-hydrochlorothiazide tablet 01/25/25 Unknown History 12.5 mg tablet Allergies Allergy/AdvReac Type Severity Reaction Status Date / Time lisinopril Allergy Swelling Verified 05/05/25 14:04 Penicillins Allergy Rash Verified 05/05/25 14:04 meperidine (From Demerol) AdvReac Vomiting Verified 01/25/25 15:55 [facility] [place] Past Medical History Medical History History of cancer Family History Family History Father Alcoholism Diabetes mellitus Hypertension Heart disease Mother Hypertension Heart disease Depression Sibling Alcoholism Diabetes mellitus Hypertension Heart disease Grandparent Diabetes mellitus Hypertension Depression Cerebrovascular accident Grandparent Hypertension Heart disease Social History Social History Smoking packs per day: 1 Smoking cigarettes per day: 20.0 Years smoked: 20 Smoking pack-years: 20.00 Smoking status: Former smoker Tobacco type: cigarettes Smoking end date: 12/10/92 Alcohol intake: never Substance use: never Substance use type: does not use Do You Feel Safe in your Home?: Yes Lack of Transportation: No Lack of Food: Never True Current Housing: I Have Housing Concerned About Future Housing: No Difficulty Paying Gas/Electric Bills: No Difficulty Paying for Meds: No Currently Unemployed: No Education: Bachelor's Degree Difficulty w/ Childcare or Family Care: No Living arrangements: alone Spiritual care concerns: No Comments At time of signature, I have reviewed and agree with nursing past medical, surgical, social and family history unless otherwise noted. Please see nursing chart for further information. There is no relevant family history pertinent to the presenting complaint Exam Narrative: GENERAL: Mildly ill appearing, well-nourished, and in no acute distress. HEAD: Normocephalic, atraumatic. EYES: EOMI. No redness or drainage. Conjunctivae normal. ENT: Mucous membranes pink and moist. Nares congested. Bilateral maxillary sinus tenderness. No rhinorrhea. TMs normal bilaterally. Throat normal. Uvula midline. NECK: Normal AROM. Supple. No lymphadenopathy. CHEST: No respiratory distress. Clear to auscultation. HEART: Regular rate and rhythm. No murmur appreciated. EXTREMITIES: Normal range of motion. No edema. SKIN: Warm, dry, no rash. Capillary refill normal. Normal skin turgor. NEURO: No focal deficits. Alert and oriented x3. Gait steady. PSYCH: Normal affect. No signs of depression or anxiety. Course Course Level of Care: Express Care Visit Vital Signs Vital signs: Vital Signs Temperature 97.9 F 05/05/25 14:02 Pulse Rate 81 05/05/25 14:02 Respiratory Rate 18 05/05/25 14:02 Blood Pressure 158/71 H 05/05/25 14:02 Pulse Oximetry 100 05/05/25 14:02 Oxygen Delivery Room Air 05/05/25 14:02 Temperature 97.9 F 05/05/25 14:02 Pulse Rate 81 05/05/25 14:02 Respiratory Rate 18 05/05/25 14:02 Blood Pressure 158/71 H 05/05/25 14:02 Pulse Oximetry 100 05/05/25 14:02 Oxygen Delivery Room Air 05/05/25 14:02 Reviewed MDM - URI/Sore Throat MDM Narrative Medical decision making narrative: 70-year-old female patient with history of diabetes and COPD presents today complaining of a 2 week history of sinus pressure, nasal congestion, frontal headache, and thick nasal mucus that has worsened over the past 2 days. Patient was initially diagnosed with influenza B 2 weeks ago and treated with Tamiflu, but has not felt better. Denies shortness of breath, fever, cough. She initially tried some Mucinex, but has not tried any OTC medication for several days. Upon exam, patient is mildly ill appearing with bilateral maxillary sinus tenderness to palpation and nasal congestion. Patient will be started on a course of doxycycline for sinusitis. She states her blood sugars are very labile so she does not wish to take any steroids at this time. Patient agrees with plan. Vital signs stable. Anticipatory guidance given. Differential Diagnosis Differential diagnosis: Likely upper respiratory infection, sinusitis and viral infection Critical Care Time Critical Care Time Critical Care Time: No Discharge Plan Discharge Clinical Impression: Sinusitis Qualifiers: Sinusitis location: maxillary Chronicity: acute Recurrence: non-recurrent Qualified Code(s): J01.00 - Acute maxillary sinusitis, unspecified Patient Disposition: Home Condition: Stable Instructions: Antibiotic Form, Sinusitis (ED) Additional Instructions: Please take the doxycycline as prescribed until gone. You may consider using a steroid nasal spray such as Flonase or some nasal saline to help break up your thick mucus. Follow-up with your PCP in 3 days if symptoms are not improving. Patient Language: Khmer Prescriptions: New doxycycline hyclate 100 mg tablet 100 mg PO BID 7 Days Qty: 14 0RF No Action ferrous sulfate 325 mg (65 mg iron) Tablet 325 mg PO DAILY fluticasone propionate [Flonase] 50 mcg/actuation [place],Suspension 1 spray INTRANASAL DAILY Rx Instructions: administer into each nostril losartan-hydrochlorothiazide 50-12.5 mg tablet levofloxacin 750 mg tablet 750 mg PO DAILY 5 Days Qty: 5 0RF Rybelsus 3 mg tablet 3 mg PO QAM dapagliflozin propanediol [Farxiga] 10 mg tablet 10 mg PO DAILY pioglitazone 30 mg tablet 30 mg PO QAM pantoprazole 40 mg tablet,delayed release (DR/EC) 40 mg PO QAM Anoro Ellipta 62.5-25 mcg/actuation blister with device 1 inh inhalation DAILY ezetimibe 10 mg tablet 10 mg PO DAILY rosuvastatin 10 mg tablet 10 mg PO 2XW omeprazole 20 mg tablet,delayed release (DR/EC) 20 mg PO HS denosumab 60 mg/mL syringe 60 mg subcut [id number] albuterol sulfate 90 mcg/actuation HFA aerosol inhaler 1 inh inhalation Q4H coenzyme Q10 200 mg capsule 200 mg PO DAILY omega-3 fatty acids 1,000 mg capsule 1,000 mg PO BID multivitamin Tablet 1 tablet PO DAILY aspirin [Adult Low Dose Aspirin] 81 mg tablet,delayed release (DR/EC) 81 mg PO DAILY Follow-up/Referrals: Fallon,Emilee Babin APRN [Primary Care Provider, Unknown] Time of Disposition: 15:13
== END 2025-05-05 15:17 | disposition home or self-care (01) ==
PROVIDERS: Emergency Provider Nurse Practitioner; PCP Registered Nurse
DX: J01.00 Acute maxillary sinusitis, unspecified (principal); I10 Essential (primary) hypertension; E78.00 Pure hypercholesterolemia, unspecified; J44.9 Chronic obstructive pulmonary disease, unspecified; K21.9 Gastro-esophageal reflux disease without esophagitis; E11.9 Type 2 diabetes mellitus without complications; Z85.3 Personal history of malignant neoplasm of breast; Z92.21 Personal history of antineoplastic chemotherapy; Z79.82 Long term (current) use of aspirin; Z87.891 Personal history of nicotine dependence
CPT/HCPCS: 99213; G0463